=== PATIENT | female | born 1945 | race Caucasian/White ===

== ENCOUNTER → 2017-05-25 11:55 | Outpatient (CLI) | payer MEDICARE, OTHER, SELFPAY | PROVIDERS: Family Provider Internal Medicine; PCP Internal Medicine; Visit Provider Nurse Practitioner Acute Care | DX: J44.1 Chronic obstructive pulmonary disease with (acute) exacerbation (principal) | CPT/HCPCS: 87070; 87077; 87186; 87205 ==

== ENCOUNTER → 2017-07-07 09:36 | Outpatient (CLI) | payer MEDICARE, OTHER, SELFPAY ==
--- NOTE | 2017-07-07 11:09 | PFTCOMP ---
COMPLETE PULMONARY FUNCTION TEST INTERPRETATION Brief HPI: Patient is a 71 year old female, currently under the care of Amelia Lam, who presents to [facility] for complete pulmonary function tests secondary to diagnosis of COPD. Respiratory therapist reports good effort and reproducible results. Interpretation: Forced expiration spirometry shows a severe large airways obstructive ventilatory defect with an FEV1 of 52 % predicted. There is no significant bronchodilator response by strict ATS criteria. Spirograms are of good quality and plateau slowly, indicating slowly emptying areas of the lungs. The respiratory flow volume loop shows decreased expiratory flow rates at all lung volumes consistent with airway obstruction. Lung volumes by body plethysmography show an elevated total lung capacity at 5.13 L, 122 % predicted. FRC and RV are elevated out of proportion. Lung volume measurements are consistent with hyperinflation and air-trapping. Diffusion capacity by carbon monoxide is decreased at 53 % predicted. The airway resistance is elevated. Compared to previous pulmonary function tests from 10/16/2015, there has been no significant change. Impression: Irreversible moderately severe large airways obstructive ventilatory defect with a symmetric reduction diffusing capacity resulting in air trapping with hyperinflation. There is been no significant private branch exchange repairer the last 2 years.
--- NOTE | 2017-07-07 11:12 | PFTCOMP_ITS ---
COMPLETE PULMONARY FUNCTION TEST INTERPRETATION Brief HPI: Patient is a 71 year old female, currently under the care of Amelia Lam, who presents to [facility] for complete pulmonary function tests secondary to diagnosis of COPD. Respiratory therapist reports good effort and reproducible results. Interpretation: Forced expiration spirometry shows a severe large airways obstructive ventilatory defect with an FEV1 of 52 % predicted. There is no significant bronchodilator response by strict ATS criteria. Spirograms are of good quality and plateau slowly, indicating slowly emptying areas of the lungs. The respiratory flow volume loop shows decreased expiratory flow rates at all lung volumes consistent with airway obstruction. Lung volumes by body plethysmography show an elevated total lung capacity at 5.13 L, 122 % predicted. FRC and RV are elevated out of proportion. Lung volume measurements are consistent with hyperinflation and air-trapping. Diffusion capacity by carbon monoxide is decreased at 53 % predicted. The airway resistance is elevated. Compared to previous pulmonary function tests from 10/16/2015, there has been no significant change. Impression: Irreversible moderately severe large airways obstructive ventilatory defect with a symmetric reduction diffusing capacity resulting in air trapping with hyperinflation. There is been no significant exchange mechanic the last 2 years.
== END ==
PROVIDERS: Family Provider Internal Medicine; PCP Internal Medicine; Visit Provider Nurse Practitioner Acute Care
DX: J44.9 Chronic obstructive pulmonary disease, unspecified (principal); R06.00 Dyspnea, unspecified
CPT/HCPCS: 94060; 94726; 94729

== ENCOUNTER → 2017-11-17 09:00 | Outpatient (CLI) | payer MEDICARE, OTHER, SELFPAY | PROVIDERS: Family Provider Internal Medicine; PCP Internal Medicine; Visit Provider Anesthesiology Pain Medicine | DX: M54.9 Dorsalgia, unspecified (principal); M79.606 Pain in leg, unspecified | CPT/HCPCS: 72148 ==

== ENCOUNTER → 2018-08-04 | Outpatient (CLI) | payer MEDICARE, OTHER, SELFPAY ==
[2018-05-08 14:35] VITALS: BMI 24.5
[2018-08-04 11:37] VITALS: PULSE 68; PULSE 70; PULSE 80; PULSE 85; PULSE 87; PULSE 88; PULSE 89; O2SAT 90; O2SAT 91; O2SAT 93; O2SAT 95
--- NOTE | 2018-08-04 14:18 | PCM.PSN.6M ---
PSN 6 Minute Walk Test - 6 Minute Walk Test 6 Minute Walk Test: 6 Minute Walk Test PSN:6-Minute Walk Test Start: 08/04/18 11:33 Freq: Status: Active Protocol: [id number].6MINW Document 08/04/18 11:37 ИВАН (Rec: 08/04/18 11:40 ИВАН [id number]) 6 Minute Walk Test Date Performed 08/04/18 Time Performed 11:20 Height 5 ft 1 in Weight: 61.235 kg Weight in Pounds 135.[address]: Connor Carrera Assistive device used: None Pre-test Oxygen Delivery Method Room Air Pulse Ox (%) 95 Pulse Rate (60-100 beats/min) 68 Dyspnea Amy Scale (0-10) 0 Exertion Amy Scale (6-20) 6 1st minute Oxygen Delivery Method Room Air Pulse Ox (%) 93 Pulse Rate (60-100 beats/min) 80 2nd minute Oxygen Delivery Method Room Air Pulse Ox (%) 91 Pulse Rate (60-100 beats/min) 85 3rd minute Oxygen Delivery Method Room Air Pulse Ox (%) 90 Pulse Rate (60-100 beats/min) 85 4th minute Oxygen Delivery Method Room Air Pulse Ox (%) 91 Pulse Rate (60-100 beats/min) 87 5th minute Oxygen Delivery Method Room Air Pulse Ox (%) 90 Pulse Rate (60-100 beats/min) 89 6th minute Oxygen Delivery Method Room Air Pulse Ox (%) 91 Pulse Rate (60-100 beats/min) 88 Dyspnea Amy Scale (0-10) 1 Exertion Amy Scale (6-20) 13 Post-test Oxygen Delivery Method Room Air Pulse Ox (%) 93 Pulse Rate (60-100 beats/min) 70 Full Laps Walked 14 Partial Lap, Number of Tiles Walked 41 Total Distance Walked (ft) 867 - Interpretation Interpretation: The patient was able to ambulate 867 feet over the course of 6 minutes on room air with no assistive devices or breaks. The patient did have desaturation as low as 90%. These findings are consistent with a respiratory limitation exercise tolerance. - Recommendations Recommendations: No supplemental oxygen is indicated at this time. However, patient will need to be followed closely given level of desaturation.
== END | disposition home or self-care (01) ==
PROVIDERS: Family Provider Internal Medicine; PCP Internal Medicine; Referring Provider Nurse Practitioner Acute Care; Visit Provider Nurse Practitioner Acute Care
DX: J44.9 Chronic obstructive pulmonary disease, unspecified (principal)
CPT/HCPCS: 94618

== ENCOUNTER → 2018-08-08 | Outpatient (CLI) | payer MEDICARE, OTHER, SELFPAY ==
[2018-05-08 14:35] VITALS: BMI 24.5
--- NOTE | 2018-08-09 11:04 | PFT ---
INTRODUCTION: The patient is a 72-year-old female that presents for pulmonary function studies secondary to a diagnosis of COPD. Respiratory therapy reports good patient effort. Bronchodilators were used during testing. INTERPRETATION: Forced expiration spirometry demonstrates the presence of a severe large airways obstructive ventilatory defect. There was no significant response to aerosolized bronchodilators, based upon strict ATS criteria. Spirograms are of fair quality and do not plateau indicating slow emptying of the lungs. Body plethysmography was performed and reveals an elevated TLC and RV, indicative of underlying hyperinflation and air-trapping. Diffusing capacity by single breath CO is reduced at 57% of predicted. IMPRESSION: Irreversible severe large airways obstructive ventilatory defect with associated hyperinflation, air trapping and reduction in diffusing capacity.
== END | disposition home or self-care (01) ==
LOC: PSN 10:51
PROVIDERS: Family Provider Internal Medicine; PCP Internal Medicine; Referring Provider Nurse Practitioner Acute Care; Visit Provider Nurse Practitioner Acute Care
DX: J44.9 Chronic obstructive pulmonary disease, unspecified (principal)
CPT/HCPCS: 94060; 94726; 94729

== ENCOUNTER → 2019-01-01 20:48 | Outpatient (CLI) | payer MEDICARE, SELFPAY ==
[2018-11-28 08:30] VITALS: BMI 25.7
[2018-12-20 11:23] VITALS: BMI 25.7
== END ==
PROVIDERS: Family Provider Internal Medicine; PCP Internal Medicine; Referring Provider Internal Medicine Critical Care Medicine; Visit Provider Internal Medicine Critical Care Medicine
DX: G47.33 Obstructive sleep apnea (adult) (pediatric) (principal)
CPT/HCPCS: 95811

== ENCOUNTER → 2019-01-30 | Outpatient (CLI) | payer MEDICARE, OTHER, SELFPAY ==
[2018-12-20 11:23] VITALS: BMI 25.7
--- NOTE | 2019-01-30 11:02 | BD_ITS ---
STUDY: DUAL ENERGY X-RAY ABSORPTIOMETRY / DXA REASON FOR EXAM: Female, 73 years old. Early menopause. Loss of height. TECHNIQUE: Bone Mineral Density (BMD) measurements of lumbar spine and bilateral hips were obtained. COMPARISON: Comparison is made with prior examination of July 23, 1997. FINDINGS: Lumbar Spine (L1-L4): g/cm2 (0.913) / T-score (-2.1) / Z-score (-0.4) Findings are suggestive of osteopenia with a high fracture risk. Left Femur Total: g/cm2 (0.833) / T-score (-1.4) / Z-score (0.2) Left Femoral Neck: g/cm2 (0.700) / T-score (-2.4) / Z-score (-0.6) Right Femur Total: g/cm2 (0.758) / T-score (-2.0) / Z-score (-0.3) Right Femoral Neck: g/cm2 (0.658) / T-score (-2.7) / Z-score (0.9) The T-Scores on the most recent prior examination were: Left Femur Total: which represents a worsening of 15.2%. BD/Dexa Bone Density Study IMPRESSION: The patient is considered osteoporotic as outlined below according to World [employer] Organization (WHO) criteria with a high fracture risk. There has been worsening of bone density since the previous examination. Reference Information: The T-score is the number of standard deviations above or below the standard which is normal for young adults at their peak bone mineral density. The World Health Organization (WHO) interprets the T-scores as follows: Above -1 Normal bone density Between -1 and -2.5 Osteopenia Equal to / or below -2.5 Osteoporosis As a practical clinical guideline, osteopenia may be graded as follows: Mild -1 through -1.5 Moderate -1.6 through -2.0 Severe -2.1 through -2.4 The Z-score is the number of standard deviations above or below age-matched controls. A Z-score of less than -1.5 would be considered abnormal. References: 1. NIH Osteoporosis and Related Bone Diseases http://www.osteo.org 2. International Society for Clinical Densitometry http://www.iscd.org 3. National Osteoporosis Foundation http://www.nof.org Electronically Signed: Peewee Almodovar, at 11:12 EDT , Service support ,
== END | disposition home or self-care (01) ==
LOC: OPBD 10:33
PROVIDERS: Family Provider Internal Medicine; PCP Internal Medicine; Referring Provider Internal Medicine; Visit Provider Internal Medicine
DX: M85.89 Other specified disorders of bone density and structure, multiple sites (principal)
CPT/HCPCS: 77080

== ENCOUNTER → 2019-06-12 13:42 | Outpatient (CLI) | payer MEDICARE, OTHER, SELFPAY ==
[2019-05-15 06:12] VITALS: BMI 27.1
[2019-06-12 13:17] VITALS: BMI 27.1
--- NOTE | 2019-06-12 13:43 | CT_ITS ---
STUDY: LOW DOSE CT LUNG CANCER SCREENING REASON FOR EXAM: Female, 73 years old. LUNG CANCER SCREENING.40PACK YEAR HISTORY RADIATION DOSAGE (If Supplied By Facility): CTDIvol = ( 3.02 ) mGy, DLP = ( 93.65 ) mGycm TECHNIQUE: No contrast was administered. Low dose technique was utilized (average mAS-38 and kVp 120). 1.25 mm axial source images with a slice interval of 1.25-mm were reconstructed in lung windows. 2.5 mm axial source images with a slice interval of 2.5-mm were reconstructed in lung windows. 5.0 mm axial source images with a slice interval of 5.0-mm were reconstructed in soft tissue windows. Nodule measured using lung windows on PACS and/or independent workstation with automated measurement of minimum and maximum diameter. Nodule measurement reported as average diameter rounded to the nearest whole number. Growth is defined as an increase ins size of greater than 1.5 mm. COMPARISON: Comparison is made with prior examination January 11, 2015. NODULES: No suspicious nodules are seen. Emphysema: Minimal emphysematous changes. Endobronchial lesion: None Aorta: Atherosclerotic calcification of the aortic arch. Coronary arteries: Coronary artery calcification. Heart: Unremarkable. Pulmonary artery: Unremarkable. Mediastinal nodes: Small mediastinal lymph nodes. Other chest and abdominal findings: Degenerative changes of the thoracic spine. CT/Low Dose CT Lung Screening IMPRESSION: Lung-RADS category 2 - Continue annual screening with LDCT in 12 months. IMPORTANT NOTES FOR USE: ACR Lung-RADS Version 1.0 Assessment Categories Release Date: July 30, 2013 Category: Coded 0-4 bases on nodule(s) with highest degree of suspicion. Negative screen is defined as categories 1 and 2; a positive screen is defined as categories 3 and 4. Category 3 and 4A nodules that are unchanged on interval CT should be coded as category 2, and individuals returned to screening in 12 months. Category 4X: Category 3 or 4 nodules with additional imaging findings that increase the suspicion of lung cancer, such as spiculation, GGN that doubles in size in 1 year, enlarged lymph notes, etc. Category Modifiers: S (significant finding unrelated to lung cancer) and C (prior history of treated lung cancer) may be added to the 0-4 Lung-RADS Electronically Signed: Peewee Almodovar, at 14:58 EDT , Service support ,
--- NOTE | 2019-06-12 13:46 | CT_ITS ---
STUDY: CT SOFT TISSUE NECK WITH CONTRAST REASON FOR EXAM: Female, 73 years old. Palpable lumps in the posterior neck per patient. RADIATION DOSAGE (If Supplied By Facility): CTDIvol = ( 17.82 ) mGy, DLP = ( 493.79 ) mGycm TECHNIQUE: The patient was scanned in a multi-detector CT scanner. High resolution transaxial imaging was performed following intravenous administration of 100 mL of Isovue-300. Sagittal and coronal images were reconstructed. Individualized dose optimization techniques were used for this CT. COMPARISON: CT neck without contrast 01/11/2015. FINDINGS: Normal bilateral parotid glands. Normal bilateral table setter spaces. Normal bilateral parapharyngeal spaces. Normal bilateral carotid spaces. Normal bilateral sublingual and submandibular glands and spaces. Normal visualized nasopharynx. Normal retropharyngeal space. Normal perivertebral space. Normal visualized bilateral faucial tonsils. The visualized tongue, tongue base and oropharynx are normal. The visualized cervical lymph nodes (levels I-) are within normal size limits, and maintain normal morphology. There is no demonstrated solid or cystic mass lesion. There is no abnormal contrast enhancement. Normal epiglottis, bilateral vallecula and hypopharynx. The pre-epiglottic and paraglottic adipose spaces are normal. Normal visualized bilateral piriform sinuses, aryepiglottic folds, vocal cords, and arytenoid-cricoid articulations. Normal subglottic trachea. Small hypodense nodules in both lobes of the thyroid gland. Normal visualized pulmonary apices. Normal visualized paranasal sinuses. Pronounced C4-C5 disc space height narrowing with endplate sclerosis and minimal asymmetric osteophytes arising from the uncovertebral joints. Pronounced C6-C7 disc space height narrowing with small anterior and posterior marginal spurs. Moderate C5-C6 disc space height narrowing. Minimal degenerative anterolisthesis of C3 on C4. CT/Soft Tissue Neck WITH Contrast IMPRESSION: 1. No CT evidence of mass or lymphadenopathy in the suprahyoid neck and infrahyoid neck. 2. Small and few benign reactive nodes in the suprahyoid neck are unchanged. 3. Small hypodense nodules in both thyroid lobes were present previously. 4. No significant interval changes when compared to 01/11/2015. Electronically Signed: Chip Flowers MD at 16:16 EDT , Service support ,
[2019-06-12 14:05] LABS: CREATININE FINGERSTICK 0.7 mg/dL (0.55-1.02)
== END ==
PROVIDERS: PCP Internal Medicine; Referring Provider Nurse Practitioner Family; Visit Provider Nurse Practitioner Family
DX: R59.0 Localized enlarged lymph nodes (principal); Z12.2 Encounter for screening for malignant neoplasm of respiratory organs; Z87.891 Personal history of nicotine dependence
CPT/HCPCS: 70491; G0297; Q9967

== ENCOUNTER → 2019-08-28 | Outpatient (CLI) | payer MEDICARE, SELFPAY ==
[2019-08-28 08:41] VITALS: BMI 27.1
== END | disposition home or self-care (01) ==
LOC: LABSPEC 14:08
PROVIDERS: PCP Internal Medicine; Referring Provider Nurse Practitioner Acute Care; Visit Provider Nurse Practitioner Acute Care
DX: J44.9 Chronic obstructive pulmonary disease, unspecified (principal); G47.33 Obstructive sleep apnea (adult) (pediatric)
CPT/HCPCS: 87070; 87077; 87186; 87205

== ENCOUNTER → 2019-11-20 09:38 | Outpatient (CLI) | payer MEDICARE, SELFPAY ==
[2019-08-28 08:41] VITALS: BMI 27.1
== END ==
PROVIDERS: PCP Internal Medicine; Visit Provider Nurse Practitioner Acute Care
DX: J44.9 Chronic obstructive pulmonary disease, unspecified (principal)
CPT/HCPCS: 87070; 87205

== ENCOUNTER → 2019-12-24 13:28 | Outpatient (CLI) | payer MEDICARE, OTHER, SELFPAY ==
[2019-08-28 08:41] VITALS: BMI 27.1
[2019-12-24 14:13] LABS: BNP,B-Type NATRIURETIC PEPTIDE 23.8 pg/mL (0-100)
== END ==
PROVIDERS: PCP Internal Medicine; Referring Provider Internal Medicine Critical Care Medicine; Visit Provider Internal Medicine Critical Care Medicine
DX: I50.32 Chronic diastolic (congestive) heart failure (principal)
CPT/HCPCS: 36415; 83880

== ENCOUNTER → 2020-01-11 12:43 | Outpatient (CLI) | payer MEDICARE, OTHER, SELFPAY ==
[2019-08-28 08:41] VITALS: BMI 27.1
--- NOTE | 2020-01-11 12:43 | ECHOD_ITS ---
Reason For Study: DYSPNEA Procedure This was a 2D Doppler, Color Flow transthoracic echocardiogram. Exam performed in department. Left Ventricle Normal LV size. The estimated ejection fraction is 65 %. No evidence for diastolic dysfunction. No regional wall motion abnormalities noted. Right Ventricle Normal RV size. Normal systolic function. Atria Normal left atrium. Normal right atrium. No doppler evidence for ASD. Mitral Valve There is no mitral valve stenosis. No mitral valve insufficiency. Tricuspid Valve There is no tricuspid stenosis. Trivial tricuspid valve insufficiency. Pulmonary artery systolic pressure is 30-35 mmHg. Aortic Valve Trisinus/trileaflet aortic valve. There is no aortic stenosis. No aortic valve insufficiency. Pulmonic Valve There is no pulmonic valvular stenosis. No pulmonic valve insufficiency. Great Vessels Normal aortic root. Pericardium/Pleural No pericardial effusion. MMode/2D Measurements & Calculations LVIDd: 3.8 cm IVSd: 0.78 cm Ao root diam: 3.2 cm LVIDs: 2.4 cm LVPWd: 0.85 cm FS: 36.2 % LAV(MOD-bp): 29.7 ml LVAd ap4: 21.6 cm2 SV(MOD-sp4): 33.1 ml LAV(MOD-bp) Indexed: 18.6 ml/m2 EDV(MOD-sp4): 55.3 ml LAV(MOD-sp2): 32.4 ml EDV(sp4-el): 55.3 ml LAV(MOD-sp4): 26.9 ml LVAs ap4: 12.2 cm2 ESV(MOD-sp4): 22.2 ml ESV(sp4-el): 21.9 ml EF(MOD-sp4): 59.8 % EF(sp4-el): 60.4 % SV(sp4-el): 33.4 ml LA A4 area: 12.6 cm2 LA dimension(2D): 3.4 cm RA A4 area: 9.9 cm2 Time Measurements MV dec time: 0.30 sec Doppler Measurements & Calculations MV E max barry: 50.7 cm/sec Lat Peak E' Barry: 13.5 cm/sec Med Peak E' Barry: 8.3 cm/sec MV A max barry: 75.9 cm/sec E/E' lat: 3.7 E/E' med: 6.1 MV E/A: 0.67 Ao V2 max: 164.6 cm/sec LV V1 max: 103.2 cm/sec PA V2 max: 118.3 cm/sec Ao max P.8 mmHg LV V1 max P.3 mmHg TR max barry: 274.7 cm/sec TR max P.2 mmHg Interpretation Summary The estimated ejection fraction is 65 %. No evidence for diastolic dysfunction. Ordering Physician: Connor Carrera Referring Physician: ERICK ZULUAGA Performed By: Frances Quiñones, PENNY, RVT
--- NOTE | 2020-01-14 08:57 | PFT ---
INTRODUCTION: The patient is a 74-year-old female that presents for pulmonary function studies secondary to a diagnosis of COPD. Respiratory therapy reports good patient effort. Bronchodilators were used during testing. INTERPRETATION: Forced expiration spirometry demonstrates the presence of a severe large airways obstructive ventilatory defect. There was no significant response to aerosolized bronchodilators. Spirograms are of fair quality and do not plateau indicating slow emptying of the lungs. Body plethysmography was performed and revealed an elevated TLC and RV, indicative of underlying hyperinflation and air trapping. Diffusing capacity by single breath CO was reduced at 55% of predicted. Overall, there has been stability in the patient's PFTs since August 2018. IMPRESSION: Irreversible severe large airways obstructive ventilatory defect with associated hyperinflation, air trapping and symmetric reduction in diffusing capacity.
== END ==
PROVIDERS: PCP Internal Medicine; Referring Provider Internal Medicine Critical Care Medicine; Visit Provider Internal Medicine Critical Care Medicine
DX: R06.00 Dyspnea, unspecified (principal); R06.02 Shortness of breath; I50.32 Chronic diastolic (congestive) heart failure; J44.9 Chronic obstructive pulmonary disease, unspecified
CPT/HCPCS: 93306; 94060; 94726; 94729

== ENCOUNTER → 2020-01-30 11:45 | Outpatient (CLI) | payer MEDICARE, OTHER, SELFPAY ==
[2020-01-30 10:49] VITALS: BMI 25.1
== END ==
PROVIDERS: PCP Internal Medicine; Referring Provider Nurse Practitioner Acute Care; Visit Provider Nurse Practitioner Acute Care
DX: J44.1 Chronic obstructive pulmonary disease with (acute) exacerbation (principal)
CPT/HCPCS: 87070; 87205; 94667

== ENCOUNTER 2020-05-30 11:01 | Inpatient (IN) | payer MEDICARE, OTHER, SELFPAY ==
[2020-03-14 13:13] VITALS: BMI 25.9
[2020-05-30] VITALS (19 sets, daily range): BP systolic 103–139; BP diastolic 56–98; PULSE 81–103; RESP 12–24; TEMP 36.6–36.9; O2SAT 88–99; BMI 25.4; BMI 25.7; BMI 25.8
--- NOTE | 2020-05-30 11:38 | EKG12_ITS ---
Test Reason : SOB Blood Pressure : / mmHG Vent. Rate : 074 BPM Atrial Rate : 074 BPM P-R Int : 146 ms QRS Dur : 080 ms QT Int : 374 ms P-R-T Axes : 079 021 034 degrees QTc Int : 415 ms Normal sinus rhythm Normal ECG Confirmed by LUCRECIA DUARTE, VIVIAN ([id number]), food editor ASH JOHNSON ([id number]) on 06/02/2020 10:11:25 AM Referred By: MAGGY Confirmed By:VIVIAN SINGER MD
--- NOTE | 2020-05-30 11:41 | ED.DCSUM_ITS ---
History of Present Illness Chief Complaint: Shortness of Breath Informant: Patient, Relative Onset: Weeks - 1 Activity at onset: - - gradual and progressively worsening Timing: Continuous Quality: Dyspnea on exertion, Wheezing Current Severity: Moderate Maximum Severity: Moderate Worsened by: Coughing, Exertion Relieved by: Nothing. Not Relieved By: Albuterol, Oxygen Associated Symptoms: Cough, Green sputum. Negative for: Bloody Sputum, Chills, Fever, Rhinorrhea, Sore throat, Sweats Chest Pain: Tightness Narrative: 74-year-old female with COPD had a significant exacerbation about a month ago, treated with antibiotics and steroids, with persistent dyspnea that became noticeably worse about a week ago. She called her laminator hand Dr. Carrera who called [place] in which she has been taking for about a week now, but she is feeling much worse and instead of seen him in the office today she came to the ER because now she is very dyspneic at rest even without exerting herself or walking. Aerosols and turning up her oxygen at home have not helped at all. She states when she is doing well she is on no oxygen but has it at home, and recently has been on to recently moved up to 3 L nasal cannula. She just had her initial/first COVID-19 vaccine, she has not had COVID-19 that she knows of and she has had no contact with anyone that she knows of with COVID-19 recently in the last month or 2. - Past Medical History (1) Restless legs syndrome Status: Chronic (2) Spinal stenosis Status: Chronic (3) Bronchiectasis Status: Chronic Comment: CT chest from January 11, 2015 personally reviewed and shows evidence of bronchiectasis. (4) Chronic diastolic (congestive) heart failure Status: Chronic (5) Chronic hypoxemic respiratory failure Status: Chronic (6) GERD (gastroesophageal reflux disease) Status: Chronic (7) History of sudden cardiac arrest Status: Chronic (8) NOAM (obstructive sleep apnea) Status: Chronic Comment: 18/12 cm water With 1 LPM oxygen bleed (9) Pulmonary valve insufficiency Status: Chronic (10) Seasonal allergies Status: Chronic (11) Stage 3 severe COPD by GOLD classification Status: Chronic Comment: FEV1 46% of predicted Past Medical History - Allergies and Home Meds Allergies/Adverse Reactions: Allergies hydrocodone [From Vicodin] Allergy (Mild, Verified 05/30/20 11:04) Nausea ropinirole Allergy (Verified 05/30/20 11:04) hives azithromycin [From Zithromax] Adverse Reaction (Verified 05/30/20 11:04) Other felt flush/headache/just didnt feel right neck pain Primary Care Physician: Jose Luis Culver MD [Primary Care Provider] - Doctors: Pultere - Deandre Surgical History: cholecystectomy, hysterectomy, tonsillectomy Smoking Status: Former smoker - Family History Paternal Family History: Family History (Last Reviewed 03/14/20 @ 13:29 by Amelia Lam DUMP MOTOR OPERATOR, DUMP MOTOR OPERATOR-C) Father Lung disease Asthma Brother Asthma Heart disease Mother Arthritis Sister Lung Cancer Family History: Reports: Asthma, COPD Maternal Family History: Family History (Last Reviewed 03/14/20 @ 13:29 by Amelia Lam NP, DUMP MOTOR OPERATOR-C) Father Lung disease Asthma Brother Asthma Heart disease Mother Arthritis Sister Lung Cancer Family History: Reports: No pertinent history Review of Systems General: Reports: Malaise. Denies: Chills, Fever, Sweats Eyes: Denies: Visual changes - bilaterally, Diplopia ENT: Reports: - - No loss of taste/smell. Denies: Bilateral ear pain, Rhinorrhea, Sore throat Cardiovascular: Reports: Chest pain - Tightness/wheezing only. Denies: Palpitations, Heart racing Respiratory: Reports: Dyspnea, Cough, Sputum, Dyspnea on exertion. Denies: Orthopnea Gastrointestinal: Denies: Abdominal pain, Nausea, Vomiting, Diarrhea, Melena, Hematochezia Genitourinary: Denies: Dysuria, Hematuria, Frequency Musculoskeletal: Reports: Arthralgias - Chronic and mild, Extremity Pain - Unexplained right arm discomfort x2-3 weeks, mild and bothersome. Denies: Myalgias, Neck pain, Back pain, Swelling Skin: Denies: Rash, Wounds Neurological: Denies: Headache, Weakness, Numbness Physical Exam Vital Signs/Narrative: Vital Signs Temp Pulse Resp BP Pulse Ox 05/30/20 11:03 98.4 F 95 22 H 130/56 H 91 05/30/20 11:01 98.4 F 95 22 H 130/56 H 91 Inital Vital Signs reviewed: Yes General: Well nourished, Well developed, Acute Distress - Mild, respiratory Head: Normocephalic, Atraumatic Eyes: Perrl, EOMI ENT: Moist mucous membranes, No rhinorrhea Neck: Supple, Nontender, No lymphadenopathy, No JVD, - - No stridor Cardiovascular: Regular rate, Regular rhythm, No murmurs Respiratory: Chest nontender, Wheezing - Mild, sounds tight and diminished throughout. Breath sounds symmetric., - - Speaking in 10-20 word sentences. Negative for: Rales, Rhonchi, Retractions Abdomen: Soft, Nontender, Nondistended, Normal bowel sounds Back: Nontender, Normal Inspection Extremities: Nontender, No edema. Negative for: Calf Tenderness Skin: Normal color, No rash, No Trauma Neurological: Alert, Oriented x3, Cranial nerves II-XII grossly intact, Normal Strength, Normal Sensation Psychological: Normal affect, Normal Mood Diagnostic/Tx/Re-eval Chest X-Ray - ED: 1 View, Read by ED Physician, No Acute Disease, Chronic Changes Impressions Chest X-Ray 05/30/20 12:34 IMPRESSION: Hyperinflation. The lungs are clear. Electronically Signed: Peewee Almodovar MD at 12:50 EST , Service support , 05/30/20 12:34 Chest 1 View (Portable) [RAD] Stat 05/30/20 12:00 Mucosa - Nose SARS-CoV-2 Antigen (Rapid) - Final Laboratory Results 05/30/20 05/30/20 05/30/20 11:20 11:20 11:20 WBC 7.8 RBC 4.44 Hgb 12.9 Hct 41.3 MCV 93.0 MCH 29.1 MCHC 31.2 L RDW Std Deviation 45.8 H RDW Coeff of Yaquelin 13.4 Plt Count 378 MPV 10.1 Immature Gran % (Auto) 0.300 Neut % (Auto) 60.3 Lymph % (Auto) 20.1 Garfield % (Auto) 9.0 Eos % (Auto) 9.1 H Baso % (Auto) 1.2 H Absolute Neuts (auto) 4.7 Absolute Lymphs (auto) 1.56 Nucleated RBC % 0 Specimen Type Sample Site pH Bicarbonate Actual Total CO2 Base Excess O2 Saturation ABG pCO2 ABG pO2 O2 Delivery Device Liter Flow Sodium 140 Potassium 4.4 Chloride 107 Carbon Dioxide 27.0 Anion Gap 6 BUN 16 Creatinine 0.80 Estim Creat Clear Calc 46.56 Est GFR (MDRD) Af Amer 90 Est GFR (MDRD) Non-Af 74 BUN/Creatinine Ratio 19.9 Glucose 91 Lactic Acid 0.7 Calcium 8.9 Troponin I < 0.015 B-Natriuretic Peptide 05/30/20 05/30/20 11:20 12:42 WBC RBC Hgb Hct MCV MCH MCHC RDW Std Deviation RDW Coeff of Yaquelin Plt Count MPV Immature Gran % (Auto) Neut % (Auto) Lymph % (Auto) Garfield % (Auto) Eos % (Auto) Baso % (Auto) Absolute Neuts (auto) Absolute Lymphs (auto) Nucleated RBC % Specimen Type ART Sample Site R Radial pH 7.40 Bicarbonate Actual 27.7 H Total CO2 29 Base Excess 3 H O2 Saturation 99 ABG pCO2 45.0 ABG pO2 131 H O2 Delivery Device Cannula Liter Flow 4.0 Sodium Potassium Chloride Carbon Dioxide Anion Gap BUN Creatinine Estim Creat Clear Calc Est GFR (MDRD) Af Amer Est GFR (MDRD) Non-Af BUN/Creatinine Ratio Glucose Lactic Acid Calcium Troponin I B-Natriuretic Peptide 28.3 - Rhythm Strip Rhythm Strip: Sinus Rhythm Rate: 74 Ectopy: None - EKG Initial EKG Interpretation: Sinus Rhythm, No Acute Injury Pattern - normal EKG Treatment - Dyspnea: Albuterol, Atrovent, Steroid, - - terbutaline, Bipap Repeat Evaluation: Improved - very little - Medical Decision Making Initially ordered BiPAP, however it did not get placed and since the patient was a little improved after terbutaline and a duo nebulizer treatment, we skipped. She was still tachypneic and dyspneic at rest although she felt a little better, not very much. She was not real comfortable going home, and I was in agreement despite seeing a normal ABG and the rest of her work-up looks good as well. We turned her oxygen down from 4 L to 2 and she maintained saturations 95%. We took her oxygen off, she desat down to 88% and still dyspneic. Oxygen placed back at 2 L, discussed with hospitalist. ED Disposition - Plan for ED Patient: Disposition: Acute Care Hospital [facility] Diagnosis: COPD exacerbation, Acute respiratory failure with hypoxia Referrals: Jose Luis Culver MD [Primary Care Provider] -
[2020-05-30 12:03] LABS: Absolute Lymphocyte Count 1.56 X10^3/uL (0.83-4.51); Absolute Neutrophil Count 4.7 X10^3/uL (2.0-7.7); Basophil# 0.09 X10^3/uL; Basophil% 1.2 % (0-1); Eosinophil# 0.71 X10^3/uL; Eosinophils% 9.1 % (0-5); Hematocrit 41.3 % (37-47); Hemoglobin 12.9 g/dL (12.0-15.0); Lymphocyte # 1.56 X10^3/ul (4.0); Lymphocyte % 20.1 % (19-41); Mean Corp Hgb Conc 31.2 g/dL (32-36); Mean Corpuscular Hgb 29.1 pg (27.0-32.0); Mean Platelet Vol. 10.1 fl (6.2-12.0); NRBC Flagged by Analyzer 0 % (0-5); Neutrophil # 4.68 X10^3/uL (2.7-7.7); Neutrophil % 60.3 % (47-70); Platelet Count 378 K/mm3 (150-450); RBC Distribution Width CV 13.4 % (11.6-14.6); RBC Distribution Width SD 45.8 fl (35.1-43.9); Red Blood Count 4.44 M/mm3 (4.2-5.4); White Blood Count 7.8 K/mm3 (4.4-11.0)
[2020-05-30] MEDS: Ipratropium/Albuterol Sulfate 3 ML AMPUL.NEB INHALATION ×3 (12:10→22:53)
[2020-05-30 12:14] LABS: Anion Gap 6 (5-15); BUN 16 mg/dL (7-18); BUN/Creat Ratio 19.9 RATIO (10-20); Calcium,Total 8.9 mg/dL (8.5-10.1); Chloride 107 mmol/L (98-107); EST Glomerular Filtration Rate 74 mL/min (>60); Est Glom Filt Rate - Afr Amer 90 mL/min (>60); Estimated Creatinine Clearance 46.56 ml/min; Glucose 91 mg/dL (74-106); Potassium 4.4 mmol/L (3.5-5.1); Sodium Level 140 mmol/L (136-145)
[2020-05-30] MEDS: Terbutaline 1 MG/ML Vial 0.25 MG SC (12:26)
[2020-05-30] MEDS: 0.9% Normal Saline 1,000 ML 150 ML IV (12:26)
[2020-05-30] MEDS: MethylPREDNISolone 125 MG/2 ML Vial IV (12:26)
[2020-05-30 12:29] LABS: BNP,B-Type NATRIURETIC PEPTIDE 28.3 pg/mL (0-100)
[2020-05-30 12:33] LABS: Lactic Acid 0.7 mmol/L (0.4-1.9)
--- NOTE | 2020-05-30 12:34 | RAD_ITS ---
STUDY: X-RAY CHEST REASON FOR EXAM: Female, 74 years old. Sob TECHNIQUE: Single AP portable view of the chest. COMPARISON: Comparison is made with prior study dated 02/16/2016. FINDINGS: EKG electrodes are seen. Hyperinflation. The lungs are clear. There is no demonstrated pleural abnormality. Normal size heart. Normal mediastinum and jaclyn. Normal visualized pulmonary arteries. There is atherosclerotic calcification of the aortic arch with tortuosity. Normal visualized thoracic spine. Normal visualized ribs, clavicles, and shoulders. There is no demonstrated abnormality of the visualized soft tissue structures of the upper abdomen. RAD/Chest 1 View (Portable) IMPRESSION: Hyperinflation. The lungs are clear. Electronically Signed: Peewee Almodovar MD at 12:50 EST , Service support ,
[2020-05-30 12:45] LABS: Base Excess 3 mmol/L (-2 to +2); Bicarbonate 27.7 mmol/L (22-26); Blood Gas Specimen Type ART; O2 Delivery Device Cannula; PO2 131 mmHG (75-100); SITE R Radial; SO2 99 % (95-99); Total Carbon Dioxide 29 mmol/L
[2020-05-30] MEDS: Albuterol 2.5 MG/3 ML VIAL.NEB. INHALATION ×2 (13:17)
--- NOTE | 2020-05-30 14:25 | PCM.HP.STD ---
Problem List (1) Acute respiratory failure with hypoxia Status: Acute (2) Bronchiectasis Status: Chronic Qualifiers: Bronchiectasis type: uncomplicated Qualified Code(s): J47.9 - Bronchiectasis, uncomplicated Comment: CT chest from January 11, 2015 personally reviewed and shows evidence of bronchiectasis. (3) Restless legs syndrome Status: Chronic (4) Spinal stenosis Status: Chronic Qualifiers: Spinal region: thoracolumbar Qualified Code(s): M48.05 - Spinal stenosis, thoracolumbar region (5) PND (post-nasal drip) Status: Acute (6) Status post right inguinal hernia repair Status: Resolved Comment: 04/20/17 (7) Inguinal hernia Status: Resolved Qualifiers: Obstruction and gangrene presence: without obstruction or gangrene Laterality: unilateral Recurrence: non-recurrent Qualified Code(s): K40.90 - Unilateral inguinal hernia, without obstruction or gangrene, not specified as recurrent (8) Stage 3 severe COPD by GOLD classification Status: Chronic (9) History of colonoscopy Status: Resolved (10) History of laparoscopic cholecystectomy Status: Resolved (11) EF 70% Status: Chronic (12) Muscular deconditioning Status: Chronic (13) Chronic diastolic (congestive) heart failure Status: Chronic (14) Seasonal allergies Status: Chronic (15) Epigastric pain Status: Chronic (16) Dyspnea Status: Chronic (17) Hypersomnia Status: Chronic (18) NOAM (obstructive sleep apnea) Status: Chronic Comment: 18/12 cm water With 1 LPM oxygen bleed (19) Stage 3 severe COPD by GOLD classification Status: Chronic Comment: FEV1 46% of predicted (20) Sinus pain Status: Chronic (21) Chronic hypoxemic respiratory failure Status: Chronic (22) History of sudden cardiac arrest Status: Chronic (23) Pulmonary valve insufficiency Status: Chronic (24) Acute cor pulmonale Status: Chronic (25) Chronic diastolic heart failure Status: Chronic (26) COPD exacerbation Status: Acute (27) History of tracheostomy Status: Resolved Comment: 1969 (28) Shortness of breath Status: Chronic (29) GERD (gastroesophageal reflux disease) Status: Chronic History of Present Illness Date of Admission: 05/30/20 Mrs. Honeycutt is a 74 year old WF the H of severe COPD, NOAM, GERD, seasonal allergies, vitamin D deficiency, depression, and insomnia who presented to the emergency department [facility] on 05/30/2020 with a chief complaint of shortness of breath. Patient states that she has been utilizing her supplemental oxygen, which is not a baseline requirement for her, over proximately the last month. She states she had been using 2 L and about a month ago was treated with antibiotics and steroids by Dr. Carrera who is her primary k 12 school professional. She states she was a little bit better after that but then started to get worse again approximately a week ago. At that time she called Dr. Carrera's office again and she was started on Levaquin which she has been taking since Tuesday. She states overall since the initiation of Levaquin she is feeling worse and now is requiring 3 L nasal cannula. She states that her oxygen saturations did drop to 70% at home on 2 L and she just turned her oxygen up instead of coming to the emergency department. Her only complaints are cough which at this time is nonproductive and shortness of breath. She denies fever, chills, myalgias, change in smell or taste, nausea, vomiting, diarrhea, tingling, numbness, weakness, changes in her bowel or bladder habits, and edema. She had her initial Covid vaccine approximately 1 to 2 weeks ago. Her vitals in the emergency department show that she is afebrile, her heart rate is 90-100, blood pressure is stable at 113/66, her respiratory rate is 18-24, and her's oxygen saturations are 95% on 2 L nasal cannula. Oxygen saturation on room air was 88%. Labs show an unremarkable CBC. ABG shows a pH of 7.4 PCO2 of 29 and a PO2 of 131 on 4 L nasal cannula. Since then her oxygen has been reduced to 2 L. Her BMP is normal. Her B BREWERY CELLAR WORKER is 28.3 and her troponin is less than 0.015. Review of records the patient did have an echocardiogram in January 2020 which showed a normal EF at 65% and no diastolic dysfunction on that echo with a normal RV right pulmonary artery systolic pressures were 30-35. He reports compliance with her BiPap at home. In the emergency department she was treated with terbutaline and a nebulizer and did get some resolution of her shortness of breath but remained tach hypnic and dyspneic at rest. She was also given a dose of IV Levaquin today. Past Medical History Past Medical History (Chronic Problems): Chronic Problems (Last Reviewed 03/14/20 @ 13:29 by Amelia Lam BREWERY CELLAR WORKER, BREWERY CELLAR WORKER-C) Bronchiectasis (Chronic) CT chest from January 11, 2015 personally reviewed and shows evidence of bronchiectasis. Restless legs syndrome (Chronic) Spinal stenosis (Chronic) Stage 3 severe COPD by GOLD classification (Chronic) EF 70% (Chronic) Muscular deconditioning (Chronic) Chronic diastolic (congestive) heart failure (Chronic) Seasonal allergies (Chronic) Epigastric pain (Chronic) Dyspnea (Chronic) Hypersomnia (Chronic) NOAM (obstructive sleep apnea) (Chronic) 18/12 cm water With 1 LPM oxygen bleed Stage 3 severe COPD by GOLD classification (Chronic) FEV1 46% of predicted Sinus pain (Chronic) Chronic hypoxemic respiratory failure (Chronic) History of sudden cardiac arrest (Chronic 01/11/15) Pulmonary valve insufficiency (Chronic) Acute cor pulmonale (Chronic) Chronic diastolic heart failure (Chronic) Shortness of breath (Chronic) GERD (gastroesophageal reflux disease) (Chronic) Medical History: Medical History (Last Reviewed 05/30/20 @ 14:[address] Tanya Dukes, DO) Stage 3 severe COPD by GOLD classification (Chronic) J44.9 EF 70% (Chronic) Muscular deconditioning (Chronic) R29.898 Chronic diastolic (congestive) heart failure (Chronic) I50.32 Seasonal allergies (Chronic) J30.2 Epigastric pain (Chronic) R10.13 Dyspnea (Chronic) R06.00 Hypersomnia (Chronic) G47.10 NOAM (obstructive sleep apnea) (Chronic) G47.33 18/12 cm water With 1 LPM oxygen bleed Stage 3 severe COPD by GOLD classification (Chronic) J44.9 FEV1 46% of predicted Sinus pain (Chronic) J34.89 Chronic hypoxemic respiratory failure (Chronic) J96.11 History of sudden cardiac arrest (Chronic) Onset Date: 01/11/15 Z86.74 Pulmonary valve insufficiency (Chronic) I37.1 Acute cor pulmonale (Chronic) I26.09 Chronic diastolic heart failure (Chronic) I50.32 COPD exacerbation (Acute) J44.1 Shortness of breath (Chronic) R06.02 GERD (gastroesophageal reflux disease) (Chronic) K21.9 Allergies hydrocodone [From Vicodin] Allergy (Mild, Verified 05/30/20 11:04) Nausea ropinirole Allergy (Verified 05/30/20 11:04) hives azithromycin [From Zithromax] Adverse Reaction (Verified 05/30/20 11:04) Other felt flush/headache/just didnt feel right neck pain Home Medications: Ambulatory Orders Medication Instructions Recorded Zolpidem Tartrate [Ambien] 5 mg PO QHS PRN PRN 01/12/15 duloxetine 60 mg capsule,delayed 60 mg PO BID cap 07/14/17 release albuterol sulfate 90 mcg/actuation 2 puff INHALATION Q4H PRN PRN #1 08/28/19 aerosol inhaler inhaler fluticasone fur. 100 mcg-umeclid 1 inh INHALATION QDAY #3 ea 08/28/19 62.5 mcg-vilant 25 mcg inhalat.powder ipratropium 0.5 mg-albuterol 3 mg 3 ml INHALATION 4X/DAY #180 vial 12/24/19 (2.5 mg base)/3 mL nebulization soln Cholecalciferol (Vitamin D3) 1,000 unit PO DAILY 05/30/20 [Vitamin D3] levoFLOXacin tablet [Levaquin 750 mg PO DAILY 05/30/20 tablet] Surgical History: Surgical History (Last Reviewed 05/30/20 @ 14:[address] Tanya Dukes DO) Status post right inguinal hernia repair (Resolved) Z98.890, Z87.19 04/20/17 History of colonoscopy (Resolved) Z98.890 History of laparoscopic cholecystectomy (Resolved) Z98.890, Z90.49 History of tracheostomy (Resolved) Z98.890 1969 Surgical History: cholecystectomy, hysterectomy, tonsillectomy Psychiatric History: No pertinent psych hx MSW History: No pertinent MSW history Lives: Spouse/ Significant Other Smoking Status: Former smoker Tobacco Use: Non-smoker Alcohol: None Drugs: None - *Family History Paternal Family History: Family History (Last Reviewed 05/30/20 @ 14:[address] Tanya Dukes DO) Father Lung disease Asthma Brother Asthma Heart disease Mother Arthritis Sister Lung Cancer History Items: Asthma, COPD Maternal Family History: Family History (Last Reviewed 05/30/20 @ 14:[address] Tanya Dukes DO) Father Lung disease Asthma Brother Asthma Heart disease Mother Arthritis Sister Lung Cancer History Items: No pertinent history Review of Systems Constitutional: Reports: Fatigue. Denies: Anorexia, Chills, Fever, Night Sweats, Malaise, Weakness, Weight Change Eyes: Denies: Blurred vision, Cataracts, Conjunctivae Inflammation, Double vision, Drainage, Eyelid Inflammation, Pain, Redness, Vision Change HEENT: Denies: Difficulty Hearing, Difficulty Swallowing, Ear Pain, Eye Pain, Head Aches, Nasal bleeding, Nasal Congestion, Post Nasal Drip, Sinus Congestion, Sinus Drainage, Sore Throat, Visual Changes Cardiovascular: Denies: Chest Pain, Claudication, Chest Pressure, Chest Tightness, Edema, Heaviness, Light Headedness, Orthopnea, Palpitations, Paroxysmal Noc. Dyspnea, Syncope Respiratory: Reports: Cough, Shortness of Breath, Shortness of breath at rest, Shortness of breath upon exertion, Wheezing. Denies: Hemoptysis, Pleuritic Pain, Sputum production Gastrointestinal: Denies: Abdominal Pain, Constipation, Diarrhea, Dyspepsia, Hematemesis, Hematochezia, Nausea, Vomiting Genitourinary: Denies: Dysuria, Frequency, Hematuria, Hesitancy, Incontinence, Nocturia, Retention, Urgency Musculoskeletal: Denies: Back Pain, Joint Pain, Joint stiffness, Joint swelling, Joint Tenderness, Muscle pain, Neck Pain Skin: Denies: Dryness, Jaundice, Lesions, Pruritis, Rash, Skin Changes, Wounds Neurological: Denies: Balance problems, Blurred vision, Double vision, Change in Speech, Slurred speech, Confusion, Difficulty swallowing, Focal weakness, Headaches, Incoordination, Numbness, Tingling, Tremor, Seizures Psychiatric: Denies: Anxiety, Depression Endocrine: Denies: Change in Body Habitus, Heat/ Cold Intolerance, Polydipsia, Polyuria Hematologic/ Lymphatic: Denies: Adenopathy, Anemia, Easy Bruising, Easy Bleeding, Petechiae, Purpura VTE Information - Inpt Only VTE Present on Admission: No VTE Mechan Device Prophylaxis: SCD's VTE Pharm Prophylaxis ordered?: Yes Patient Problems: Active and Suspected Problems (Last Reviewed 03/14/20 @ 13:29 by Amelia Lam BREWERY CELLAR WORKER, BREWERY CELLAR WORKER-C) Acute respiratory failure with hypoxia (Acute) COPD exacerbation (Acute) - Physical Exam Vitals/I&O's: Vital Signs Temp Pulse Resp BP Pulse Ox 98.2 F 100 18 113/66 95 05/30/20 14:00 05/30/20 14:00 05/30/20 14:00 05/30/20 14:00 05/30/20 14:00 Oxygen Flow Rate (L/min) 2 Oxygen Delivery Method Nasal Cannula Weight: 61.235 kg Body Mass Index (BMI) 25.4 Finger Stick Blood Glucose 164 General: Alert, Oriented x3, Cooperative, No apparent distress, Well developed, Well nourished, - - Older white female sitting up in bed, son at bedside, appears comfortable at rest but does get dyspneic with conversation HEENT: Atraumatic, PERRLA, EOMI, Normocephalic Oral: Moist Mucosa, No Gingival or Mucosal Lesions/ Ulcerations, - - Mallampati 2, no thrush Neck: Supple, No JVD, Negative Carotid Bruits, Negative Hepatojugular Reflux, No Nodes, No Nuchal Rigidity, Trachea Midline, Thyroid Normal Size and Texture Lungs: No rhonchi, No rales, Diminished, Wheezes - Diffuse scattered Cardiovascular: Regular rate, Regular Rhythm, Normal S1, Normal S2, No murmurs, No Ectopic Activity, No rub noted, No Gallop Abdomen: Bowel Sounds Present, Soft, Non Tender, Non-Distended, No Hepato-splenomegaly, No hernias noted Extremities: No clubbing, No cyanosis, No edema, Capillary Refill Less than 3 Seconds, Peripheral Pulses Normal Skin: No rashes, No breakdown Musculoskeletal: No Tenderness to Palpation of Joints or Extremities, No Muscle Wasting, Arthritic Changes Lymphatic: No Cervical, Supraclavicular, or Inguinal Adenopathy Neurological: Cranial nerves II-XII grossly intact, Deep Tendon Reflexes 2+/4 and Symmetrical, Neuro grossly intact, Motor Exam 5/5 strength throughout, Muscle tone normal, Sensory exam intact to light touch and pain, Coordination normal Psych/Mental Status: Normal Affect, Appropriate Microbiology Past 72 Hours 05/30/20 12:00 Mucosa - Nose SARS-CoV-2 Antigen (Rapid) - Final Laboratory Results 05/30/20 11:20: WBC 7.8, RBC 4.44, Hgb 12.9, Hct 41.3, MCV 93.0, MCH 29.1, MCHC 31.2 L, RDW Std Deviation 45.8 H, RDW Coeff of Yaquelin 13.4, Plt Count 378, MPV 10.1, Immature Gran % (Auto) 0.300, Neut % (Auto) 60.3, Lymph % (Auto) 20.1, [place] % (Auto) 9.0, Eos % (Auto) 9.1 H, Baso % (Auto) 1.2 H, Absolute Neuts (auto) 4.7, Absolute Lymphs (auto) 1.56, Nucleated RBC % 0 05/30/20 11:20: Sodium 140, Potassium 4.4, Chloride 107, Carbon Dioxide 27.0, Anion Gap 6, BUN 16, Creatinine 0.80, Estim Creat Clear Calc 46.56, Est GFR (MDRD) Af Amer 90, Est GFR (MDRD) Non-Af 74, BUN/Creatinine Ratio 19.9, Glucose 91, Calcium 8.9, Troponin I < 0.015 05/30/20 11:20: Lactic Acid 0.7 05/30/20 11:20: B-Natriuretic Peptide 28.3 05/30/20 12:42: Specimen Type ART, Sample Site R Radial, pH 7.40, Bicarbonate Actual 27.7 H, Total CO2 29, Base Excess 3 H, O2 Saturation 99, ABG pCO2 45.0, ABG pO2 131 H, O2 Delivery Device Cannula, Liter Flow 4.0 Current Medications Sodium Chloride () 1,000 mls @ 150 mls/hr IV .Q6H40M ONE Stop: 05/30/20 18:17 Last Admin: 05/30/20 12:26 Dose: 150 mls/hr Documented by: Assessment/Plan All Active Problems (Last Reviewed 03/14/20 @ 13:29 by Amelia Lam BREWERY CELLAR WORKER, BREWERY CELLAR WORKER-C) Acute respiratory failure with hypoxia (Acute) PND (post-nasal drip) (Acute) Status post right inguinal hernia repair (Resolved) History of colonoscopy (Resolved) History of laparoscopic cholecystectomy (Resolved) COPD exacerbation (Acute) History of tracheostomy (Resolved) Inguinal hernia (Resolved) Acute hypoxic respiratory insufficiency secondary to acute exacerbation of COPD -Patient is currently requiring 2 L nasal cannula -Baseline requirements are no supplemental oxygen -Check sputum culture if able -Check viral PCR-respiratory -Chest x-ray shows no infiltrate -We will continue Levaquin that was initiated as an outpatient -Pulmonary toilet -Continue home inhaler -Check Legionella and strep pneumo urine antigens -No need for pulmonary consultation at this time--> consider if patient worsens or does not improve symptomatically NOAM -Continue BiPAP nightly at 18/12 centimeters of water COPD -FEV1 is 46% predicted on her last PFTs -Gold classification stage 3 -Continue home inhaler -See above GERD -Patient is currently on no therapy at home -Enter Depression -Continue duloxetine 60 mg twice daily Insomnia -Continue Ambien as needed DVT prophylaxis -Lovenox daily CODE STATUS -Full code Inpatient E&M: 15760 Init Hosp L3
[2020-05-30] MEDS: Acetaminophen 325 MG Tablet 650 MG PO (22:06)
[2020-05-30] MEDS: Zolpidem Tartrate 5 MG Tablet PO (22:06)
[2020-05-30] MEDS: guaiFENesin 600 MG Tablet PO (22:07)
[2020-05-30] MEDS: 0.9% Saline Lock 10 ML Syringe IV (22:08)
[2020-05-30] MEDS: DULoxetine Hcl 60 MG Capsule PO (22:08)
[2020-05-31] VITALS (19 sets, daily range): BP systolic 94–119; BP diastolic 49–69; PULSE 88–108; RESP 12–28; TEMP 36.7–37.1; O2SAT 94–97
[2020-05-31] MEDS: 0.9% Saline Lock 10 ML Syringe IV ×3 (05:41→22:05)
[2020-05-31] MEDS: guaiFENesin 10 ML UDC (200MG/10ML) 20 ML PO ×3 (05:57→19:59)
[2020-05-31 05:58] LABS: Absolute Lymphocyte Count 0.86 X10^3/uL (0.83-4.51); Absolute Neutrophil Count 7.9 X10^3/uL (2.0-7.7); Basophil# 0.01 X10^3/uL; Basophil% 0.1 % (0-1); Hematocrit 35.8 % (37-47); Hemoglobin 11.3 g/dL (12.0-15.0); Lymphocyte # 0.86 X10^3/ul (4.0); Lymphocyte % 9.6 % (19-41); Mean Corp Hgb Conc 31.6 g/dL (32-36); Mean Corpuscular Volume 91.8 fL (81-99); Mean Platelet Vol. 9.9 fl (6.2-12.0); Monocyte# 0.16 X10^3/uL; Monocyte% 1.8 % (0-10); NRBC Flagged by Analyzer 0 % (0-5); Neutrophil # 7.93 X10^3/uL (2.7-7.7); Neutrophil % 88.1 % (47-70); Platelet Count 368 K/mm3 (150-450); RBC Distribution Width CV 13.4 % (11.6-14.6); RBC Distribution Width SD 45.6 fl (35.1-43.9)
[2020-05-31 06:37] LABS: Anion Gap 5 (5-15); BUN 17 mg/dL (7-18); BUN/Creat Ratio 26.2 RATIO (10-20); Calcium,Total 8.5 mg/dL (8.5-10.1); Chloride 107 mmol/L (98-107); Creatinine, Serum 0.65 mg/dL (0.55-1.02); EST Glomerular Filtration Rate 95 mL/min (>60); Est Glom Filt Rate - Afr Amer 115 mL/min (>60); Estimated Creatinine Clearance 37.24 ml/min; Glucose 152 mg/dL (74-106); Magnesium 2.5 mg/dL (1.6-2.6); Sodium Level 140 mmol/L (136-145)
[2020-05-31] MEDS: Ipratropium/Albuterol Sulfate 3 ML AMPUL.NEB INHALATION ×5 (06:50→23:14)
[2020-05-31 07:51] LABS: Phosphorus 3.7 mg/dL (2.5-4.9)
[2020-05-31] MEDS: Enoxaparin 40 MG/0.4 ML Syringe SC (08:38)
[2020-05-31] MEDS: guaiFENesin 600 MG Tablet PO ×2 (08:39→22:08)
[2020-05-31] MEDS: levoFLOXacin 750 MG Tablet PO (08:39)
[2020-05-31] MEDS: DULoxetine Hcl 60 MG Capsule PO ×2 (08:39→22:08)
[2020-05-31] MEDS: Acetaminophen 325 MG Tablet 650 MG PO (10:29)
--- NOTE | 2020-05-31 11:23 | CM.UR ---
Attempted to meet with patient as Dr. Vela was changing her to IP status however upon entering room the respiratory therapist was applying BIPAP. She was very sob. Per chart patient has o2 from [employer], that she got years ago. While RT was getting bipap ready, I asked her if she still had that and she confirmed she did. Asked is she had cpap or bipap at home. She confirmed she had cpap from [employer]. Encouraged resp therapist to go ahead and put on bipap and that we would come back another time when she was not in distress. Dane Morales, RN, CCM.
--- NOTE | 2020-05-31 11:56 | PCM.PROGNOTE ---
Patient Problems: Active and Suspected Problems (Last Reviewed 05/30/20 @ 14:[address] Tanya Dukes, DO) Acute respiratory failure with hypoxia (Acute) PND (post-nasal drip) (Acute) COPD exacerbation (Acute) Subjective: Patient was seen and examined today, she appears dyspneic on any exertion, patient has oxygen at home and has been using it throughout the day, this been over the last 2 months she states. Patient denies any fever chills today. - Physical Exam Vitals/I&O's: Vital Signs Temp Pulse Resp BP Pulse Ox 98.0 F 88 28 H 112/69 97 05/31/20 08:27 05/31/20 11:07 05/31/20 11:07 05/31/20 08:27 05/31/20 11:07 Oxygen Flow Rate (L/min) 2 Oxygen Delivery Method Nasal Cannula Weight: 61.87 kg Body Mass Index (BMI) 25.7 Finger Stick Blood Glucose 164 Intake and Output for Last 24 Hours 05/29/20 05/30/20 05/31/20 23:59 23:59 23:59 Intake Total 1150 / 1150 100 / 100 Output Total 400 / 400 Balance 750 / 750 100 / 100 General: Alert, Oriented x3, Cooperative, No apparent distress, Well developed, Well nourished HEENT: Atraumatic, PERRLA, EOMI, Normocephalic Oral: Moist Mucosa Neck: Supple, No JVD, Trachea Midline, Thyroid Normal Size and Texture Lungs: Diminished, Wheezes - Expiratory wheezes are scattered bilaterally Cardiovascular: Regular rate, Regular Rhythm, Normal S1, Normal S2, No murmurs, PMI Normal, No rub noted Abdomen: Bowel Sounds Present, Soft, Non Tender, Non-Distended Extremities: No clubbing, No cyanosis, No edema, Capillary Refill Less than 3 Seconds Skin: No rashes, No breakdown Musculoskeletal: No Tenderness to Palpation of Joints or Extremities Neurological: Cranial nerves II-XII grossly intact, Neuro grossly intact, Sensory exam intact to light touch and pain, Coordination normal Psych/Mental Status: Normal Affect, Appropriate, Alert and oriented to time, place, person, mood and affect Microbiology Past 72 Hours 05/30/20 16:56 Urine, Clean Catch Legionella Antigen - Final 05/30/20 16:56 Urine, Clean Catch Streptococcus pneumoniae Antigen (M - Final 05/30/20 12:00 Mucosa - Nose SARS-CoV-2 Antigen (Rapid) - Final Laboratory Results 05/30/20 11:20: WBC 7.8, RBC 4.44, Hgb 12.9, Hct 41.3, MCV 93.0, MCH 29.1, MCHC 31.2 L, RDW Std Deviation 45.8 H, RDW Coeff of Yaquelin 13.4, Plt Count 378, MPV 10.1, Immature Gran % (Auto) 0.300, Neut % (Auto) 60.3, Lymph % (Auto) 20.1, [place] % (Auto) 9.0, Eos % (Auto) 9.1 H, Baso % (Auto) 1.2 H, Absolute Neuts (auto) 4.7, Absolute Lymphs (auto) 1.56, Nucleated RBC % 0 05/30/20 11:20: Sodium 140, Potassium 4.4, Chloride 107, Carbon Dioxide 27.0, Anion Gap 6, BUN 16, Creatinine 0.80, Estim Creat Clear Calc 46.56, Est GFR (MDRD) Af Amer 90, Est GFR (MDRD) Non-Af 74, BUN/Creatinine Ratio 19.9, Glucose 91, Calcium 8.9, Troponin I < 0.015 05/30/20 11:20: Lactic Acid 0.7 05/30/20 11:20: B-Natriuretic Peptide 28.3 05/30/20 12:42: Specimen Type ART, Sample Site R Radial, pH 7.40, Bicarbonate Actual 27.7 H, Total CO2 29, Base Excess 3 H, O2 Saturation 99, ABG pCO2 45.0, ABG pO2 131 H, O2 Delivery Device Cannula, Liter Flow 4.0 05/31/20 05:00: WBC 9.0, RBC 3.90 L, Hgb 11.3 L, Hct 35.8 L, MCV 91.8, MCH 29.0, MCHC 31.6 L, RDW Std Deviation 45.6 H, RDW Coeff of [place] 13.4, Plt Count 368, MPV 9.9, Immature Gran % (Auto) 0.400, Neut % (Auto) 88.1 H, Lymph % (Auto) 9.6 L, [place] % (Auto) 1.8, Eos % (Auto) 0.0, Baso % (Auto) 0.1, Absolute Neuts (auto) 7.9 H, Absolute Lymphs (auto) 0.86, Nucleated RBC % 0 05/31/20 05:00: Sodium 140, Potassium 4.0, Chloride 107, Carbon Dioxide 28.0, Anion Gap 5, BUN 17, Creatinine 0.65, Estim Creat Clear Calc 37.24, Est GFR (MDRD) Af Amer 115, Est GFR (MDRD) Non-Af 95, BUN/Creatinine Ratio 26.2 H, Glucose 152 H, Calcium 8.5, Magnesium 2.5 05/31/20 05:00: Phosphorus 3.7 Current Medications Acetaminophen (Acetaminophen 325 Mg Tablet) 650 mg PO Q6H PRN PRN PRN Reason: Pain Score 1-10/Temp > 100.7 F Last Admin: 05/31/20 10:29 Dose: 650 mg Documented by: Al Hydroxide/Mg Hydroxide (Mag Hydrox/Al Hydrox/Simeth 30 Ml Udc) 30 ml PO Q6H PRN PRN PRN Reason: Gastric Burning Albuterol Sulfate (Albuterol 2.5 Mg/3 Ml Vial.Neb.) 2.5 mg INHALATION Q2H PRN PRN PRN Reason: SOB/Wheezing Albuterol/Ipratropium (Ipratropium/Albuterol Sulfate 3 Ml Ampul.Neb) 3 ml INHALATION Q4H.RT [facility] Last Admin: 05/31/20 10:57 Dose: 3 ml Documented by: Duloxetine HCl (Duloxetine Hcl 60 Mg Capsule) 60 mg PO BID [facility] Last Admin: 05/31/20 08:39 Dose: 60 mg Documented by: Enoxaparin Sodium (Enoxaparin 40 Mg/0.4 Ml Syringe) 40 mg SC DAILY [facility] Last Admin: 05/31/20 08:38 Dose: 40 mg Documented by: Guaifenesin (Guaifenesin 10 Ml Udc (200mg/10ml)) 20 ml PO Q4H PRN PRN PRN Reason: COUGH Last Admin: 05/31/20 10:28 Dose: 20 ml Documented by: Guaifenesin (Guaifenesin 600 Mg Tablet) 600 mg PO BID [facility] Last Admin: 05/31/20 08:39 Dose: 600 mg Documented by: Levofloxacin (Levofloxacin 750 Mg Tablet) 750 mg PO DAILY [facility] Stop: 06/03/20 10:01 Last Admin: 05/31/20 08:39 Dose: 750 mg Documented by: Melatonin (Melatonin 3 Mg Tablet) 3 mg PO QHS PRN PRN PRN Reason: INSOMNIA Methylprednisolone (Methylprednisolone 40 Mg/Ml Vial) 40 mg IV Q8 [facility] Stop: 05/31/20 22:01 Last Admin: 05/31/20 05:41 Dose: 40 mg Documented by: Ondansetron HCl (Ondansetron 4 Mg/2 Ml Vial) 4 mg IV Q8H PRN PRN PRN Reason: NAUSEA/VOMITING Senna/Docusate Sodium (Senna/Docusate Sodium 1 Tablet) 2 tablet PO BID PRN PRN PRN Reason: Constipation Sodium Chloride (0.9% Saline Lock 10 Ml Syringe) 10 - 40 ml IV UD PRN PRN Reason: SALINE FLUSH Last Admin: 05/31/20 05:41 Dose: 10 ml Documented by: Zolpidem Tartrate (Zolpidem Tartrate 5 Mg Tablet) 5 mg PO QHS PRN PRN PRN Reason: SLEEP Last Admin: 05/30/20 22:06 Dose: 5 mg Documented by: Medical Necessity - Tobacco Use Smoking Status: Former smoker Tobacco Use: Non-smoker Assessment/Plan All Active Problems (Last Reviewed 05/30/20 @ 14:[address] Tanya Dukes DO) Acute respiratory failure with hypoxia (Acute) PND (post-nasal drip) (Acute) Status post right inguinal hernia repair (Resolved) History of colonoscopy (Resolved) History of laparoscopic cholecystectomy (Resolved) COPD exacerbation (Acute) History of tracheostomy (Resolved) Inguinal hernia (Resolved) #1 acute on chronic respiratory failure-I will make the patient a full admission, continue present treatment, respiratory panel is pending at this time. I suspect the patient may have an acute viral infection. #2 exacerbation of chronic obstructive pulmonary disease-continue present treatment #3 obstructive sleep apnea #4 chronic diastolic congestive heart failure #5 bronchiectasis Inpatient E&M: [id number] [facility] Hosp L2
[2020-05-31] MEDS: Zolpidem Tartrate 5 MG Tablet PO (22:14)
[2020-06-01] VITALS (10 sets, daily range): BP systolic 93–145; BP diastolic 58–66; PULSE 88–102; RESP 16–20; TEMP 36.6–37; O2SAT 95–97
[2020-06-01] MEDS: Ipratropium/Albuterol Sulfate 3 ML AMPUL.NEB INHALATION ×2 (06:48→10:37)
[2020-06-01] MEDS: DULoxetine Hcl 60 MG Capsule PO (10:42)
[2020-06-01] MEDS: guaiFENesin 600 MG Tablet PO (10:42)
[2020-06-01] MEDS: Azithromycin 250 MG Tablet 500 MG PO (10:42)
[2020-06-01] MEDS: Enoxaparin 40 MG/0.4 ML Syringe SC (10:43)
--- NOTE | 2020-06-01 11:25 | NURSING ---
1125 pt pox checked on RA sitting 93%, pt walked in room, pox checked after walk-91-92%. will text Dr with pox results Ivette Rizvi RN
--- NOTE | 2020-06-01 11:37 | DCINST_ITS ---
- Discharge Diagnoses Current Active Problems: Current Active and Chronic Problems (Last Reviewed 05/30/20 @ 14:[address] Tanya Dukes, DO) Acute respiratory failure with hypoxia (Acute) Bronchiectasis (Chronic) CT chest from January 11, 2015 personally reviewed and shows evidence of bronchiectasis. Restless legs syndrome (Chronic) Spinal stenosis (Chronic) PND (post-nasal drip) (Acute) Stage 3 severe COPD by GOLD classification (Chronic) EF 70% (Chronic) Muscular deconditioning (Chronic) Chronic diastolic (congestive) heart failure (Chronic) Seasonal allergies (Chronic) Epigastric pain (Chronic) Dyspnea (Chronic) Hypersomnia (Chronic) NOAM (obstructive sleep apnea) (Chronic) 18/12 cm water With 1 LPM oxygen bleed Stage 3 severe COPD by GOLD classification (Chronic) FEV1 46% of predicted Sinus pain (Chronic) Chronic hypoxemic respiratory failure (Chronic) History of sudden cardiac arrest (Chronic 01/11/15) Pulmonary valve insufficiency (Chronic) Acute cor pulmonale (Chronic) Chronic diastolic heart failure (Chronic) COPD exacerbation (Acute) Shortness of breath (Chronic) GERD (gastroesophageal reflux disease) (Chronic) You will use the following diet at home:: No restrictions Your food should be the consistency of: Regular Your liquids should be the consistency of: Regular/Thin Discharge Activity: Return to Normal Activity Weight Bearing Status: Full weight bearing Additional Instructions: Amositsussin DM for cough-2 tsp every 4 hours as needed Allergies/Adverse Reactions: Allergies hydrocodone [From Vicodin] Allergy (Mild, Verified 05/30/20 11:04) Nausea ropinirole Allergy (Verified 05/30/20 11:04) hives azithromycin [From Zithromax] Adverse Reaction (Verified 05/30/20 11:04) Other felt flush/headache/just didnt feel right neck pain Medications to take at Discharge Zolpidem Tartrate [Ambien] 5 mg PO QHS PRN PRN 01/12/15 duloxetine 60 mg capsule,delayed release 60 mg PO BID cap 07/14/17 albuterol sulfate 90 mcg/actuation aerosol inhaler 2 puff INHALATION Q4H PRN PRN #1 inhaler 08/28/19 fluticasone fur. 100 mcg-umeclid 62.5 mcg-vilant 25 mcg inhalat.powder 1 inh INHALATION QDAY #3 ea 08/28/19 ipratropium 0.5 mg-albuterol 3 mg (2.5 mg base)/3 mL nebulization soln 3 ml INHALATION 4X/DAY #180 vial 12/24/19 Cholecalciferol (Vitamin D3) [Vitamin D3] 1,000 unit PO DAILY 05/30/20 Azithromycin [Zithromax] 500 mg PO Q24 #2 tab 06/01/20 predniSONE tablet 40 mg PO DAILY #14 tab 06/01/20 The following prescriptions were given: predniSONE tablet 40 mg PO DAILY #14 tab [id number] Azithromycin [Zithromax] 500 mg PO Q24 #2 tab Transmission [facility] Primary Care Physician: Jose Luis Culver MD [Primary Care Provider] - Please follow up with your Primary Care Physician in: in 7-10 days Test Results: Test results from this visit will be discussed in further detail at your follow- up appointment, if applicable.
--- NOTE | 2020-06-01 12:07 | PCM.DC.SUM ---
Discharge Date and Diagnosis - Problem List Patient Problems: Active and Suspected Problems (Last Reviewed 05/30/20 @ 14:[address] Tanya Dukes DO) Acute respiratory failure with hypoxia (Acute) PND (post-nasal drip) (Acute) COPD exacerbation (Acute) Date of Admission: 05/30/20 Date of Discharge: 06/01/20 - Primary Discharge Diagnosis Acute Problems: Active Problems (Last Reviewed 05/30/20 @ 14:[address] Tanya Dukes DO) #1 acute on chronic respiratory failure #2 exacerbation of chronic obstructive pulmonary disease #3 obstructive sleep apnea #4 chronic diastolic congestive heart failure #5 bronchiectasis - Secondary Discharge Diagnosis Chronic Problems: Chronic Problems (Last Reviewed 05/30/20 @ 14:[address] Tanya Dukes DO) Bronchiectasis (Chronic) CT chest from January 11, 2015 personally reviewed and shows evidence of bronchiectasis. Restless legs syndrome (Chronic) Spinal stenosis (Chronic) Stage 3 severe COPD by GOLD classification (Chronic) EF 70% (Chronic) Muscular deconditioning (Chronic) Chronic diastolic (congestive) heart failure (Chronic) Seasonal allergies (Chronic) Epigastric pain (Chronic) Dyspnea (Chronic) Hypersomnia (Chronic) NOAM (obstructive sleep apnea) (Chronic) 18/12 cm water With 1 LPM oxygen bleed Stage 3 severe COPD by GOLD classification (Chronic) FEV1 46% of predicted Sinus pain (Chronic) Chronic hypoxemic respiratory failure (Chronic) History of sudden cardiac arrest (Chronic 01/11/15) Pulmonary valve insufficiency (Chronic) Acute cor pulmonale (Chronic) Chronic diastolic heart failure (Chronic) Shortness of breath (Chronic) GERD (gastroesophageal reflux disease) (Chronic) Hospital Course and Treatment Operations: None Procedures: None Summary of Care Provided: The patient is a 74 year old F who was seen in the emergency room at [facility] with chief complaint of shortness of breath. Patient wears home O2 at night when sleeping, she recently had a prescription for Levaquin called in-she had been taking that for approximately week prior to coming in the hospital. Patient stated to this examiner that for the past 1 to 2 months he has been short of breath on exertion and had to wear oxygen. Work-up in the emergency room included a chest x-ray which showed no active disease, she was given terbutaline in the emergency room with a DuoNeb aerosol treatment, she remained short of breath and dyspneic at rest. Patient stated she was not comfortable going home and her oxygen in the emergency room was reduced from 4 L to 2 L and her saturations were appropriate. She was admitted to PCU for exacerbation of COPD, she was placed on IV corticosteroids and aggressive aerosol treatments, she was given Zithromax while in the hospital as an additional medication for her treatment and she tolerated this medicine well. On 06/01/2020, patient was seen and examined: On examination she appeared in good health and spirits, she does not appear to be in any distress. Vital signs as documented. Skin warm and dry and without overt rashes. Neck without JVD, thyroid appears normal, trachea is midline, neck is supple. Lungs-scattered expiratory wheezes are noted, normal air movement was noted. Heart exam notable for regular rhythm, normal sounds and absence of murmurs, rubs or gallops. Abdomen unremarkable and without evidence of organomegaly, masses, or abdominal aortic enlargement, bowel sounds are present in all 4 quadrants, no abdominal tenderness was noted. Extremities nonedematous, no cyanosis was noted, no clubbing was noted. Neuro: Cranial nerves II through XII are grossly intact, no focal motor deficits were noted, sensation to light touch and pinprick is intact, motor exam 5/5 throughout. Psych: Patient is alert and oriented x3, she does not appear anxious or depressed, she does not appear agitated. Patient did not require continuous oxygen at the time of discharge either at rest or on ambulation. Her respiratory panel did not indicate she had a viral infection, her Covid antigen test was negative, or Legionella antigen in her urine as well as her Streptococcus antigen in urine was negative. Patient appeared stable for discharge on 06/01/2020. Patient Problems: Active and Suspected Problems (Last Reviewed 05/30/20 @ 14:[address] Tanya Dukes, DO) Acute respiratory failure with hypoxia (Acute) PND (post-nasal drip) (Acute) COPD exacerbation (Acute) - Physical Exam Vitals/I&O's: Vital Signs Temp Pulse Resp BP Pulse Ox 98.6 F 88 20 H 93/58 L 96 06/01/20 08:09 06/01/20 10:37 06/01/20 10:37 06/01/20 08:09 06/01/20 10:00 Oxygen Flow Rate (L/min) 1 Oxygen Delivery Method Nasal Cannula Weight: 61.9 kg Body Mass Index (BMI) 25.7 Finger Stick Blood Glucose 164 Intake and Output for Last 24 Hours 05/30/20 05/31/20 06/01/20 23:59 23:59 23:59 Intake Total 1150 / 1150 600 / 600 300 / 300 Output Total 400 / 400 Balance 750 / 750 600 / 600 300 / 300 Microbiology Past 72 Hours 05/31/20 12:13 Mucosa - Nasopharyngeal Respiratory Panel (PCR) - Final 05/31/20 05:25 Sputum, Expectorated/Coughed Gram Stain - Final 05/30/20 16:56 Urine, Clean Catch Legionella Antigen - Final 05/30/20 16:56 Urine, Clean Catch Streptococcus pneumoniae Antigen (M - Final 05/30/20 12:00 Mucosa - Nose SARS-CoV-2 Antigen (Rapid) - Final Current Medications Acetaminophen (Acetaminophen 325 Mg Tablet) 650 mg PO Q6H PRN PRN PRN Reason: Pain Score 1-10/Temp > 100.7 F Last Admin: 05/31/20 10:29 Dose: 650 mg Documented by: Al Hydroxide/Mg Hydroxide (Mag Hydrox/Al Hydrox/Simeth 30 Ml Udc) 30 ml PO Q6H PRN PRN PRN Reason: Gastric Burning Albuterol Sulfate (Albuterol 2.5 Mg/3 Ml Vial.Neb.) 2.5 mg INHALATION Q2H PRN PRN PRN Reason: SOB/Wheezing Albuterol/Ipratropium (Ipratropium/Albuterol Sulfate 3 Ml Ampul.Neb) 3 ml INHALATION Q4H.RT [facility] Last Admin: 06/01/20 10:37 Dose: 3 ml Documented by: Azithromycin (Azithromycin 250 Mg Tablet) 500 mg PO Q24 [facility] Last Admin: 06/01/20 10:42 Dose: 500 mg Documented by: Duloxetine HCl (Duloxetine Hcl 60 Mg Capsule) 60 mg PO BID [facility] Last Admin: 06/01/20 10:42 Dose: 60 mg Documented by: Enoxaparin Sodium (Enoxaparin 40 Mg/0.4 Ml Syringe) 40 mg SC DAILY [facility] Last Admin: 06/01/20 10:43 Dose: 40 mg Documented by: Guaifenesin (Guaifenesin 10 Ml Udc (200mg/10ml)) 20 ml PO Q4H PRN PRN PRN Reason: COUGH Last Admin: 05/31/20 19:59 Dose: 20 ml Documented by: Guaifenesin (Guaifenesin 600 Mg Tablet) 600 mg PO BID [facility] Last Admin: 06/01/20 10:42 Dose: 600 mg Documented by: Melatonin (Melatonin 3 Mg Tablet) 3 mg PO QHS PRN PRN PRN Reason: INSOMNIA Ondansetron HCl (Ondansetron 4 Mg/2 Ml Vial) 4 mg IV Q8H PRN PRN PRN Reason: NAUSEA/VOMITING Senna/Docusate Sodium (Senna/Docusate Sodium 1 Tablet) 2 tablet PO BID PRN PRN PRN Reason: Constipation Sodium Chloride (0.9% Saline Lock 10 Ml Syringe) 10 - 40 ml IV UD PRN PRN Reason: SALINE FLUSH Last Admin: 05/31/20 22:05 Dose: 10 ml Documented by: Zolpidem Tartrate (Zolpidem Tartrate 5 Mg Tablet) 5 mg PO QHS PRN PRN PRN Reason: SLEEP Last Admin: 05/31/20 22:14 Dose: 5 mg Documented by: Discharge Activity: Return to Normal Activity Weight Bearing Status: Full weight bearing Home Medications: Medications to take at Discharge Zolpidem Tartrate [Ambien] 5 mg PO QHS PRN PRN 01/12/15 duloxetine 60 mg capsule,delayed release 60 mg PO BID cap 07/14/17 albuterol sulfate 90 mcg/actuation aerosol inhaler 2 puff INHALATION Q4H PRN PRN #1 inhaler 08/28/19 fluticasone fur. 100 mcg-umeclid 62.5 mcg-vilant 25 mcg inhalat.powder 1 inh INHALATION QDAY #3 ea 08/28/19 ipratropium 0.5 mg-albuterol 3 mg (2.5 mg base)/3 mL nebulization soln 3 ml INHALATION 4X/DAY #180 vial 12/24/19 Cholecalciferol (Vitamin D3) [Vitamin D3] 1,000 unit PO DAILY 05/30/20 Azithromycin [Zithromax] 500 mg PO Q24 #2 tab 06/01/20 predniSONE tablet 40 mg PO DAILY #14 tab 06/01/20 Following Prescriptions Were Given to Patient: predniSONE tablet 40 mg PO DAILY #14 tab Transmission Status: Received by [facility] Azithromycin [Zithromax] 500 mg PO Q24 #2 tab Transmission Status: Received by [facility] Primary Care Physician: Jose Luis Culver MD [Primary Care Provider] - Please follow up with your Primary Care Physician in: in 7-10 days Disposition: Home Minutes spent on discharge:: 31 Patient Condition:: Stable Medical Necessity - Tobacco Use Smoking Status: Former smoker Tobacco Use: Non-smoker Meaningful Use Info Meaningful Use Diagnoses (Choose all that apply): None applicable Inpatient E&M: 71003 Disch Hosp
[2020-06-01] MEDS: guaiFENesin 10 ML UDC (200MG/10ML) 20 ML PO (12:41)
== END 2020-06-01 13:46 | disposition home or self-care (01) | DRG 190 ==
LOC: ED 13:16 → PCU 14:04
PROVIDERS: Admitting Provider Internal Medicine; Emergency Provider Emergency Medicine; PCP Internal Medicine; Visit Provider Internal Medicine
DX: J44.1 Chronic obstructive pulmonary disease with (acute) exacerbation (principal); J96.21 Acute and chronic respiratory failure with hypoxia; I50.32 Chronic diastolic (congestive) heart failure; G25.81 Restless legs syndrome; M48.05 Spinal stenosis, thoracolumbar region; I37.1 Nonrheumatic pulmonary valve insufficiency; G47.33 Obstructive sleep apnea (adult) (pediatric); K21.9 Gastro-esophageal reflux disease without esophagitis; E55.9 Vitamin D deficiency, unspecified; F32.9 Major depressive disorder, single episode, unspecified; Z87.19 Personal history of other diseases of the digestive system; Z90.49 Acquired absence of other specified parts of digestive tract; Z86.74 Personal history of sudden cardiac arrest; Z79.899 Other long term (current) drug therapy; Z87.891 Personal history of nicotine dependence; Z86.711 Personal history of pulmonary embolism
CPT/HCPCS: 36415; 36600; 71045; 80048; 82803; 83605; 83735; 83880; 84100; 84484; 85025; 87040; 87070; 87205; 87426; 87449; 87633; 93005; 94002; 94003; 94640; 97161; 99251; 99285; J7030; A4216; G0463

== ENCOUNTER → 2020-06-20 17:49 | Outpatient (CLI) | payer MEDICARE, OTHER, SELFPAY ==
[2020-05-30 14:45] VITALS: BMI 25.7
--- NOTE | 2020-06-20 17:50 | CT_ITS ---
STUDY: CT CHEST WITHOUT CONTRAST LUNG CANCER SCREENING REASON FOR EXAM: Female, 74 years old. RADIATION DOSAGE (If Supplied By Facility): CTDIvol = ( 2.01 ) mGy, DLP = ( 72.98 ) mGycm TECHNIQUE: Transaxial imaging was performed without the administration of intravenous contrast material. Individualized dose optimization techniques were used for this CT. COMPARISON: 12 June 2019 FINDINGS: Lungs are moderately emphysematous without focal high risk opacities. There is minor atelectasis/scarring in the periphery. Central airways are patent. Pleural surfaces are intact. Mediastinal contents are suboptimally seen but likely normal. Coronary arteries are at least moderately diseased. Cardiac chambers are normal in size and shape. Aorta and pulmonary artery are normal caliber. Osseous structures are intact. Appearance is stable since prior. CT/Low Dose CT Lung Screening IMPRESSION: 1. Clear lungs. 2. Lung RADS category 1. 3. Moderate emphysema. Electronically Signed: Carisa Booker MD at 20:32 EDT Tel , Service support ,
== END ==
PROVIDERS: PCP Internal Medicine; Referring Provider Nurse Practitioner Acute Care; Visit Provider Nurse Practitioner Acute Care
DX: F17.210 Nicotine dependence, cigarettes, uncomplicated (principal)
CPT/HCPCS: 71271

== ENCOUNTER → 2020-08-01 12:55 | Outpatient (CLI) | payer MEDICARE, OTHER, SELFPAY ==
[2020-07-22 13:12] VITALS: BMI 25.2
--- NOTE | 2020-08-01 12:58 | CT_ITS ---
STUDY: CTA CHEST REASON FOR EXAM: Female, 74 years old. Concern for PE. Shortness of breath. RADIATION DOSAGE (If Supplied By Facility): CTDIvol = ( 10.44 ) mGy, DLP = ( 262.97 ) mGycm TECHNIQUE: The examination was performed with the intravenous administration of IV 100mL [id number]-370. Post-processing of the angiographic images was performed, with multiplanar reformation and 3D reconstruction. Individualized dose optimization techniques were used for this CT. COMPARISON: Comparison is made with prior study dated 06/20/2020. FINDINGS: Normal enhancement of the main pulmonary artery and right and left pulmonary arteries. Normal enhancement of the bilateral peripheral pulmonary arteries. There is no demonstrated pulmonary embolism. There is atherosclerotic calcification of the aortic arch with tortuosity. There is no demonstrated aortic dissection. There are calcifications of the coronary arteries. There are visualized mediastinal lymph nodes, which are within normal size limits, and with normal morphology. Normal hilar regions. Normal visualized trachea and bronchi. The lungs are well expanded. Normal pulmonary parenchyma. Normal pleura. Normal chest wall structures. There are degenerative changes of thoracic spine. Normal visualized upper abdomen. CT/CTA Chest W/WO Contrast IMPRESSION: No evidence of pulmonary embolism. No acute abnormality is seen. Electronically Signed: Peewee Almodovar MD at 15:08 EDT , Service support ,
[2020-08-01 15:15] LABS: EGFR FINGERSTICK > 60.0000 mL/min (>60)
== END ==
PROVIDERS: PCP Internal Medicine; Referring Provider Internal Medicine Critical Care Medicine; Visit Provider Internal Medicine Critical Care Medicine
DX: J96.01 Acute respiratory failure with hypoxia (principal)
CPT/HCPCS: 71275; Q9967

== ENCOUNTER 2020-08-26 09:00 | Day surgery (SDC) | payer MEDICARE, OTHER, SELFPAY ==
[2020-08-13 15:10] VITALS: BMI 25.5
[2020-08-15 11:10] LABS: Absolute Lymphocyte Count 1.54 X10^3/uL (0.83-4.51); Absolute Neutrophil Count 5.1 X10^3/uL (2.0-7.7); Basophil# 0.08 X10^3/uL; Eosinophil# 0.34 X10^3/uL; Eosinophils% 4.4 % (0-5); Lymphocyte # 1.54 X10^3/ul (0.83-4.51); Lymphocyte % 20.1 % (19-41); Mean Corpuscular Hgb 27.9 pg (27.0-32.0); Mean Corpuscular Volume 90.1 fL (81-99); Mean Platelet Vol. 10.5 fl (6.2-12.0); Monocyte# 0.62 X10^3/uL; Monocyte% 8.1 % (0-10); NRBC Flagged by Analyzer 0 % (0-5); Neutrophil # 5.06 X10^3/uL (2.7-7.7); Neutrophil % 65.9 % (47-70); Platelet Count 360 K/mm3 (150-450); RBC Distribution Width CV 13.8 % (11.6-14.6); RBC Distribution Width SD 45.5 fl (35.1-43.9); Red Blood Count 4.66 M/mm3 (4.2-5.4); White Blood Count 7.7 K/mm3 (4.4-11.0)
[2020-08-15 11:18] LABS: Prothrombin Time (Protime)PT. 12.3 SECONDS (11.7-14.9)
[2020-08-15 11:38] LABS: AST(SGOT) 19 U/L (15-37); Alanine Aminotransfer ALT/SGPT 23 U/L (13-56); Albumin, Serum 3.3 g/dL (3.2-5.0); Alkaline Phosphatase 79 U/L (45-117); Anion Gap 6 (5-15); BUN 15 mg/dL (7-18); BUN/Creat Ratio 23.5 RATIO (10-20); Bilirubin, Direct 0.09 mg/dL (0.00-0.30); Calcium,Total 8.7 mg/dL (8.5-10.1); Chloride 105 mmol/L (98-107); Cholesterol 209 mg/dL (200); Creatinine, Serum 0.64 mg/dL (0.55-1.02); EST Glomerular Filtration Rate 96 mL/min (>60); Est Glom Filt Rate - Afr Amer 117 mL/min (>60); Globulin 3.5 g/dL (2.2-4.2); Glucose 98 mg/dL (74-106); High Density Lipoprotein 55 mg/dL; Protein, Total 6.8 g/dL (6.4-8.2); Sodium Level 140 mmol/L (136-145); Triglycerides 119 mg/dL; Very Low Density Lipoprotein 24 mg/dL (5-40)
[2020-08-25 10:20] VITALS: BMI 25.4
--- NOTE | 2020-08-25 11:36 | HP.PCM_ITS ---
History and Physical Date of Admission: 08/26/20 [facility] [address] [place] [address] OFFICE VISIT Date of Service:? 08/13/20 MR#: [id number] Acct: [id number] Name:ANGELIA GUERRA Rep #: [id number] : 1945 Provider: Dr. Mitul Kumar MD Age/Sex:? 74/F Location: [facility] Status: Signed HPI HPI History of Present Illness Surgical H&P: Yes Details: This is a 74-year-old white female who is referred for further evaluation of shortness of breath/dyspnea on exertion superimposed upon findings of underlying coronary artery calcification and significant underlying COPD with associated respiratory failure with a remote history of a arrest which was thought to be related to an underlying pulmonary condition.? She notes that, over the last few months, she has been progressively short of breath and dyspneic especially with exertion which has become more so even with minimal exertion such as walking from the parking lot into the hospital complex.? She has been placed on oxygen therapy by her archives director. She states sometimes she feels with her shortness of breath and dyspnea that there is an uncomfortable sensation or heaviness or tightness in her chest.? She denies classic orthopnea or PND or peripheral pitting edema.? There has been no near syncope or syncope. She states she has been undergoing evaluation by her archives director.? Despite the report saying that she has severe COPD and chronic hypoxic respiratory failure that they reportedly did not believe her symptoms are coming from her underlying pulmonary disease process. She has undergone pulmonary evaluation.? She is undergone cardiovascular evaluation in the past.? She has had ECGs performed.? She most recently had a transthoracic echocardiogram performed on 01-11-2020.? The results are noted below.? It appears she had a pharmacologic stress nuclear imaging study p erformed at [facility] in [place], [place], on 08-12-2014.? At that time her study was considered negative for any evidence of inducible myocardial ischemia and her gated LVEF was reported at 71%. She also had a previous exercise tolerance test/imaging study performed at that same hospital on 09-03-2008.? At that time she had a negative myocardial perfusion study with a gated LVEF reported at 81%. Today in the office she had an ECG performed.? She was noted to be in sinus rhythm with low voltage QRS in the limb leads and poor R wave progression. She had a chest CT scan performed recently.? There were comments of coronary artery calcification as well as no obvious thromboembolic disease process. She is wearing O2 nasal cannula in the offic Intake Vital Signs ? 08/13/2114:10 Height 5 ft 1 in Weight: 135 lb 6 oz BMI 25.5 BP 108/60 Blood Pressure Location Lt brachial Position Sitting Respiration 20 H Pulse 88 Pulse Source Auscultation Intake Visit Reasons:?CHF/KEITA/Ref. Keyonna Lam [employer]rote[employer]er Required: No Accompanied by: Self Allergies hydrocodone [From Vicodin] Allergy (Mild, Verified 08/13/20 15:14) Nausearopinirole Allergy (Verified 08/13/20 15:14) hivesazithromycin [From Zithromax] Adverse Reaction (Verified 08/13/20 15:14) Other Medications zolpidem 5 mg PO QHS PRN PRN 01/12/15 [History Confirmed 08/13/20] duloxetine 60 mg capsule,delayed release 60 mg PO BID? cap 07/14/17 [History Confirmed 08/13/20] albuterol sulfate 90 mcg/actuation aerosol inhaler 2 puff INHALATION Q4H PRN PRN #1 inhaler 08/28/19 [Rx Confirmed 08/13/20] fluticasone fur. 100 mcg-umeclid 62.5 mcg-vilant 25 mcg inhalat.powder 1 inh INHALATION QDAY #3 ea 08/28/19 [Rx Confirmed 08/13/20] ipratropium 0.5 mg-albuterol 3 mg (2.5 mg base)/3 mL nebulization soln 3 ml INHALATION 4X/DAY #180 vial 12/24/19 [Rx Confirmed 08/13/20] albuterol sulfate 90 mcg/actuation aerosol inhaler 2 inh INHALATION Q6H PRN? g 08/13/20 [History Confirmed 08/13/20] aspirin 81 mg tablet,delayed release 81 mg PO DAILY #1 tab 08/13/20 [Rx Confirmed 08/13/20] cholecalciferol (vitamin D3) 50 mcg (2,000 unit) tablet 50 mcg PO DAILY 08/13/20 [History Confirmed 08/13/20] famotidine 20 mg tablet 20 mg PO DAILY PRN 08/13/20 [History Confirmed 08/13/20] loratadine 10 mg tablet 10 mg PO DAILY 08/13/20 [History Confirmed 08/13/20] vit C,E,zinc,copper-nyctw9k 250 mg-lutein 5 mg-zeaxanthin 1 mg capsule 1 cap PO QAM 08/13/20 [History Confirmed 08/13/20] PFSH Medical History?(Updated 08/13/20 @ 16:[address] Mitul Kumar MD) Acute cor pulmonale Chronic diastolic (congestive) heart failure Chronic diastolic heart failure Chronic hypoxemic respiratory failure COPD exacerbation Coronary artery calcification Coronary artery calcification Dyspnea EF 70% Epigastric pain GERD (gastroesophageal reflux disease) History of sudden cardiac arrest (01/11/15) Hypersomnia Muscular deconditioning NOAM (obstructive sleep apnea) Pulmonary valve insufficiency Seasonal allergies Shortness of breath Sinus pain Stage 3 severe COPD by GOLD classification Stage 3 severe COPD by GOLD classification Surgical History? History of colonoscopy History of laparoscopic cholecystectomy History of tracheostomy Status post right inguinal hernia repair Family History? Father Lung disease AsthmaBrother Asthma Heart diseaseMother ArthritisSister Lung CancerBrother CAD (coronary artery disease) Cardiac pacemaker in situ Social History? Smoking Status:? Former smoker quit date: 06/18/04 pack-years: 40? Tobacco: How many years used:? 40? Electronic Cigarette Use:? not used? second hand exposure:? No? quit status:? quit date established? counseling given:? provider counseling? alcohol intake:? never? substance use type:? does not use? caffeine:? Yes (3/day)? what type of physical activity do you participate in:? none? ROS Const Const: Positive for fatigue;? Negative for weakness, body ache, fever(s), headache(s), chills, frequent falls, night sweats, daytime sleepiness, difficulty sleeping, excessive sweating, weight gain, weight loss, increased appetite, poor appetite, anorexia or other Eyes Eyes: Negative for transient loss of vision, blurry vision or change in vision ENT ENT: Positive for dizziness (occasional; random) and balance problems (slight);? Negative for headache(s) Cardio Chest Pain: Yes Character: other (pressure) Onset: at rest and exercise Location: mid sternal and other (across) Duration: brief Relieving: rest Palpitations: No Edema: None Muscle aches with walking: None Resp Respiratory: Positive for SOB with activity (minimal exertion; oxygen @2LNC ), Cough, wheezing (occasional) and other (Wears BIPAP with 1 L NC);? Negative for SOB at rest GI GI: Negative vomiting or vomiting blood/hematemesis : Negative for hematuria Musc Musc: Positive for joint pain (HX arthritis) and balance problems (slight);? Negative for muscle aches/ myalgia or muscle weakness Skin Skin: Negative non-healing lesions or rash Neuro Neuro: Positive for dizziness (occasional; random);? Negative for lightheadedness, orthostatic symptoms, frequent falls, headache(s), weakness or blurry vision Jose Hematologic/Lymphatic: Negative for easy bleeding Endo Endo: Positive for fatigue;? Negative for excessive sweating Psych Psych: Negative for anxiety or depression Allergy Allergy/Immunology: Negative for hives and Negative for rash Cardiology Exam Const Appearance: cooperative, healthy appearing, comfortable, no acute distress, well developed, well groomed and other (Wearing O2 nasal cannula) Nutritional Appearance: average body habitus Orientation: alert, awake and oriented x3 Head Head: normal to inspection, normocephalic and atraumatic Ears: hearing grossly normal bilaterally Nose: external nose normal Face and Sinus: face symmetric Eyes Eyelids: eyelids normal Pupils: PERRL EOM: EOM intact bilaterally Neck Neck: normal visual inspection and full ROM Carotids: normal carotid upstroke Chest Chest inspection: normal inspection of the chest Auscultation: Bilateral: Diminished Lung Sounds Cardio Palpation: normal PMI Rate: regular rate Rhythm: regular rhythm Heart sounds: S1 normal and S2 normal GI GI: normal to inspection, soft and bowel sounds present Neuro General: patient alert, patient awake, patient oriented x3, gait normal and moves all extremities Skin Skin: no rashes or lesions noted Extremities Pulses: Normal: Right Radial Pulse and Left Radial Pulse Lower Extremity Edema: None: Bilateral Psych Psychological: normal affect Assessment and Plan Assessment and Plan (1) Dyspnea on minimal exertion:?Status:?Acute ? ? ? Orders:?Orders: ? 12 Lead EKG performed by [facility] Today ? ? ? Left & Right Heart Cath Today ? ? ? Basic Metabolic Profile (BMP) Today ? ? ? Lipid Profile Today ? ? ? Liver Profile Today ? ? ? Partial Thromboplast Time Today ? ? ? Prothrombin Time w/INR Today ? ? ? CBC W/Diff, Automated Today ?Plan - Dr. Mitul Kumar MD:? Her main concern is shortness of breath and dyspnea especially with any activity. The etiology does raise concerns of being related to her pulmonary disease process.? However the same time there have been concerns related that she may have a nonpulmonary and possible cardiac contribution to this. From a cardiac standpoint there can be concerns of coronary artery disease that would lead to shortness of breath and dyspnea on exertion. She has not been found to have diminished LV systolic function. There is been comments about diminished diastolic function but not on her recent transthoracic echocardiogram. She is not been found to have hemodynamically significant valvular heart disease to explain her symptoms. There is been no comment in the past about any obvious pericardial disease contributing to this. Also there is been no comment in the past of any obvious intracardiac shunting phenomena noted by her noninvasive studies to explain this. From a cardiac standpoint with respect to proceeding further, as she is progressively symptomatic and has undergone noninvasive studies, it may be reasonable to proceed with a more definitive evaluation with a diagnostic ca rdiac catheterization to evaluate for underlying CAD as well as any significant hemodynamic changes and/or oxygen saturation changes that would explain her symptoms. If a cardiovascular evaluation is unremarkable then she would need to return to pulmonology for ongoing evaluation and care. (2) Coronary artery calcification:?Status:?Acute ? ? ? Orders:?Orders: ? Left & Right Heart Cath Today ? ? ? Basic Metabolic Profile (BMP) Today ? ? ? Lipid Profile Today ? ? ? Liver Profile Today ? ? ? Partial Thromboplast Time Today ? ? ? Prothrombin Time w/INR Today ? ? ? CBC W/Diff, Automated Today ?Plan - Dr. Mitul Kumar MD:? Her recent scan suggested coronary artery calcification.? This does increase her risk of having angiographically significant appearing coronary artery disease. Thus in conjunction with her symptoms is reasonable for her to undergo further evaluation care as described above. (3) Chronic diastolic heart failure:?Status:?Chronic ? ? ? Orders:?Orders: ? 12 Lead EKG performed by [facility] Today ? ? ? Left & Right Heart Cath Today ? ? ? Basic Metabolic Profile (BMP) Today ? ? ? Lipid Profile Today ? ? ? Liver Profile Today ? ? ? Partial Thromboplast Time Today ? ? ? Prothrombin Time w/INR Today ? ? ? CBC W/Diff, Automated Today ?Plan - Dr. Mitul Kumar MD:? She states she has been diagnosed with CHF in the past. Based upon her most recent study there was no comment on diminished LV systolic function or diminished diastolic function. At the moment she does not appear to be in any acute CHF findings/events. (4) History of sudden cardiac arrest:?Status:?Chronic ? ? ? Orders:?Orders: ? Left & Right Heart Cath Today ? ? ? Basic Metabolic Profile (BMP) Today ? ? ? Lipid Profile Today ? ? ? Liver Profile Today ? ? ? Partial Thromboplast Time Today ? ? ? Prothrombin Time w/INR Today ? ? ? CBC W/Diff, Automated Today ?Plan - Dr. Mitul Kumar MD:? She states she had a history of a arrest in the past.? This was thought to be oxygen/respiratory related.? She states she did not have to go through any invasive cardiovascular evaluation or care at that time. (5) Chronic hypoxemic respiratory failure:?Status:?Chronic ? ? ? Orders:?Orders: ? Left & Right Heart Cath Today ? ? ? Basic Metabolic Profile (BMP) Today ? ? ? Lipid Profile Today ? ? ? Liver Profile Today ? ? ? Partial Thromboplast Time Today ? ? ? Prothrombin Time w/INR Today ? ? ? CBC W/Diff, Automated Today ?Plan - Dr. Mitul Kumar MD:? She does have underlying COPD and chronic hypoxic respiratory failure. She is wearing O2 nasal cannula at this time. Plan Details Other Medications: ?New: ? aspirin 81 mg? PO DAILY 1 TAB 0RF ? ? Other Orders: ?Orders: ? Lipid Profile Today E78.00 ? ? Liver Profile Today E78.00 ? Additional Comments: The above was discussed with her and she was agreeable to this approach. Thank you for allowing me to participate in the care of your patient.? Please don't hesitate to call if any issues arise.? This note was generated using a voice recognition system and there may be incorrect words, spelling or punctuation that were not noted when reviewing the office note prior to saving. Follow Up: ? ? 3 Months?(PFM) COVID (Procedure Consent) Procedure Criteria Procedure Criteria: Yes Elective?The surgeon/proceduralist and patient have discussed in detail the risk of exposure to and/or potential harm posed by the COVID-19 virus with having a surgery/procedure at this time versus the risk of? delaying the surgery/procedure. It is not possible to know either the risk of delaying the surgery or procedure or chance of getting an infection with perfect accuracy, but a joint decision was made between the patient and the surgeon/proceduralist ?to proceed at this time with the scheduled surgery/procedure as indicated on the consent form. Coding Level of Care Code Off vis,new,level 5 Diagnoses Dyspnea on minimal exertion? R06.00 Coronary artery calcification? I25.10; I25.84 Chronic diastolic heart failure? I50.32 History of sudden cardiac arrest? Z86.74 Chronic hypoxemic respiratory failure? J96.11 Coding Level of Care Code Off vis,new,level 5 Diagnoses Dyspnea on minimal exertion? R06.00 Coronary artery calcification? I25.10; I25.84 Chronic diastolic heart failure? I50.32 History of sudden cardiac arrest? Z86.74 Chronic hypoxemic respiratory failure? J96.11 Supplemental Info Supplemental Information Transthoracic echocardiogram: 06/03/2014 Interpretation Summary Normal LV size. Left ventricular systolic function is hyperdynamic. The estimated ejection fraction is 70 %. Transmitral and pulmonary venous doppler flow suggestive of impaired relaxation of left ventricle Mild (1+) tricuspid valve insufficiency. Pulmonary artery systolic pressure is 32 mmHg. Transthoracic echocardiogram: 01/11/2020 Interpretation Summary The estimated ejection fraction is 65 %. No evidence for diastolic dysfunction. Chest CTA: 08/01/2020 FINDINGS: Normal enhancement of the main pulmonary artery and right and left pulmonary arteries.? Normal enhancement of the bilateral peripheral pulmonary arteries.? There is no demonstrated pulmonary embolism. There is atherosclerotic calcification of the aortic arch with tortuosity. There is no demonstrated aortic dissection. There are calcifications of the coronary arteries. There are visualized? mediastinal lymph nodes, which are within normal size limits, and with normal morphology.? Normal hilar regions. Normal visualized trachea and bronchi.? The lungs are well expanded. Normal pulmonary parenchyma. Normal pleura. Normal chest wall structures. There are degenerative changes of thoracic spine. Normal visualized upper abdomen. CT/CTA Chest W/WO Contrast IMPRESSION: No evidence of pulmonary embolism.? No acute abnormality is seen. ? Electronically Signed: Peewee Almodovar MD at 15:08 EDT Labs:? LDL Cholesterol 95 mg/dL (0-130) ?? ? HDL Cholesterol 65 mg/dL (40-) ?? ? Triglycerides 192 mg/dL (-199) ?? ? VLDL Cholesterol 38 mg/dL (5-40) Diagnostics:? Electrocardiogram ? Echocardiogram ? Chest X-Ray ? Pulmonary:? Pulmonary Function Test ? Pulmonary Exercise Test ? 08/13/20 9087 <Electronically signed by Mitul Kumar MD> Date Mitul Kumar MD Cosigner Signature: Date (if applicable) Addendum: 08/26/2020 I have re-examined the patient. There are no clinical changes since the date of exam. ?
[2020-08-26 10:16] LABS: Blood Gas Specimen Type VEN; VBG BASE EXCESS 2 mmol/L (-1.0-3.5); VBG Bicarbonate 28 mmol/L (22-26); VBG PO2 48 mmHg (25-40); VBG SO2 80 % (50-70); VBG TCO2 30 mmol/L (23-33); VBG pCO2 51.3 mmHg (41-51); VBG pH 7.35 (7.32-7.42)
[2020-08-26 10:16] LABS: Blood Gas Specimen Type VEN; VBG BASE EXCESS 3 mmol/L (-1.0-3.5); VBG Bicarbonate 29 mmol/L (22-26); VBG PO2 43 mmHg (25-40); VBG SO2 74 % (50-70); VBG TCO2 31 mmol/L (23-33); VBG pH 7.33 (7.32-7.42)
[2020-08-26 10:21] LABS: Blood Gas Specimen Type VEN; VBG BASE EXCESS 4 mmol/L (-1.0-3.5); VBG Bicarbonate 30 mmol/L (22-26); VBG PO2 42 mmHg (25-40); VBG SO2 72 % (50-70); VBG TCO2 31 mmol/L (23-33); VBG pCO2 57.3 mmHg (41-51); VBG pH 7.32 (7.32-7.42)
[2020-08-26 10:26] LABS: Base Excess 2 mmol/L (-2 to +2); Bicarbonate 27.3 mmol/L (22-26); Blood Gas Specimen Type ART; PO2 141 mmHG (75-100); SO2 99 % (95-99); Total Carbon Dioxide 29 mmol/L; pCO2 50.1 mmHg (35-45); pH 7.34 (7.35-7.45)
--- NOTE | 2020-08-26 11:18 | CL.D_ITS ---
Patient Name: ANGELIA SIMS Study Date: 08/26/2020 Performing: Mitul Kumar MD Ht: 61.02 inches 155 cm : 1945 Wt: 134.48 lbs 61 kg Age: 74 Gender: female BSA: 1.6 PROCEDURE(S) PERFORMED AI01-ODH/LHC/COR/LV CLINICAL PROFILE AND INDICATIONS Indications: Suspected CAD Heart Failure: NYHA Class: 3, Newly Diagnosed: No, Heart Failure Type: Diastolic Stress/Imaging Stress/Image Study Performed: No Angina Classification Anginal Classification w/in 2 Weeks: Anginal Equivalent Dyspnea CAD Presentations: Other: dyspnea on exertion CONCLUSIONS Right heart pressures - mildly elevated RVSP and PASP The patient has pulmonary hypertension which is mild. Intracardiac shunting: None Elevated Left Ventricular End Diastolic Pressure Normal LV size, wall motion,and systolic function LVEF: by LV gram 65 % Single vessel CAD of the RCA: mild luminal irregularities RECOMMENDATIONS Risk factor modification Medical therapy DESCRIPTION OF PROCEDURE The patient arrived to the procedure lab. The risks and benefits of the procedure as well as a full d escription of our services here and current unavailability of surgical backup were fully explained to the patient and/or their significant other prior to the catheterization. The Timeout was completed, verifying the correct patient and procedure. The patient's procedural site was prepped and draped in the usual fashion. Local anesthetic was given subcutaneously to right groin region with Lidocaine 2%. Using a modified Seldinger technique, arterial access was obtained via the right femoral artery, a 7 Fr sheath was inserted. Venous access was obtained via the right femoral vein, a 7Fr sheath was inser yenny. A 7Fr thermal dilution catheter was inserted and right heart pressures were recorded, it was the n advanced to PA position for cardiac outputs. Thermal dilution cardiac outputs were then recorded. O 2 saturations were then obtained. Left Ventriculography was performed in LOPEZ projection using a 4 Fr. Pigtail catheter. Simultaneous pressures were then recorded. The Thermal dilution gunjan ter was then removed. LV to AO pullback pressures were then recorded. Left Coronary Artery selective angiography was performed in multiple views using a 4 Fr. JL5 catheter. Right Coronary Artery selecti ve angiography was then performed in multiple views using a 4 Fr. 3DRC catheter.The arterial sheath w as pulled and a Perclose closure device was deployed for hemostasis. The venous sheath was then pulle d and manual compression applied until hemostasis achieved CORONARY ANGIOGRAPHY DOMINANCE: Right Dominant LEFT HEART ASSESSMENT Left Ventricular Ejection Fraction: by LV Gram 65 % Normal LV wall motion Elevated Left Ventricular End Diastolic Pressure LVEDP: 17 mmHg RIGHT HEART ASSESSMENT Thermal CO: 4.4 Thermal CI: 2.75 Vadim CO: 6.34 Vadim CI: 3.96 PW: 19/02 10 PA: 33/5 19 RV: 34/2 8 RA: 11/08 6 PVR: 164 SVR: 1673 Right Heart pressures - elevated (mild elevation of the RVSP and PASP) Pulmonary Hypertension Mild Intracardiac shunting: None LEFT MAIN: Angiographically normal LEFT ANTERIOR DESCENDING ARTERY: Angiographically normal CIRCUMFLEX ARTERY: Angiographically normal RIGHT CORONARY ARTERY: Mild calcification Mild luminal irregularities MID RCA: Mild calcification AORTIC ROOT: Angiographically normal COMPLICATIONS No Complications PROCEDURE MEDICATIONS Versed 1 mg IV Oxygen: 2 L/min via nasal cannula SUMMARY OF HEMODYNAMIC DATA Time AIR REST ECG 09:16:37 RA 11/08 (6) SV 10:12:20 RV 34/2, 8 10:12:47 PA 33/5 (19) PA 10:13:47 PW 19/02 (10) PV 10:14:51 LV 143/-7, 17 10:21:10 LV 134/-7, 17 10:21:30 LV 131/-8, 17 10:22:07 PW 11/11 (9) 10:22:07 LV 134/-7, 20 10:23:39 PW / (11) 10:23:39 LV 137/-9, 21 10:24:14 PA 38/6 (24) 10:24:14 LV 136/-8, 20 10:24:52 RV 34/2, 11 10:24:52 LV 137/-8, 19 10:25:16 RA 10 (7) 10:25:16 LV 132/-9, 19 10:25:50 LVp 131/-7, 17 10:25:55 AOp 139/72 (99) 10:26:00 AO 139/69 (98) SA 10:26:03 RM AIR REST 11:06:15 Type SV CO (l/m) CI (l/m/ HR Time AIR REST Thermal 59.50 4.40 2.75 74 09:16:37 Vadim 85.70 6.34 3.96 74 09:16:37 Label % O2 Pres/Loc Time AIR REST AO 99 PV 10:34:17 IVC 80 SV 10:34:33 SVC 74 10:34:41 PA 72 PA 10:35:24 Signed By Mitul Kumar MD On 08/26/2020 11:17:20 Mitul Kumar MD
== END 2020-08-26 15:07 | disposition home or self-care (01) ==
LOC: CLSP 09:00
PROVIDERS: PCP Internal Medicine; Referring Provider Internal Medicine Cardiovascular Disease; Visit Provider Internal Medicine Cardiovascular Disease
DX: I25.10 Atherosclerotic heart disease of native coronary artery without angina pectoris (principal); I27.20 Pulmonary hypertension, unspecified; I25.84 Coronary atherosclerosis due to calcified coronary lesion; J44.9 Chronic obstructive pulmonary disease, unspecified; J96.11 Chronic respiratory failure with hypoxia; I11.0 Hypertensive heart disease with heart failure; I50.32 Chronic diastolic (congestive) heart failure; K21.9 Gastro-esophageal reflux disease without esophagitis; G47.33 Obstructive sleep apnea (adult) (pediatric); Z86.711 Personal history of pulmonary embolism; Z86.74 Personal history of sudden cardiac arrest; Z79.82 Long term (current) use of aspirin; Z79.899 Other long term (current) drug therapy; Z87.891 Personal history of nicotine dependence
CPT/HCPCS: 36415; 80048; 80061; 80076; 82803; 85025; 85610; 85730; 93460; 99152; 99153; J7040; Q9967; C1751; C1760; C1769; C1894

== ENCOUNTER 2021-06-03 12:40 | Outpatient (CLI) | payer MEDICARE, OTHER, SELFPAY ==
--- NOTE | 2021-06-03 12:45 | CT_ITS ---
STUDY: LOW DOSE CT LUNG CANCER SCREENING REASON FOR EXAM: Female, 75 years old. and gt; 20 pack year smoking history RADIATION DOSAGE (If Supplied By Facility): CTDIvol = ( 3.02 ) mGy, DLP = ( 96.66 ) mGycm TECHNIQUE: No contrast was administered. Low dose technique was utilized (average mAS-38 and kVp 120). 1.25 mm axial source images with a slice interval of 1.25-mm were reconstructed in lung windows. 2.5 mm axial source images with a slice interval of 2.5-mm were reconstructed in lung windows. 5.0 mm axial source images with a slice interval of 5.0-mm were reconstructed in soft tissue windows. Nodule measured using lung windows on PACS and/or independent workstation with automated measurement of minimum and maximum diameter. Nodule measurement reported as average diameter rounded to the nearest whole number. Growth is defined as an increase ins size of greater than 1.5 mm. COMPARISON: Comparison is made with prior study dated 06/20/2020 and 06/12/2019.. NODULES: No suspicious nodules are seen. Emphysema: Mild degree of emphysematous changes. Endobronchial lesion: None Aorta: Atherosclerotic calcific plaque formation. Coronary arteries: Coronary arteries calcification. Heart: Unremarkable Pulmonary artery: Unremarkable Mediastinal nodes: Small benign-appearing mediastinal lymph nodes. Other chest and abdominal findings: CT/Low Dose CT Lung Screening IMPRESSION: Lung-RADS category 2 - Continue annual screening with LDCT in 12 months. IMPORTANT NOTES FOR USE: ACR Lung-RADS Version 1.1 Assessment Categories Release Date: 2018 Category: Coded 0-4 bases on nodule(s) with highest degree of suspicion. Negative screen is defined as categories 1 and 2; a positive screen is defined as categories 3 and 4. Category 3 and 4A nodules that are unchanged on interval CT should be coded as category 2, and individuals returned to screening in 12 months. Category 4X: Category 3 or 4 nodules with additional imaging findings that increase the suspicion of lung cancer, such as spiculation, GGN that doubles in size in 1 year, enlarged lymph notes, etc. Category Modifiers: S (significant finding unrelated to lung cancer) Electronically Signed: Peewee Almodovar MD at 13:35 EST ,
== END 2021-06-03 23:59 | disposition home or self-care (01) ==
LOC: CT 12:45
PROVIDERS: PCP Internal Medicine; Referring Provider Nurse Practitioner Acute Care; Visit Provider Nurse Practitioner Acute Care
DX: F17.210 Nicotine dependence, cigarettes, uncomplicated (principal)
CPT/HCPCS: 71271

== ENCOUNTER 2021-07-22 10:38 | Outpatient (CLI) | payer MEDICARE, OTHER, SELFPAY ==
--- NOTE | 2021-07-22 10:41 | BI_ITS ---
MAMMOGRAPHY - BILATERAL SCREENING 3-D TOMOSYNTHESIS REASON FOR EXAM: Female, 75 years old. SCREENING PERTINENT HISTORY: No significant family history. TECHNIQUE: 2-D mammograms and 3-D Tomosynthesis of the breast (s) were performed. CAD was performed. COMPARISON: 12/25/2019 FINDINGS: The breast composition is composed of scattered fibroglandular density. Scattered benign calcifications are seen. No dense spiculated masses or suspicious microcalcifications are identified. No architectural distortion is identified. There is no skin thickening or retraction. There has been no significant change since the prior study. BI/SCRN MAMM (CAD)W/MALIK BILAT IMPRESSION: No mammographic signs of malignancy. Routine yearly mammograms recommended. ASSESSMENT CATEGORY: BIRADS Category 1: Negative. A letter regarding these results will be sent to the patient by the facility within 30 days. FOLLOW UP RECOMMENDATION: Yearly follow up mammogram recommended. (A) Approximately 10% of breast cancers are not detected by mammography. A normal mammogram should not delay biopsy of a clinically suspicious abnormality. Electronically Signed: David Palomino MD at 14:14 EDT ,
--- NOTE | 2021-07-22 10:56 | BD_ITS ---
STUDY: DUAL ENERGY X-RAY ABSORPTIOMETRY / DXA REASON FOR EXAM: Female, 75 years old. M85.89 TECHNIQUE: Bone Mineral Density (BMD) measurements of lumbar spine and bilateral hips were obtained. COMPARISON: Comparison is made with prior examination of 01/30/2019. FINDINGS: Lumbar Spine (L1-L4): g/cm2 (0.870) / T-score (-1.0) / Z-score (1.3) Findings are suggestive of normal bone density with a low fracture risk. Left Femur Total: g/cm2 (0.750) / T-score (-1.6) / Z-score (0.2) Left Femoral Neck: g/cm2 (0.610) / T-score (-2.1) / Z-score (0.0) Right Femur Total: g/cm2 (0.709) / T-score (-1.9) / Z-score (-0.1) Right Femoral Neck: g/cm2 (0.534) / T-score (-2.8) / Z-score (-0.7) The T-Scores on the most recent prior examination were: Lumbar Spine (L1-L4): There has been improvement of bone density since the previous examination. Left Femur Total: which represents a worsening of 2.8%. Right Femur Total: which represents an improvement of 1.4%. BD/Dexa Bone Density Study IMPRESSION: The patient is considered osteoporotic as outlined below according to World [employer] Organization (WHO) criteria with a high fracture risk. There has been improvement of bone density since the previous examination. Reference Information: The T-score is the number of standard deviations above or below the standard which is normal for young adults at their peak bone mineral density. The World Health Organization (WHO) interprets the T-scores as follows: Above -1 Normal bone density Between -1 and -2.5 Osteopenia Equal to / or below -2.5 Osteoporosis As a practical clinical guideline, osteopenia may be graded as follows: Mild -1 through -1.5 Moderate -1.6 through -2.0 Severe -2.1 through -2.4 The Z-score is the number of standard deviations above or below age-matched controls. A Z-score of less than -1.5 would be considered abnormal. References: 1. NIH Osteoporosis and Related Bone Diseases www osteo.org 2. International Society for Clinical Densitometry www iscd.org 3. National Osteoporosis Foundation www nof.org Electronically Signed: Peewee Almodovar MD at 15:26 EDT ,
--- NOTE | 2021-07-23 13:29 | PFT ---
INTRODUCTION: The patient is a 75-year-old female that presents for pulmonary function studies secondary to a diagnosis of COPD. Respiratory therapy reported good patient effort. Bronchodilators were used during testing. INTERPRETATION: Forced expiration spirometry demonstrates the presence of a moderately severe large airways obstructive ventilatory defect. There was a significant response to aerosolized bronchodilators noted. Spirograms are of good quality but do not plateau indicating slow emptying of the lungs. Body plethysmography was performed and revealed an elevated TLC and RV, indicative of underlying hyperinflation and air trapping. Diffusing capacity by single breath CO was reduced at 51% of predicted. IMPRESSION: Partially reversible moderately severe large airways obstructive ventilatory defect with associated hyperinflation, air trapping and symmetric reduction in diffusing capacity.
== END 2021-07-22 23:59 | disposition home or self-care (01) ==
PROVIDERS: PCP Internal Medicine; Visit Provider Nurse Practitioner Acute Care
DX: Z12.31 Encounter for screening mammogram for malignant neoplasm of breast (principal); J44.9 Chronic obstructive pulmonary disease, unspecified; M85.89 Other specified disorders of bone density and structure, multiple sites
CPT/HCPCS: 77063; 77067; 77080; 94060; 94726; 94729

== ENCOUNTER 2022-04-15 12:23 | Inpatient (IN) | payer MEDICARE, OTHER, SELFPAY ==
[2022-04-15] VITALS (13 sets, daily range): BP systolic 105–138; BP diastolic 52–70; PULSE 83–98; RESP 18–30; TEMP 35.7–36.9; O2SAT 86–100; BMI 27.3; BMI 27.4
--- NOTE | 2022-04-15 12:55 | EKG12_ITS ---
Test Reason : SOB Blood Pressure : / mmHG Vent. Rate : 084 BPM Atrial Rate : 084 BPM P-R Int : 146 ms QRS Dur : 074 ms QT Int : 358 ms P-R-T Axes : 052 026 037 degrees QTc Int : 423 ms Normal sinus rhythm Normal ECG Confirmed by SARAH BETH DUARTE, REMY ([id number]), editor house organ ASH JOHNSON ([id number]) on 04/19/2022 12:25:45 PM Referred By: Confirmed By:REMY BURLESON MD
--- NOTE | 2022-04-15 12:56 | ED.VIS.DYS ---
HPI History of Present Illness Chief Complaint: Shortness of Breath Informant: patient and family Narrative Narrative: History of COPD chronic 2 L of oxygen presents worsening dyspnea mild productive cough over the past week. No fevers. No headaches. No chest pains. Symptoms worse with exertion. She saw her barrel cleaner on Tuesday with similar symptoms, she has an echocardiogram ordered. However discussed with pulmonary team that same day was told to go the ER however she declined. They called her and Levaquin 750 mg daily symptoms have progressed. She is using her nebulized aerosol treatments at home. She states she has been wheezing. Used it prior to arrival. Upon presentation was 86% on 3 L. She is COVID vaccinated x2 however hospitalized after both x2 weeks later. She has not had COVID in the past. Last hospitalization was last year. Prior similar symptoms: Yes PFSH PFSH Medical History Chronic hypoxemic respiratory failure COPD exacerbation Coronary artery calcification GERD (gastroesophageal reflux disease) History of sudden cardiac arrest (01/11/15) Muscular deconditioning NOAM (obstructive sleep apnea) Pulmonary valve insufficiency Seasonal allergies Stage 3 severe COPD by GOLD classification Home Medications zolpidem 5 mg tablet 5 mg PO QHS PRN PRN Sleep 01/12/15 [History Last Taken 04/14/22] duloxetine 60 mg capsule,delayed release 60 mg PO BID ARTHRITIS 07/14/17 [History Last Taken 04/15/22] cholecalciferol (vitamin D3) 50 mcg (2,000 unit) tablet 50 mcg PO DAILY 08/13/20 [History Last Taken 04/15/22] famotidine 20 mg tablet 20 mg PO BID GERD 08/13/20 [History Last Taken 04/15/22] vit C,E,zinc,copper-nwapg8d 250 mg-lutein 5 mg-zeaxanthin 1 mg capsule (Ocuvite Adult 50 Plus) 1 cap PO QAM 08/13/20 [History Last Taken 04/15/22] aspirin 81 mg tablet,delayed release 81 mg PO .qod 11/20/20 [History Last Taken 04/15/22] ipratropium 0.5 mg-albuterol 3 mg (2.5 mg base)/3 mL nebulization soln 3 ml inhalation 4X/DAY COPD J44.9 #180 vials 01/07/22 [Rx Last Taken 04/15/22] albuterol sulfate 90 mcg/actuation aerosol inhaler (ProAir HFA) 2 inh inhalation Q6H PRN Wheezing #8.5 grams 10/29/21 [Rx Last Taken 04/12/22] fluticasone fur. 200 mcg-umeclid 62.5 mcg-vilant 25 mcg inhalat.powder (Trelegy Ellipta) 1 inh inhalation DAILY #60 ea 11/02/21 [Rx Last Taken 04/15/22] ascorbate calcium (vitamin C) 500 mg tablet 500 mg PO BID 12/11/21 [History Last Taken 04/15/22] levofloxacin 750 mg tablet 750 mg PO Q24H 7 days #7 tabs 04/12/22 [Rx Last Taken 04/14/22 18:00] loratadine 10 mg tablet (Claritin) 10 mg PO DAILY PRN ALLERGIES 04/12/22 [History Last Taken 04/15/22] calcium carbonate 600 mg calcium (1,500 mg) tablet (Calcium) 600 mg PO BID 04/15/22 [History Last Taken 04/15/22] Allergy/AdvReac Type Severity Reaction Status Date / Time hydrocodone [From Vicodin] Allergy Mild Nausea Verified 04/15/22 12:24 ropinirole Allergy hives Verified 04/15/22 12:24 azithromycin [From Zithromax] AdvReac Other Verified 04/15/22 12:24 Family History Father Lung disease Asthma Brother Asthma Heart disease Mother Arthritis Sister Lung Cancer Brother CAD (coronary artery disease) Cardiac pacemaker in situ Surgical History History of colonoscopy History of laparoscopic cholecystectomy History of right and left heart catheterization (LHC) (~08/26/20) History of tracheostomy Status post right inguinal hernia repair Social History Smoking Status: Former smoker quit date: 06/18/04 pack-years: 40 Tobacco: How many years used: 40 Electronic Cigarette Use: not used second hand exposure: No quit status: quit date established counseling given: provider counseling alcohol intake: never substance use type: does not use caffeine: Yes (3/day) what type of physical activity do you participate in: none ROS ROS ED Constitutional Constitutional ED: Denies chills, fever(s) or sweats Eyes Eyes: Denies change in vision ENT ENT ED: Denies dysphagia or sore throat Cardiovascular Cardiovascular: Denies chest pain, leg edema, palpitations or racing heartbeat Respiratory/Chest Respiratory/Chest: Reports cough, dyspnea and dyspnea on exertion Gastrointestinal Gastrointestinal: Denies abdominal pain, diarrhea, nausea or vomiting Genitourinary Genitourinary ED: Denies dysuria, hematuria or urinary frequency Musculoskeletal Musculoskeletal: Denies back pain, extremity pain or neck pain Integumentary Denies rash or wounds Neurologic Neurologic: Denies headache(s), paresthesias or weakness EXAM Physical Exam Const Vital Signs: 04/15/22 12:24 04/15/22 12:42 04/15/22 13:10 Temperature 96.2 F L Temperature Source Temporal Pulse Rate 97 85 Respiratory Rate 26 H 30 H Respiratory Effort Short of Breath Respiratory Depth Normal Respiratory Pattern Tachypnea Hyperpnea Blood Pressure Blood Pressure Mean Pulse Ox 86 Oxygen Delivery Method Nasal Cannula Nasal Cannula Oxygen Flow Rate (L/min) 3 04/15/22 13:10 04/15/22 13:11 04/15/22 13:33 Temperature Temperature Source Pulse Rate 83 Respiratory Rate 20 H Respiratory Effort Short of Breath Respiratory Depth Normal Respiratory Pattern Normal Blood Pressure 108/69 Blood Pressure Mean 82 Pulse Ox 97 95 Oxygen Delivery Method Nasal Cannula Nasal Cannula Nasal Cannula Oxygen Flow Rate (L/min) 4 4 4 Positive well nourished and well developed Constitutional Narrative: 4 L nasal cannula speaking in short sentences General Appearance ED: well developed and NAD HEENT Reports moist mucous membranes normocephalic and atraumatic Eyes PERRL, EOMs intact bilaterally and conjunctivae normal General Eye ED: Yes normal appearance of both eyes Neck no lymphadenopathy and supple General: Negative for tenderness Chest Wall Chest: Negative for tenderness Resp Resp Narrative: No current wheezing diminished sounds at the bases. Effort and Inspection: symmetric chest movement and respiratory distress Cardio regular rate, regular rhythm and no murmurs Peripheral Pulses: pulses 2+ throughout GI normal to inspection, nondistended, normoactive bowel sounds and non-tender Palpation: Negative for guarding or rebound tenderness present Back/Spine no CVA tenderness and no thoracic nor lumbar tenderness Extremity normal to inspection General Extremety ED: Negative for edema or tenderness General Extremity: Negative for edema Neuro oriented x3 and no sensory deficits noted Sensorium / Orientation: awake and alert Skin no rashes or lesions noted and no wounds MDM MDM MDM Narrative Medical decision making narrative: Patient speaking in short sentences slight tachypnea increasing oxygen demand. Differential pneumonia, COVID infection, COPD exacerbation versus bronchitis. Potential ACS exertional dyspnea. However no chest pains. Work-up initiated with labs aerosol treatment steroids started with COPD history. Chest x-ray ordered. COVID testing. 1330: Reevaluation improving symptoms compared to initial. Slight more comfortable however on 4 L of oxygen. 1 view chest x-ray interpreted myself shows no infiltrates. Her labs reviewed all stable white count 11 creatinine 0.9 troponin was negative. Acute flare last week has been no recent travel, she is not having recurrent COPD flares recently for concerns for PE at this time. She will need pulmonary toilet continue steroids. I will speak with hospitalist for plans for admission. Lab Data Attestation: I reviewed the patient's lab results. Labs: Laboratory Results - last 24 hr 04/15/22 04/15/22 12:40 12:40 WBC 11.1 H RBC 4.13 L Hgb 11.7 L Hct 38.0 MCV 92.0 MCH 28.3 MCHC 30.8 L RDW Std Deviation 45.1 H RDW Coeff of Yaquelin 13.4 Plt Count 360 MPV 9.6 Immature Gran % (Auto) 0.500 Neut % (Auto) 69.9 Lymph % (Auto) 17.9 L [place] % (Auto) 7.9 Eos % (Auto) 3.3 Baso % (Auto) 0.5 Absolute Neuts (auto) 7.8 H Absolute Lymphs (auto) 1.99 Nucleated RBC % 0 Sodium 140 Potassium 3.7 Chloride 104 Carbon Dioxide 31.0 Anion Gap 5 BUN 18 Creatinine 0.90 Estim Creat Clear Calc 40.13 Est GFR (MDRD) Af Amer 79 Est GFR (MDRD) Non-Af 65 BUN/Creatinine Ratio 20.1 H Glucose 109 H Calcium 8.9 Troponin I High Sens 4 Radiography Diagnostic Testing: Clinical Impression(s) from Imaging Studies Chest X-Ray 04/15/22 13:16 IMPRESSION: Hyperinflation. Mild degree of increased linear markings at the left lung base suggestive of linear atelectasis. Electronically Signed: Peewee Almodovar MD at 13:31 EST , EKG Initial EKG: Attestation: I personally reviewed and interpreted this EKG as follows: Comments: Sinus rate of 84, no ST or T wave changes QTC 423. Discharge Plan Dx/Rx/DC Orders Clinical Impression: COPD exacerbation, Hypoxia, Failure of outpatient treatment Disposition Disposition: Acute Care Hospital [facility] Discharge Date/Time: 04/15/22 14:28
[2022-04-15] MEDS: Ipratropium/Albuterol Sulfate 3 ML AMPUL.NEB INHALATION ×3 (13:05→20:01)
[2022-04-15 13:07] LABS: Absolute Lymphocyte Count 1.99 X10^3/uL (0.83-4.51); Absolute Neutrophil Count 7.8 X10^3/uL (2.0-7.7); Basophil# 0.05 X10^3/uL; Basophil% 0.5 % (0-1); Eosinophil# 0.37 X10^3/uL; Eosinophils% 3.3 % (0-5); Hemoglobin 11.7 g/dL (12.0-15.0); Lymphocyte # 1.99 X10^3/ul (0.83-4.51); Lymphocyte % 17.9 % (19-41); Mean Corp Hgb Conc 30.8 g/dL (32-36); Mean Corpuscular Hgb 28.3 pg (27.0-32.0); Mean Platelet Vol. 9.6 fl (6.2-12.0); Monocyte# 0.88 X10^3/uL; Monocyte% 7.9 % (0-10); NRBC Flagged by Analyzer 0 % (0-5); Neutrophil # 7.76 X10^3/uL (2.7-7.7); Neutrophil % 69.9 % (47-70); Platelet Count 360 K/mm3 (150-450); RBC Distribution Width CV 13.4 % (11.6-14.6); RBC Distribution Width SD 45.1 fl (35.1-43.9); Red Blood Count 4.13 M/mm3 (4.2-5.4); White Blood Count 11.1 K/mm3 (4.4-11.0)
[2022-04-15] MEDS: MethylPREDNISolone 125 MG/2 ML Vial IV (13:08)
--- NOTE | 2022-04-15 13:16 | RAD_ITS ---
STUDY: X-RAY CHEST REASON FOR EXAM: Female, 76 years old. Sob TECHNIQUE: Single AP portable view of the chest. COMPARISON: Comparison is made with prior study 05/30/2020. FINDINGS: EKG electrodes are seen. Hyperinflation. Mild increased markings at the left lung base suggestive of underlying atelectasis. There is no demonstrated pleural abnormality. Normal size heart. Normal mediastinum and jaclyn. Normal visualized pulmonary arteries. There is atherosclerotic calcification of the aortic arch with tortuosity. There are diffuse degenerative changes of the visualized thoracic spine. There is degenerative osteoarthritis of the bilateral shoulders. There is no demonstrated abnormality of the visualized soft tissue structures of the upper abdomen. RAD/Chest 1 View (Portable) IMPRESSION: Hyperinflation. Mild degree of increased linear markings at the left lung base suggestive of linear atelectasis. Electronically Signed: Peewee Almodovar MD at 13:31 EST ,
[2022-04-15 13:23] LABS: Anion Gap 5 (5-15); BUN 18 mg/dL (7-18); BUN/Creat Ratio 20.1 RATIO (10-20); Calcium,Total 8.9 mg/dL (8.5-10.1); Chloride 104 mmol/L (98-107); EST Glomerular Filtration Rate 65 mL/min (>60); Est Glom Filt Rate - Afr Amer 79 mL/min (>60); Estimated Creatinine Clearance 40.13 ml/min; Glucose 109 mg/dL (74-106); Potassium 3.7 mmol/L (3.5-5.1); Sodium Level 140 mmol/L (136-145); Troponin-I HS 4 pg/mL (3.0-54.0)
--- NOTE | 2022-04-15 13:42 | HP.PCM.HOS_ITS ---
HPI - General General Date of Admission: 04/15/22 Date of Service: 04/15/22 Chief Complaint: Dyspnea, wheezing. HPI Narrative The patient is a 76 y/o F w/ PMHx: Nonobstructive CAD, COPD with Chronic Hypoxic Respiratory Failure (3L), NOAM, GERD, Chronic normocytic anemia, RLS, Allergic rhinitis, Former tobacco use, History of cardiopulmonary arrest requiring tracheostomy at that time who presents to the [facility] ED on 04/15/22 with history of progressively worsening dyspnea with a mildly productive cough over the last week with no associated fevers, dyspnea worse with exertion with recent cardiology evaluation on Tuesday with similar symptoms at that time with echocardiogram ordered and pending however given ongoing symptoms contacted her pulmonary team and was encouraged to present to the ED however at that time she declined and was started on oral outpatient Levaquin with continued usage of her home aerosol nebulizer treatments but continued to significantly wheeze and became hypoxic on her chronic home oxygen supplementation prompting eventual ED evaluation. She does report some mild events initial ED presentation with treatments but she has not been up and attempted to exert herself as of yet she notes. Work-up in the ED included T96.2, heart rate 97, BP 26, initially 86% on 3 L nasal cannula with improvement to 97% on 4 L nasal cannula, CBC with WC 11.1, hemoglobin 11.7, MCV 92, platelet 360 with left shift, BMP with glucose 109 otherwise not marked appearing, troponin 4, chest x-ray with hyperinflation with mild degree increased linear markings at the left lung base suggestive of linear atelectasis. In the ED patient administered DuoNeb therapies as well as Solu-Medrol 125 mg IV x1. COUNTS INCLUDE 234 BEDS AT THE [facility] Medical History Chronic hypoxemic respiratory failure COPD exacerbation Coronary artery calcification GERD (gastroesophageal reflux disease) History of sudden cardiac arrest (01/11/15) Muscular deconditioning NOAM (obstructive sleep apnea) Pulmonary valve insufficiency Seasonal allergies Stage 3 severe COPD by GOLD classification Home Medications zolpidem 5 mg tablet 5 mg PO QHS PRN PRN Sleep 01/12/15 [History Last Taken 04/14/22] duloxetine 60 mg capsule,delayed release 60 mg PO BID ARTHRITIS 07/14/17 [History Last Taken 04/15/22] cholecalciferol (vitamin D3) 50 mcg (2,000 unit) tablet 50 mcg PO DAILY 08/13/20 [History Last Taken 04/15/22] famotidine 20 mg tablet 20 mg PO BID GERD 08/13/20 [History Last Taken 04/15/22] vit C,E,zinc,copper-vuyqc1n 250 mg-lutein 5 mg-zeaxanthin 1 mg capsule (Ocuvite Adult 50 Plus) 1 cap PO QAM 08/13/20 [History Last Taken 04/15/22] aspirin 81 mg tablet,delayed release 81 mg PO .qod 11/20/20 [History Last Taken 04/15/22] ipratropium 0.5 mg-albuterol 3 mg (2.5 mg base)/3 mL nebulization soln 3 ml inhalation 4X/DAY COPD J44.9 #180 vials 04/10/21 [Rx Last Taken 04/15/22] albuterol sulfate 90 mcg/actuation aerosol inhaler (ProAir HFA) 2 inh inhalation Q6H PRN Wheezing #8.5 grams 10/29/21 [Rx Last Taken 04/12/22] fluticasone fur. 200 mcg-umeclid 62.5 mcg-vilant 25 mcg inhalat.powder (Trelegy Ellipta) 1 inh inhalation DAILY #60 ea 11/02/21 [Rx Last Taken 04/15/22] ascorbate calcium (vitamin C) 500 mg tablet 500 mg PO BID 12/11/21 [History Last Taken 04/15/22] levofloxacin 750 mg tablet 750 mg PO Q24H 7 days #7 tabs 04/12/22 [Rx Last Taken 04/14/22 18:00] loratadine 10 mg tablet (Claritin) 10 mg PO DAILY PRN ALLERGIES 04/12/22 [History Last Taken 04/15/22] calcium carbonate 600 mg calcium (1,500 mg) tablet (Calcium) 600 mg PO BID 04/15/22 [History Last Taken 04/15/22] Allergy/AdvReac Type Severity Reaction Status Date / Time hydrocodone [From Vicodin] Allergy Mild Nausea Verified 04/15/22 12:24 ropinirole Allergy hives Verified 04/15/22 12:24 azithromycin [From Zithromax] AdvReac Other Verified 04/15/22 12:24 Family History Father Lung disease Asthma Brother Asthma Heart disease Mother Arthritis Sister Lung Cancer Brother CAD (coronary artery disease) Cardiac pacemaker in situ Surgical History History of colonoscopy History of laparoscopic cholecystectomy History of right and left heart catheterization (LHC) (~08/26/20) History of tracheostomy Status post right inguinal hernia repair Social History Smoking Status: Former smoker quit date: 06/18/04 pack-years: 40 Tobacco: How many years used: 40 Electronic Cigarette Use: not used second hand exposure: No quit status: quit date established counseling given: provider counseling alcohol intake: never substance use type: does not use caffeine: Yes (3/day) what type of physical activity do you participate in: none ROS ROS Narrative Admission Review of Systems: CONSTITUTIONAL: No weight loss, fever, chills, + weakness or fatigue. HEENT: + Mild congestion. Eyes: No visual loss, blurred vision, double vision or yellow sclerae. Ears, Nose, Throat: No hearing loss, sneezing, sore throat. SKIN: No rash or itching, lesions, wounds. CARDIOVASCULAR: No chest pain, chest pressure or chest discomfort, palpitations, edema, orthopnea, syncopal events. RESPIRATORY: + shortness of breath, cough mildly productive sputum, wheezing, No hemoptysis. GASTROINTESTINAL: No anorexia, nausea, vomiting or diarrhea, abdominal pain, melena, BRBPR. GENITOURINARY: No dysuria, frequency, urgency or retention. NEUROLOGICAL: No headache, dizziness, syncope, paralysis, ataxia, numbness or tingling in the extremities, focal weakness, change in bowel or bladder control, seizure. MUSCULOSKELETAL: + muscle, back pain, joint pain or stiffness. HEMATOLOGIC: + anemia, bleeding or bruising. LYMPHATICS: No enlarged nodes. No history of splenectomy. PSYCHIATRIC: + history of depression or anxiety. ENDOCRINOLOGIC: No reports of sweating, cold or heat intolerance. No polyuria or polydipsia. ALLERGIES: + history of hives, rhinitis. Vital Signs Vital Signs Vital Signs: 04/15/22 12:24 04/15/22 12:42 04/15/22 13:10 Temperature 96.2 F L Temperature Source Temporal Pulse Rate 97 85 Respiratory Rate 26 H 30 H Respiratory Effort Short of Breath Respiratory Depth Normal Respiratory Pattern Tachypnea Hyperpnea Blood Pressure Blood Pressure Mean Pulse Ox 86 Oxygen Delivery Method Nasal Cannula Nasal Cannula Oxygen Flow Rate (L/min) 3 04/15/22 13:10 04/15/22 13:11 04/15/22 13:33 Temperature Temperature Source Pulse Rate 83 Respiratory Rate 20 H Respiratory Effort Short of Breath Respiratory Depth Normal Respiratory Pattern Normal Blood Pressure 108/69 Blood Pressure Mean 82 Pulse Ox 97 95 Oxygen Delivery Method Nasal Cannula Nasal Cannula Nasal Cannula Oxygen Flow Rate (L/min) 4 4 4 Weight Weight: 145 lb Body Mass Index (BMI) 27.3 Physical Exam Narrative Physical Examination: General: Awake, alert, oriented x 3 and cooperative, seated upright in ED bed, fatigued, still increased respiratory rate and some mild accessory muscle usage especially with any deep inspiratory effort attempts or movement. Skin: Normal color, normal turgor, no icterus, no cyanosis. HEENT: AT/NC, EOMI, PERRLA, mildly dry MM, no carotid bruits or JVD noted. Lungs: Severely diminished, mildly improved movement at the bases but notable soft end expiratory wheeze, mildly increased respiratory rate and some accessory muscle usage, no rales or rhonchi. Heart: Regular rate and rhythm; no gallop, rub audible. Abdomen: Soft, overweight, NTTP, ND, distant normal BS, no HSM. Extremities: No cyanosis, clubbing, or edema. Neurological: Patient awake, alert, oriented as noted, cognitive function intact; pupils equally reactive to light and accommodation, cranial nerves II- XII grossly normal, moving all 4 extremities, no focal deficits, strength severely global decrease secondary to acute presentation. Psychiatric: Affect appears fatigued, still ongoing mild respiratory rate increase and some mild accessory muscle usage, no acute evidence of depressive or anxiety feelings. Results Lab / Micro Data Result Diagrams: 04/15/22 12:40 04/15/22 12:40 Labs: Laboratory Results - last 24 hr 04/15/22 12:40: WBC 11.1 H, RBC 4.13 L, Hgb 11.7 L, Hct 38.0, MCV 92.0, MCH 28.3, MCHC 30.8 L, RDW Std Deviation 45.1 H, RDW Coeff of [place] 13.4, Plt Count 360, MPV 9.6, Immature Gran % (Auto) 0.500, Neut % (Auto) 69.9, Lymph % (Auto) 17.9 L, [place] % (Auto) 7.9, Eos % (Auto) 3.3, Baso % (Auto) 0.5, Absolute Neuts (auto) 7.8 H, Absolute Lymphs (auto) 1.99, Nucleated RBC % 0 04/15/22 12:40: Sodium 140, Potassium 3.7, Chloride 104, Carbon Dioxide 31.0, Anion Gap 5, BUN 18, Creatinine 0.90, Estim Creat Clear Calc 40.13, Est GFR (MDRD) Af Amer 79, Est GFR (MDRD) Non-Af 65, BUN/Creatinine Ratio 20.1 H, Glucose 109 H, Calcium 8.9, Troponin I High Sens 4 Micro: Microbiology 04/15/22 13:00 Nasal Secretion SARS-CoV-2 Antigen (Rapid) - Final Radiology Impression Chest X-Ray 04/15/22 13:16 IMPRESSION: Hyperinflation. Mild degree of increased linear markings at the left lung base suggestive of linear atelectasis. Electronically Signed: Peewee Almodovar MD at 13:31 EST , Assessment & Plan Assessment/Plan (1) COPD exacerbation: (2) Hypoxia: PLAN: Plan The patient is a 76 y/o F w/ PMHx: Nonobstructive CAD, COPD with Chronic Hypoxic Respiratory Failure (3L), NOAM, GERD, Chronic normocytic anemia, RLS, Allergic rhinitis, Former tobacco use, History of cardiopulmonary arrest requiring tracheostomy at that time who presents to the [facility] ED on 04/15/22 with history of progressively worsening dyspnea with a mildly productive cough over the last week with no associated fevers. #1. Acute on chronic COPD exacerbation w/ Acute Hypoxia on Chronic Hypoxic Respiratory Failure: Will admit to MS, maintain on oxygen with wean as tolerated to home oxygen supplementation, continue ATC duonebs, PRN albuterol, IV methylprednisolone with prednisone transition, HOB, IS parameters, defer abx pending sputum Cx, full respiratory viral panel, procalcitonin. If any indication bacterial etiology will add abx therapy. Given presentation we will continue treatment of acute COPD exacerbation and if appropriate will obtain echocardiogram following this or may be done outpatient if appropriate at that time. #2. Normocytic anemia: Admission hemoglobin 11.7, baseline appears more recently - however 08/15/2020 hemoglobin was 13 at that time, will repeat level in AM. #3. Nonobstructive CAD: We will continue aspirin, not on statin nor ANA inhibitor/ARB or beta-pillo therapy likely secondary to underlying pulmonary history and low normal BP, encourage continued outpatient follow-up. #4. Allergic rhinitis: We will continue patient home loratadine and fluticasone regimen. #5. Former tobacco use: Encourage continued tobacco cessation. #6. Restless leg syndrome: Per current list not on regimen, add Mirapex if necessary. #7. GERD: We will continue patient on PPI. #8. NOAM: BiPAP nightly. #9. DVT prophylaxis: SCDs, Lovenox. #10. CODE status: Discussed CODE status at length including difference between FULL code, DNR-CCA and DNR-CC status. Following discussions about the differences in these status especially given previous intubation needs and eventual tracheostomy with removal, requested Full Code status. Admission Evaluation Time spent evaluating chart, patient history, patient evaluation, care planning and discussion with specialists: 77 minutes. Charges/Coding Visit Charges Inpatient E&M: 28542 Init Hosp L3
[2022-04-15] MEDS: 0.9% Saline Lock 10 ML Syringe IV ×2 (15:33→22:26)
--- NOTE | 2022-04-15 15:52 | CPS ---
Patient stated that she did not prefer to use our Bipap machine and that she will be ok on the Oxygen for the night. I told patient we have a machine for her if she chooses to use it or she can have a family member bring in her home unit.
[2022-04-15] MEDS: DULoxetine Hcl 60 MG Capsule PO (22:27)
[2022-04-15] MEDS: Ascorbic Acid 500 MG Tablet PO (22:28)
[2022-04-16] VITALS (11 sets, daily range): BP systolic 108–186; BP diastolic 57–88; PULSE 62–108; RESP 16–24; TEMP 36.6–36.9; O2SAT 94–100; BMI 26.8
[2022-04-16] MEDS: Zolpidem Tartrate 5 MG Tablet PO ×2 (00:23→22:31)
[2022-04-16] MEDS: Acetaminophen 325 MG Tablet 650 MG PO (06:17)
[2022-04-16 06:29] LABS: Absolute Lymphocyte Count 0.69 X10^3/uL (0.83-4.51); Absolute Neutrophil Count 9.7 X10^3/uL (2.0-7.7); Basophil# 0.01 X10^3/uL; Basophil% 0.1 % (0-1); Hematocrit 36.3 % (37-47); Hemoglobin 10.6 g/dL (12.0-15.0); Lymphocyte # 0.69 X10^3/ul (0.83-4.51); Lymphocyte % 6.5 % (19-41); Mean Corp Hgb Conc 29.2 g/dL (32-36); Mean Corpuscular Hgb 28.3 pg (27.0-32.0); Mean Corpuscular Volume 97.1 fL (81-99); Mean Platelet Vol. 9.8 fl (6.2-12.0); Monocyte# 0.13 X10^3/uL; Monocyte% 1.2 % (0-10); NRBC Flagged by Analyzer 0 % (0-5); Neutrophil # 9.68 X10^3/uL (2.7-7.7); Neutrophil % 91.4 % (47-70); Platelet Count 328 K/mm3 (150-450); RBC Distribution Width CV 13.4 % (11.6-14.6); RBC Distribution Width SD 48.1 fl (35.1-43.9); Red Blood Count 3.74 M/mm3 (4.2-5.4); White Blood Count 10.6 K/mm3 (4.4-11.0)
[2022-04-16 06:56] LABS: AST(SGOT) 16 U/L (15-37); Alanine Aminotransfer ALT/SGPT 25 U/L (13-56); Albumin, Serum 3.1 g/dL (3.2-5.0); Alkaline Phosphatase 54 U/L (45-117); Anion Gap 8 (5-15); BUN 17 mg/dL (7-18); BUN/Creat Ratio 25.8 RATIO (10-20); Calcium,Total 8.5 mg/dL (8.5-10.1); Chloride 104 mmol/L (98-107); Creatinine, Serum 0.66 mg/dL (0.55-1.02); EST Glomerular Filtration Rate 92 mL/min (>60); Est Glom Filt Rate - Afr Amer 112 mL/min (>60); Estimated Creatinine Clearance 36.12 ml/min; Globulin 3.2 g/dL (2.2-4.2); Glucose 159 mg/dL (74-106); Protein, Total 6.3 g/dL (6.4-8.2); Sodium Level 140 mmol/L (136-145)
[2022-04-16] MEDS: Ipratropium/Albuterol Sulfate 3 ML AMPUL.NEB INHALATION ×5 (07:39→23:05)
--- NOTE | 2022-04-16 07:39 | CPS ---
Pt declined our BIPAP machine, pt will see if her son will bring in her BIPAP.
[2022-04-16] MEDS: Famotidine 20 MG Tablet PO (10:46)
[2022-04-16] MEDS: Loratadine 10 MG Tablet PO (10:46)
[2022-04-16] MEDS: Ascorbic Acid 500 MG Tablet PO ×2 (10:46→22:20)
[2022-04-16] MEDS: Enoxaparin 40 MG/0.4 ML Syringe SC (10:46)
[2022-04-16] MEDS: DULoxetine Hcl 60 MG Capsule PO ×2 (10:46→22:20)
--- NOTE | 2022-04-16 11:57 | PCM.PN.HOSP ---
Subjective Subjective Follow-up for COPD exacerbation Patient is very symptomatic with shortness of breath cough and wheezing. She gets short of breath even walking to bathroom. Objective Data Objective Data Vital Signs: Vital Signs Temp Pulse Resp BP Pulse Ox O2 Del Method O2 Flow Rate 97.9 F 108 H 24 H 186/88 H 94 Nasal Cannula 2 04/16/22 10:00 04/16/22 10:49 04/16/22 10:49 04/16/22 10:00 04/16/22 10:49 04/16/22 10:49 04/16/22 10:49 Oxygen Flow Rate (L/min) 2 Oxygen Delivery Method Nasal Cannula Weight: 142 lb 3.17 oz Body Mass Index (BMI) 26.8 Intake & Output: Intake and Output for Last 24 Hours 04/14/22 04/15/22 04/16/22 23:59 23:59 23:59 Intake Total 600 / 600 Balance 600 / 600 Lab / Micro Data Result Diagrams: 04/16/22 06:05 04/16/22 06:05 Labs: Laboratory Results - last 24 hr 04/15/22 12:40: WBC 11.1 H, RBC 4.13 L, Hgb 11.7 L, Hct 38.0, MCV 92.0, MCH 28.3, MCHC 30.8 L, RDW Std Deviation 45.1 H, RDW Coeff of [place] 13.4, Plt Count 360, MPV 9.6, Immature Gran % (Auto) 0.500, Neut % (Auto) 69.9, Lymph % (Auto) 17.9 L, [place] % (Auto) 7.9, Eos % (Auto) 3.3, Baso % (Auto) 0.5, Absolute Neuts (auto) 7.8 H, Absolute Lymphs (auto) 1.99, Nucleated RBC % 0 04/15/22 12:40: Sodium 140, Potassium 3.7, Chloride 104, Carbon Dioxide 31.0, Anion Gap 5, BUN 18, Creatinine 0.90, Estim Creat Clear Calc 40.13, Est GFR (MDRD) Af Amer 79, Est GFR (MDRD) Non-Af 65, BUN/Creatinine Ratio 20.1 H, Glucose 109 H, Calcium 8.9, Troponin I High Sens 4 04/15/22 13:50: Procalcitonin 0.10 H 04/16/22 06:05: WBC 10.6, RBC 3.74 L, Hgb 10.6 L, Hct 36.3 L, MCV 97.1 D, MCH 28.3, MCHC 29.2 L D, RDW Std Deviation 48.1 H, RDW Coeff of [place] 13.4, Plt Count 328, MPV 9.8, Immature Gran % (Auto) 0.800, Neut % (Auto) 91.4 H, Lymph % (Auto) 6.5 L, [place] % (Auto) 1.2, Eos % (Auto) 0.0, Baso % (Auto) 0.1, Absolute Neuts (auto) 9.7 H, Absolute Lymphs (auto) 0.69 L, Nucleated RBC % 0 04/16/22 06:05: Sodium 140, Potassium 4.0, Chloride 104, Carbon Dioxide 28.0, Anion Gap 8, BUN 17, Creatinine 0.66, Estim Creat Clear Calc 36.12, Est GFR (MDRD) Af Amer 112, Est GFR (MDRD) Non-Af 92, BUN/Creatinine Ratio 25.8 H, Glucose 159 H, Calcium 8.5, Total Bilirubin 0.30, AST 16, ALT 25, Alkaline Phosphatase 54, Total Protein 6.3 L, Albumin 3.1 L, Globulin 3.2, Albumin/Globulin Ratio 1.0 Micro: Microbiology 04/15/22 16:00 Mucosa - Nose Respiratory Panel (PCR) - Final 04/15/22 13:00 Nasal Secretion SARS-CoV-2 Antigen (Rapid) - Final Radiography Diagnostic Testing: Radiology Impression Chest X-Ray 04/15/22 13:16 IMPRESSION: Hyperinflation. Mild degree of increased linear markings at the left lung base suggestive of linear atelectasis. Electronically Signed: Peewee Almodovar MD at 13:31 EST , Physical Exam Narrative History of COPD on 2 L of home oxygen admitted with progressive worsening dyspnea and mild productive cough over the last 1 week. No fever. No chest pain. Patient saw her manpower development specialist manager on Tuesday for similar symptoms. She is started on Levaquin 750 mg by rooming house operator who recommended to go to ED on Tuesday but she did not. Pulse ox was 86% on 3 L of oxygen. Vaccinated with COVID x2. Physical exam General: Alert, Oriented x3, Cooperative HEENT: Atraumatic, PERRLA, EOMI, Normocephalic Oral: Oral mucosa dry. No Gingival or Mucosal Lesions/ Ulcerations Neck: Supple, No JVD, Negative Carotid Bruits Lungs: Air entry diminished in all lung [place]. Diffuse wheezing and rhonchi. Dyspnea on mild exertion Cardiovascular: Regular rate, Regular Rhythm, Normal S1, Normal S2, No murmurs Abdomen: Bowel Sounds Present, Soft, Non Tender, Non-Distended : No renal angle tenderness. No suprapubic tenderness. Extremities: No edema, Capillary Refill Less than 3 Seconds Skin: No rashes, No breakdown Musculoskeletal: No Tenderness to Palpation of Joints or Extremities Neurological: Cranial nerves II-XII grossly intact, DTR 2+/4 and Symmetrical, Neuro grossly intact Psych/Mental Status: Flat affect Assessment & Plan Assessment/Plan (1) COPD exacerbation: (2) Hypoxia: PLAN: Plan The patient is a 76 y/o F w/ PMHx: Nonobstructive CAD, COPD with Chronic Hypoxic Respiratory Failure (3L), NOAM, GERD, Chronic normocytic anemia, RLS, Allergic rhinitis, Former tobacco use, History of cardiopulmonary arrest requiring tracheostomy at that time who presents to the [facility] ED on 04/15/22 with history of progressively worsening dyspnea with a mildly productive cough over the last week with no associated fevers. #1. Acute on chronic COPD exacerbation w/ Acute Hypoxia on Chronic Hypoxic Respiratory Failure: Will admit to MS, maintain on oxygen with wean as tolerated to home oxygen supplementation, continue ATC duonebs, PRN albuterol, IV methylprednisolone with prednisone transition, HOB, IS parameters, defer abx pending sputum Cx, full respiratory viral panel, procalcitonin. If any indication bacterial etiology will add abx therapy. Given presentation we will continue treatment of acute COPD exacerbation and if appropriate will obtain echocardiogram following this or may be done outpatient if appropriate at that time. 04/16: Patient is admitted on MedSurg floor. Oxygen to keep pulse ox 90%. On bronchodilator, IV Solu-Medrol, Mucinex DM, incentive spirometry and Pep. Chest x-ray negative UA shows mild negative nuclear markings abdomen was suggestive of atelectasis, no definite focal infiltrate or consolidation. Respiratory panel negative. #2. Normocytic anemia: Admission hemoglobin 11.7, baseline appears more recently 02-13 however 08/15/2020 hemoglobin was 13 at that time. Hemoglobin 10.6 g%. #3. Nonobstructive CAD: continue aspirin, not on statin nor ANA inhibitor/ARB or beta-pillo therapy likely secondary to underlying pulmonary history and low normal BP, encourage continued outpatient follow-up. #4. Allergic rhinitis: We will continue patient home loratadine and fluticasone regimen. #5. Former tobacco use: Encourage continued tobacco cessation. #6. Restless leg syndrome: Per current list not on regimen, add Mirapex if necessary. #7. GERD: We will continue patient on PPI. #8. NOAM: BiPAP nightly. #9. DVT prophylaxis: SCDs, Lovenox. #10. CODE status: Discussed CODE status at length including difference between FULL code, DNR-CCA and DNR-CC status. Following discussions about the differences in these status especially given previous intubation needs and eventual tracheostomy with removal, requested Full Code status. Charges/Coding Visit Charges Inpatient E&M: 45833 Subs Hosp L2
--- NOTE | 2022-04-16 12:45 | CASEMGMT ---
DONTA QUINONES DC Planning Assessment: Face to face with pt at bedside for initial transition planning/care coordination assessment. SEAMUS QUINONES introduced self and role at [facility]. Pt voiced understanding. Pt alert, oriented x4 and agreeable to participating in assessment. Pt sitting on edge of bed visiting with family. Pt's son Albert and grandson at bedside. Pt provided permission to speak in front of family. Care providers, pharmacy, and demographics verified. Admitting Dx: COPD exac PCP: Dr. Culver Specialists: Dr. Carrera (pulm), Dr. Kumar (cardio) Preferred Pharmacy: [facility] Insurance: [employer], [employer] Prescription benefit: yes Living Will/HPOA: Yes/Yes-blas Price LNOK: blas Price, blas Pierre Living arrangements: Pt lives alone in a one story home with 5 steps w/handrail to enter. Pt is independent with ADLS including household tasks. Family able to assist if needed. Transportation: pt drives, family able to drive if pt unable. DME: [facility], grab bars, hand held shower, nebulizer, pulse oximeter, oxygen 2l/min from [employer], Bipap from [facility] SNF/HHC: none previous Plan: Pt plans to return home alone with support of family. States she is active with [facility]. Pt states she is not homebound. Will continue to monitor pt's O2 needs and assist with any discharge needs as identified. Denton Isaac RN CM
--- NOTE | 2022-04-16 13:54 | CASEMGMT ---
Email to palliative care, received confirmation from Yaima Mas that pt is active with their services. She is aware pt is hospitalized.
[2022-04-16] MEDS: 0.9% Saline Lock 10 ML Syringe IV (14:04)
[2022-04-17] VITALS (8 sets, daily range): BP systolic 116–128; BP diastolic 58–70; PULSE 88–100; RESP 16–20; TEMP 36.6–36.8; O2SAT 94–98
[2022-04-17] MEDS: Ipratropium/Albuterol Sulfate 3 ML AMPUL.NEB INHALATION ×3 (07:27→19:52)
[2022-04-17] MEDS: Ascorbic Acid 500 MG Tablet PO ×2 (09:28→21:06)
[2022-04-17] MEDS: DULoxetine Hcl 60 MG Capsule PO ×2 (09:28→21:06)
[2022-04-17] MEDS: Enoxaparin 40 MG/0.4 ML Syringe SC (09:28)
[2022-04-17] MEDS: Aspirin E.C. 81 MG Tablet PO (09:28)
[2022-04-17] MEDS: Famotidine 20 MG Tablet PO (09:29)
[2022-04-17] MEDS: Loratadine 10 MG Tablet PO (09:29)
[2022-04-17] MEDS: 0.9% Saline Lock 10 ML Syringe IV (14:31)
--- NOTE | 2022-04-17 15:00 | PN.HOSP_ITS ---
Subjective Subjective Follow-up for COPD exacerbation. Patient is still very short of breath and wheezy. Dyspnea on minimal exertion.. Objective Data Objective Data Vital Signs: Vital Signs Temp Pulse Resp BP Pulse Ox O2 Del Method O2 Flow Rate 97.9 F 96 20 H 125/65 H 94 Nasal Cannula 2 04/17/22 14:20 04/17/22 14:20 04/17/22 14:20 04/17/22 14:20 04/17/22 14:20 04/17/22 14:25 04/17/22 14:25 Oxygen Flow Rate (L/min) 2 Oxygen Delivery Method Nasal Cannula Weight: 144 lb 9.972 oz Body Mass Index (BMI) 26.8 Intake & Output: Intake and Output for Last 24 Hours 04/15/22 04/16/22 04/17/22 23:59 23:59 23:59 Intake Total 1200 / 1200 1000 / 1000 Balance 1200 / 1200 1000 / 1000 Lab / Micro Data Result Diagrams: 04/16/22 06:05 04/16/22 06:05 Micro: Microbiology 04/16/22 13:30 Sputum, Expectorated/Coughed Gram Stain - Final 04/16/22 13:30 Sputum, Expectorated/Coughed Respiratory Culture - Preliminary Appears to be normal respiratory jocelyn. Further studies to follow. 04/15/22 16:00 Mucosa - Nose Respiratory Panel (PCR) - Final 04/15/22 13:00 Nasal Secretion SARS-CoV-2 Antigen (Rapid) - Final Physical Exam Narrative Dyspnea on mild exertion. Difficulty in catching her breath sometimes even at rest. Has productive cough. Physical exam General: Alert, Oriented x3, Cooperative HEENT: Atraumatic, PERRLA, EOMI, Normocephalic Oral: Oral mucosa dry. No Gingival or Mucosal Lesions/ Ulcerations Neck: Supple, No JVD, Negative Carotid Bruits Lungs: Air entry diminished in all lung frederick. Diffuse wheezing and rhonchi. Dyspnea on mild exertion Cardiovascular: Regular rate, Regular Rhythm, Normal S1, Normal S2, No murmurs Abdomen: Bowel Sounds Present, Soft, Non Tender, Non-Distended : No renal angle tenderness. No suprapubic tenderness. Extremities: No edema, Capillary Refill Less than 3 Seconds Skin: No rashes, No breakdown Musculoskeletal: No Tenderness to Palpation of Joints or Extremities Neurological: Cranial nerves II-XII grossly intact, DTR 2+/4 and Symmetrical, Neuro grossly intact Psych/Mental Status: Flat affect Assessment & Plan Assessment/Plan (1) COPD exacerbation: (2) Hypoxia: PLAN: Plan The patient is a 76 y/o F w/ PMHx: Nonobstructive CAD, COPD with Chronic Hypoxic Respiratory Failure (3L), NOAM, GERD, Chronic normocytic anemia, RLS, Allergic rhinitis, Former tobacco use, History of cardiopulmonary arrest requiring tracheostomy at that time who presents to the [facility] ED on 04/15/22 with history of progressively worsening dyspnea with a mildly productive cough over the last week with no associated fevers. #1. Acute on chronic COPD exacerbation w/ Acute Hypoxia on Chronic Hypoxic Respiratory Failure: Will admit to MS, maintain on oxygen with wean as tolerated to home oxygen supplementation, continue ATC duonebs, PRN albuterol, IV methylprednisolone with prednisone transition, HOB, IS parameters, defer abx pending sputum Cx, full respiratory viral panel, procalcitonin. If any indication bacterial etiology will add abx therapy. Given presentation we will continue treatment of acute COPD exacerbation and if appropriate will obtain echocardiogram following this or may be done outpatient if appropriate at that time. 04/16: Patient is admitted on MedSurg floor. Oxygen to keep pulse ox 90%. On bronchodilator, IV Solu-Medrol, Mucinex DM, incentive spirometry and Pep. Chest x-ray negative UA shows mild negative nuclear markings abdomen was suggestive of atelectasis, no definite focal infiltrate or consolidation. Respiratory panel negative. 04/17: Continue all treatment. Patient still has shortness of breath, dyspnea and needs more treatment here. #2. Normocytic anemia: Admission hemoglobin 11.7, baseline appears more recently 02-13 however 08/15/2020 hemoglobin was 13 at that time. Hemoglobin 10.6 g%. #3. Nonobstructive CAD: continue aspirin, not on statin nor ANA inhibitor/ARB or beta-pillo therapy likely secondary to underlying pulmonary history and low normal BP, encourage continued outpatient follow-up. #4. Allergic rhinitis:continue patient home loratadine and fluticasone regimen. #5. Former tobacco use: Encourage continued tobacco cessation. #6. Restless leg syndrome: Per current list not on regimen, add Mirapex if necessary. #7. GERD: continue patient on PPI. #8. NOAM: BiPAP nightly. #9. DVT prophylaxis: SCDs, Lovenox. #10. CODE status: Discussed CODE status at length including difference between FULL code, DNR-CCA and DNR-CC status. Following discussions about the dif ferences in these status especially given previous intubation needs and eventual tracheostomy with removal, requested Full Code status. Charges/Coding Visit Charges Inpatient E&M: 84871 Subs Hosp L2
[2022-04-17] MEDS: Zolpidem Tartrate 5 MG Tablet PO (21:14)
[2022-04-18] VITALS (8 sets, daily range): BP systolic 105–140; BP diastolic 59–77; PULSE 89–101; RESP 18–20; TEMP 36.6–37.1; O2SAT 94–96
[2022-04-18] MEDS: 0.9% Saline Lock 10 ML Syringe IV ×3 (05:40→18:44)
[2022-04-18] MEDS: Ipratropium/Albuterol Sulfate 3 ML AMPUL.NEB INHALATION ×4 (07:03→20:29)
--- NOTE | 2022-04-18 10:47 | PCM.PN.HOSP ---
Subjective Subjective Follow-up for severe COPD exacerbation. Patient is still very short of breath and wheezy. Dyspnea on mild exertion. Objective Data Objective Data Vital Signs: Vital Signs Temp Pulse Resp BP Pulse Ox O2 Del Method O2 Flow Rate 97.9 F 89 19 H 105/67 95 Nasal Cannula 2 04/18/22 03:45 04/18/22 07:04 04/18/22 07:04 04/18/22 03:45 04/18/22 07:04 04/18/22 07:04 04/18/22 07:04 Oxygen Flow Rate (L/min) 2 Oxygen Delivery Method Nasal Cannula Weight: 146 lb 2.664 oz Body Mass Index (BMI) 26.8 Intake & Output: Intake and Output for Last 24 Hours 04/16/22 04/17/22 04/18/22 23:59 23:59 23:59 Intake Total 1200 / 1200 1000 / 1300 300 / 300 Balance 1200 / 1200 1000 / 1300 300 / 300 Lab / Micro Data Result Diagrams: 04/16/22 06:05 04/16/22 06:05 Micro: Microbiology 04/16/22 13:30 Sputum, Expectorated/Coughed Gram Stain - Final 04/16/22 13:30 Sputum, Expectorated/Coughed Respiratory Culture - Preliminary Appears to be normal respiratory jocelyn. Further studies to follow. 04/15/22 16:00 Mucosa - Nose Respiratory Panel (PCR) - Final 04/15/22 13:00 Nasal Secretion SARS-CoV-2 Antigen (Rapid) - Final Physical Exam Narrative Dyspnea on mild exertion. Mild productive cough. No fever Physical exam General: Alert, Oriented x3, Cooperative HEENT: Atraumatic, PERRLA, EOMI, Normocephalic Oral: Oral mucosa dry. No Gingival or Mucosal Lesions/ Ulcerations Neck: Supple, No JVD, Negative Carotid Bruits Lungs: Air entry diminished in all lung frederick. Diffuse wheezing and rhonchi. Dyspnea on mild exertion Cardiovascular: Regular rate, Regular Rhythm, Normal S1, Normal S2, No murmurs Abdomen: Bowel Sounds Present, Soft, Non Tender, Non-Distended : No renal angle tenderness. No suprapubic tenderness. Extremities: No edema, Capillary Refill Less than 3 Seconds Skin: No rashes, No breakdown Musculoskeletal: No Tenderness to Palpation of Joints or Extremities Neurological: Cranial nerves II-XII grossly intact, DTR 2+/4 and Symmetrical, Neuro grossly intact Psych/Mental Status: Flat affect Assessment & Plan Assessment/Plan (1) COPD exacerbation: (2) Hypoxia: PLAN: Plan The patient is a 76 y/o F w/ PMHx: Nonobstructive CAD, COPD with Chronic Hypoxic Respiratory Failure (3L), NOAM, GERD, Chronic normocytic anemia, RLS, Allergic rhinitis, Former tobacco use, History of cardiopulmonary arrest requiring tracheostomy at that time who presents to the [facility] ED on 04/15/22 with history of progressively worsening dyspnea with a mildly productive cough over the last week with no associated fevers. #1. Acute on chronic COPD exacerbation w/ Acute Hypoxia on Chronic Hypoxic Respiratory Failure: Will admit to MS, maintain on oxygen with wean as tolerated to home oxygen supplementation, continue ATC duonebs, PRN albuterol, IV methylprednisolone with prednisone transition, HOB, IS parameters, defer abx pending sputum Cx, full respiratory viral panel, procalcitonin. If any indication bacterial etiology will add abx therapy. Given presentation we will continue treatment of acute COPD exacerbation and if appropriate will obtain echocardiogram following this or may be done outpatient if appropriate at that time. 04/16: Patient is admitted on MedSur floor. Oxygen to keep pulse ox 90%. On bronchodilator, IV Solu-Medrol, Mucinex DM, incentive spirometry and Pep. Chest x-ray negative UA shows mild negative nuclear markings abdomen was suggestive of atelectasis, no definite focal infiltrate or consolidation. Respiratory panel negative. 04/17: Continue all treatment. Patient still has shortness of breath, dyspnea and needs more treatment here. 04/18: Solu-Medrol dose increased to 60 mg every 6 hourly total 3 to 4 days. Doxycycline 100 mg p.o. twice daily. If patient feels better, transition to prednisone 60 mg daily patient will need long taper. Anticipate discharge in 1 to 2 days. Patient glucose also high and expected to go high on high-dose of Solu-Medrol therefore started on Lantus 10 units subcutaneous daily and Accu-Cheks AC needs coverage with Humalog sliding scale. #2. Normocytic anemia: Admission hemoglobin 11.7, baseline appears more recently - however 08/15/2020 hemoglobin was 13 at that time. Hemoglobin 10.6 g%. 1/treatment: Hemoglobin is stable. #3. Nonobstructive CAD: continue aspirin, not on statin nor ANA inhibitor/ARB or beta-pillo therapy likely secondary to underlying pulmonary history and low normal BP, encourage continued outpatient follow-up. #4. Allergic rhinitis:continue patient home loratadine and fluticasone regimen. #5. Former tobacco use: Encourage continued tobacco cessation. #6. Restless leg syndrome: Per current list not on regimen, add Mirapex if necessary. #7. GERD: continue patient on PPI. #8. NOAM: BiPAP nightly. #9. DVT prophylaxis: SCDs, Lovenox. #10. CODE status: Discussed CODE status at length including difference between FULL code, DNR-CCA and DNR-CC status. Following discussions about the differences in these status especially given previous intubation needs and eventual tracheostomy with removal, requested Full Code status. Charges/Coding Visit Charges Inpatient E&M: 23182 Subs Hosp L2
[2022-04-18] MEDS: Insulin Glargine-YFGN 100 UNIT/ML Pen 10 UNIT SC (11:01)
[2022-04-18] MEDS: DULoxetine Hcl 60 MG Capsule PO ×2 (11:02→21:05)
[2022-04-18] MEDS: Loratadine 10 MG Tablet PO (11:02)
[2022-04-18] MEDS: Enoxaparin 40 MG/0.4 ML Syringe SC (11:03)
[2022-04-18] MEDS: Pantoprazole Sodium 40 MG Tablet PO ×2 (11:03→21:05)
[2022-04-18] MEDS: Doxycycline 100 MG CAPSULE PO ×2 (11:03→21:05)
[2022-04-18] MEDS: Ascorbic Acid 500 MG Tablet PO ×2 (11:04→21:05)
[2022-04-18] MEDS: Insulin Lispro 100 UNIT/ML INSULN.PEN SC ×2 (11:11→21:05)
[2022-04-18 11:40] LABS: Bedside Glucose 218 mg/dL (74-106)
[2022-04-18] MEDS: MethylPREDNISolone 125 MG/2 ML Vial 60 MG IV ×3 (12:44→23:56)
[2022-04-18 16:50] LABS: Bedside Glucose 120 mg/dL (74-106)
[2022-04-18] MEDS: Zolpidem Tartrate 5 MG Tablet PO (21:59)
[2022-04-19] LABS: Bedside Glucose 157 mg/dL (74-106)
[2022-04-19 03:38] VITALS: BP 120/81; PULSE 94; RESP 18; TEMP 36.9; O2SAT 95
[2022-04-19] MEDS: Ipratropium/Albuterol Sulfate 3 ML AMPUL.NEB INHALATION ×2 (05:47→11:24)
[2022-04-19 05:50] VITALS: PULSE 86; RESP 20; O2SAT 97
--- NOTE | 2022-04-19 05:52 | CPS ---
PEP was not done with @05:52 Tx due to patient being short of breath
[2022-04-19 06:25] LABS: Bedside Glucose 119 mg/dL (74-106)
[2022-04-19 07:22] VITALS: O2SAT 96; O2SAT 99
[2022-04-19 07:31] VITALS: BP 114/74; PULSE 95; RESP 18; TEMP 36.7; O2SAT 91
[2022-04-19] MEDS: DULoxetine Hcl 60 MG Capsule PO (07:37)
[2022-04-19] MEDS: predniSONE 20 MG Tablet 60 MG PO (07:37)
[2022-04-19] MEDS: Doxycycline 100 MG CAPSULE PO (07:37)
[2022-04-19] MEDS: Ascorbic Acid 500 MG Tablet PO (07:37)
[2022-04-19] MEDS: Aspirin E.C. 81 MG Tablet PO (07:37)
[2022-04-19] MEDS: Pantoprazole Sodium 40 MG Tablet PO (07:37)
[2022-04-19] MEDS: Loratadine 10 MG Tablet PO (07:37)
[2022-04-19] MEDS: Enoxaparin 40 MG/0.4 ML Syringe SC (07:38)
--- NOTE | 2022-04-19 11:21 | DCINST_ITS ---
Discharge Instructions Diet Discharge Diet: Low fat / Low cholesterol Activity Discharge Activity: Return to Normal Activity Dressing / Incision Call your doctor if you observe: Fever of 101 or Higher, Shortness of breath, Dizziness, Fainting spells, Swelling in the ankles, Chest pain and Increased palpitations (irregular heartbeat) Follow Up Care Test Results: Test results from this visit will be discussed in further detail at your follow- up appointment, if applicable. Discharge Plan Admission Admit Date/Time: 04/15/22 13:43 Attending Provider: Shabbir Wetzel Primary Care Provider: Jose Luis Culver Consulting Providers: Verona Adair ; Kirill Clark Discharge Orders/Prescriptions Prescriptions: New doxycycline monohydrate 100 mg Capsule 100 mg PO BID 3 Days Qty: 6 0RF prednisone 10 mg tablet 10 mg PO DAILY Qty: 52 0RF Rx Instructions: Take 4 tablets daily for 5 days then 3 tablets daily for 5 days then 2 tablets daily for 5 days then 1 tablet daily for 5 days then half tablet daily for 4 days Continued duloxetine 60 mg capsule,delayed release(DR/EC) 60 mg PO BID Ocuvite Adult 50 Plus 250-5-1 mg capsule 1 cap PO QAM cholecalciferol (vitamin D3) 50 mcg (2,000 unit) tablet 50 mcg PO DAILY famotidine 20 mg tablet 20 mg PO BID loratadine [Claritin] 10 mg tablet 10 mg PO DAILY PRN (Reason: ALLERGIES) aspirin 81 mg tablet,delayed release (DR/EC) 81 mg PO .qod ipratropium-albuterol 0.5 mg-3 mg(2.5 mg base)/3 mL solution for nebulization 3 ml INHALATION 4X/DAY Qty: 180 3RF Label Comments: BREATHING Rx Instructions: may use Q 2 hrs if needed albuterol sulfate [ProAir HFA] 90 mcg/actuation HFA aerosol inhaler 2 inh inhalation Q6H PRN (Reason: Wheezing) Qty: 8.5 3RF ascorbate calcium (vitamin C) 500 mg tablet 500 mg PO BID zolpidem 5 MG tablet 5 mg PO QHS PRN PRN (Reason: Sleep) Label Comments: sleep calcium carbonate [Calcium 600] 600 mg calcium (1,500 mg) Tablet 600 mg PO BID Trelegy Ellipta 200-62.5-25 mcg blister with device 1 inh inhalation DAILY Qty: 60 5RF levofloxacin 750 mg tablet 750 mg PO Q24H 7 Days Qty: 7 0RF Referrals / Follow Up: Connor Carrera MD [Med Staff - Active Staff] - Within 3 Months Jose Luis Culver MD [Primary Care Provider] - Within 1 Week Disposition Disposition (needs filled in before D/C Order can be placed): Home, Self Care
[2022-04-19 11:24] VITALS: PULSE 95; RESP 20; O2SAT 98
--- NOTE | 2022-04-19 12:10 | DS.PCM_ITS ---
Providers Date of Admission: 04/15/22 Primary Care Physician: Dr. Jose Luis Culver MD Reason For Visit: COPD EXACERBATION, HYPOXIA ON CHRONIC Diagnosis Discharge Diagnosis (1) COPD exacerbation: Status: Chronic Code(s): J44.1 - Chronic obstructive pulmonary disease with (acute) exacerbation (2) Hypoxia: Status: Acute Code(s): R09.02 - Hypoxemia Medications at Discharge Home Medications zolpidem 5 mg tablet 5 mg PO QHS PRN PRN Sleep 01/12/15 duloxetine 60 mg capsule,delayed release 60 mg PO BID ARTHRITIS 07/14/17 cholecalciferol (vitamin D3) 50 mcg (2,000 unit) tablet 50 mcg PO DAILY 08/13/20 famotidine 20 mg tablet 20 mg PO BID GERD 08/13/20 vit C,E,zinc,copper-[id number] 250 mg-lutein 5 mg-zeaxanthin 1 mg capsule (Ocuvite Adult 50 Plus) 1 cap PO QAM 08/13/20 aspirin 81 mg tablet,delayed release 81 mg PO .qod 11/20/20 ipratropium 0.5 mg-albuterol 3 mg (2.5 mg base)/3 mL nebulization soln 3 ml inhalation 4X/DAY COPD J44.9 #180 vials 04/10/21 albuterol sulfate 90 mcg/actuation aerosol inhaler (ProAir HFA) 2 inh inhalation Q6H PRN Wheezing #8.5 grams 10/29/21 fluticasone fur. 200 mcg-umeclid 62.5 mcg-vilant 25 mcg inhalat.powder (Trelegy Ellipta) 1 inh inhalation DAILY #60 ea 11/02/21 ascorbate calcium (vitamin C) 500 mg tablet 500 mg PO BID 12/11/21 levofloxacin 750 mg tablet 750 mg PO Q24H 7 days #7 tabs 04/12/22 loratadine 10 mg tablet (Claritin) 10 mg PO DAILY PRN ALLERGIES 04/12/22 calcium carbonate 600 mg calcium (1,500 mg) tablet (Calcium) 600 mg PO BID 04/15/22 doxycycline monohydrate 100 mg capsule 100 mg PO BID 3 days #6 caps 04/19/22 prednisone 10 mg tablet 10 mg PO DAILY #52 tabs 04/19/22 Hospital Course Operations None Procedures None Summary of Care Provided Minutes Spent on Discharge: 38 Hospital Course: Per HPI: The patient is a 76 y/o F w/ PMHx: Nonobstructive CAD, COPD with Chronic Hypoxic Respiratory Failure (3L), NOAM, GERD, Chronic normocytic anemia, RLS, Allergic rhinitis, Former tobacco use, History of cardiopulmonary arrest requiring tracheostomy at that time who presents to the [facility] ED on 04/15/22 with history of progressively worsening dyspnea with a mildly productive cough over the last week with no associated fevers, dyspnea worse with exertion with recent cardiology evaluation on Tuesday with similar symptoms at that time with echocardiogram ordered and pending however given ongoing symptoms contacted her pulmonary team and was encouraged to present to the ED however at that time she declined and was started on oral outpatient Levaquin with continued usage of her home aerosol nebulizer treatments but continued to significantly wheeze and became hypoxic on her chronic home oxygen supplementation prompting eventual ED evaluation.? She does report some mild events initial ED presentation with treatments but she has not been up and attempted to exert herself as of yet she notes.? Work-up in the ED included T96.2, heart rate 97, BP 26, initially 86% on 3 L nasal cannula with improvement to 97% on 4 L nasal cannula, CBC with WC 11.1, hemoglobin 11.7, MCV 92, platelet 360 with left shift, BMP with glucose 109 otherwise not marked appearing, troponin 4, chest x-ray with hyperinflation with mild degree increased linear markings at the left lung base suggestive of linear atelectasis.? In the ED patient administered DuoNeb therapies as well as Solu-Medrol 125 mg IV x1. Hospital Course: 1. Acute on chronic COPD exacerbation with acute on chronic hypoxic respiratory failure/NOAM?76-year-old female who has chronic hypoxic respiratory failure at 3 L presented with increased work of breathing and needing a higher level of oxygen. She was started on breathing treatment well as doxycycline and prednisone. She is improved today and is currently back to her baseline oxygen both with ambulation and at rest. She is feeling much better though not quite back to baseline. I discussed with her the possibility for discharge today she expressed understanding of the risk benefits of going home and she would like to go home today. Respiratory panel was negative for any virus and her sputum culture only grew Nikki. We will continue with doxycycline and a long prednisone taper on discharge. I do recommend that she follow-up with her PCP as well as her clinical quality rn on discharge. 2. Nonobstructive CAD, normocytic anemia, former tobacco use, restless leg syndrome, GERD are all chronic medical conditions which complicate her care. Her home medications were continued where appropriate Physical Exam Narrative General: Alert, Oriented x3, Cooperative, No apparent distress HEENT: Atraumatic, PERRLA, EOMI, Normocephalic Oral: Moist Mucosa Neck: Supple, No JVD Lungs: Diminished, Normal air movement, No rhonchi, bilateral wheeze, No rales Cardiovascular: Regular rate, Regular Rhythm, Normal S1, Normal S2, No murmurs Abdomen: Soft, Non Tender, Non-Distended, No Hepato-splenomegaly Extremities: No edema, Capillary Refill Less than 3 Seconds Skin: No rashes, No breakdown Musculoskeletal: No Tenderness to Palpation of Joints or Extremities Neurological: Cranial nerves II-XII grossly intact, Motor Exam 5/5 strength thro ughout, Sensory exam intact to light touch and pain Psych/Mental Status: Normal Affect, Appropriate Weight / BMI Weight Weight: 146 lb 9.718 oz Body Mass Index (BMI) 26.8 ABG / Lab / Microbiology Data Result Diagrams: 04/16/22 06:05 04/16/22 06:05 Laboratory: Laboratory Results - last 24 hr 04/18/22 16:27: POC Glucose 120 H 04/18/22 21:03: POC Glucose 157 H 04/19/22 06:07: POC Glucose 119 H Microbiology: Microbiology 04/16/22 13:30 Sputum, Expectorated/Coughed Gram Stain - Final 04/16/22 13:30 Sputum, Expectorated/Coughed Respiratory Culture - Final Presumptive C albicans 04/15/22 16:00 Mucosa - Nose Respiratory Panel (PCR) - Final 04/15/22 13:00 Nasal Secretion SARS-CoV-2 Antigen (Rapid) - Final D/C Instructions Discharge Diet: Low fat / Low cholesterol Call your doctor if you observe: Fever of 101 or Higher, Shortness of breath, Dizziness, Fainting spells, Swelling in the ankles, Chest pain and Increased palpitations (irregular heartbeat) Meaningful Use Info Meaningful Use Diagnoses (Choose all that apply): None applicable Discharge Plan Admission Admit Date/Time: 04/15/22 13:43 Attending Provider: Shabbir Wetzel Primary Care Provider: Jose Luis Culver Consulting Providers: Verona Adair ; Kirill Clark Discharge Orders/Prescriptions Prescriptions: New doxycycline monohydrate 100 mg Capsule 100 mg PO BID 3 Days Qty: 6 0RF prednisone 10 mg tablet 10 mg PO DAILY Qty: 52 0RF Rx Instructions: Take 4 tablets daily for 5 days then 3 tablets daily for 5 days then 2 tablets daily for 5 days then 1 tablet daily for 5 days then half tablet daily for 4 days Continued duloxetine 60 mg capsule,delayed release(DR/EC) 60 mg PO BID Ocuvite Adult 50 Plus 250-5-1 mg capsule 1 cap PO QAM cholecalciferol (vitamin D3) 50 mcg (2,000 unit) tablet 50 mcg PO DAILY famotidine 20 mg tablet 20 mg PO BID loratadine [Claritin] 10 mg tablet 10 mg PO DAILY PRN (Reason: ALLERGIES) aspirin 81 mg tablet,delayed release (DR/EC) 81 mg PO .qod ipratropium-albuterol 0.5 mg-3 mg(2.5 mg base)/3 mL solution for nebulization 3 ml INHALATION 4X/DAY Qty: 180 3RF Label Comments: BREATHING Rx Instructions: may use Q 2 hrs if needed albuterol sulfate [ProAir HFA] 90 mcg/actuation HFA aerosol inhaler 2 inh inhalation Q6H PRN (Reason: Wheezing) Qty: 8.5 3RF ascorbate calcium (vitamin C) 500 mg tablet 500 mg PO BID zolpidem 5 MG tablet 5 mg PO QHS PRN PRN (Reason: Sleep) Label Comments: sleep calcium carbonate [Calcium 600] 600 mg calcium (1,500 mg) Tablet 600 mg PO BID Trelegy Ellipta 200-62.5-25 mcg blister with device 1 inh inhalation DAILY Qty: 60 5RF levofloxacin 750 mg tablet 750 mg PO Q24H 7 Days Qty: 7 0RF Referrals / Follow Up: Connor Carrera MD [Med Staff - Active Staff] - Within 3 Months Jose Luis Culver MD [Primary Care Provider] - Within 1 Week Disposition Disposition (needs filled in before D/C Order can be placed): Home, Self Care Charges/Coding Visit Charges Inpatient E&M: 22031 Disch Hosp >30min
--- NOTE | 2022-04-19 12:49 | CASEMGMT ---
Pt does not qualify for increased oxygen rx.
== END 2022-04-19 13:00 | disposition home or self-care (01) | DRG 191 ==
LOC: ED 13:54 → MS3 13:57
PROVIDERS: Internal Medicine; Admitting Provider Family Medicine; Emergency Provider Emergency Medicine; PCP Internal Medicine; Visit Provider Family Medicine
DX: J44.1 Chronic obstructive pulmonary disease with (acute) exacerbation (principal); J96.11 Chronic respiratory failure with hypoxia; D64.9 Anemia, unspecified; G47.33 Obstructive sleep apnea (adult) (pediatric); I25.10 Atherosclerotic heart disease of native coronary artery without angina pectoris; G25.81 Restless legs syndrome; J30.9 Allergic rhinitis, unspecified; K21.9 Gastro-esophageal reflux disease without esophagitis; Z87.891 Personal history of nicotine dependence; Z79.82 Long term (current) use of aspirin
CPT/HCPCS: 36415; 71045; 80048; 80053; 82962; 84145; 84484; 85025; 87070; 87205; 87633; 87811; 93005; 94640; 94667; 94668; 94762; 99252; 99284; A4216; G0463

== ENCOUNTER → 2022-05-04 | Outpatient (CLI) | payer MEDICARE, OTHER, SELFPAY ==
--- NOTE | 2022-05-05 15:23 | ECHOD_ITS ---
Reason For Study: DYSPNEA/SOB Procedure This was a 2D Doppler, Color Flow transthoracic echocardiogram. The exam was of adequate technical quality. Exam performed in department. Left Ventricle Normal LV size. Left ventricular systolic function is normal. The estimated ejection fraction is 65 %. No evidence for diastolic dysfunction. No regional wall motion abnormalities noted. Right Ventricle Normal RV size. Normal systolic function. Atria Normal left atrium. Normal right atrium. Intact atrial septum. Mitral Valve There is no mitral annular calcification. Normal mitral valve. Trivial mitral valve insufficiency. Tricuspid Valve Normal tricuspid valve. Trivial tricuspid valve insufficiency. Unable to estimate RV systolic pressure due to insufficient tricuspid regurgitant envelope. Aortic Valve Trisinus/trileaflet aortic valve. Normal aortic valve. Pulmonic Valve The pulmonic valve is not well visualized. Trivial pulmonic valve insufficiency. Great Vessels Normal sized aortic root. Pericardium/Pleural No pericardial effusion. MMode/2D Measurements & Calculations LVIDd: 4.0 cm IVSd: 0.94 cm Ao root diam: 3.4 cm LVIDs: 2.6 cm LVPWd: 0.99 cm LA dimension: 3.3 cm FS: 33.8 % LAV(MOD-bp): 40.6 ml LVAd ap4: 22.2 cm2 LVAd ap2: 17.9 cm2 LAV(MOD-bp) Indexed: 24.4 ml/m2 LVLd ap4: 7.5 cm LVLd ap2: 7.0 cm LAV(MOD-sp2): 38.7 ml EDV(MOD-sp4): 56.1 ml EDV(MOD-sp2): 39.5 ml LAV(MOD-sp4): 38.6 ml EDV(sp4-el): 55.8 ml EDV(sp2-el): 38.8 ml LVAs ap4: 10.3 cm2 LVAs ap2: 8.0 cm2 LVLs ap4: 5.6 cm LVLs ap2: 5.1 cm ESV(MOD-sp4): 16.3 ml ESV(MOD-sp2): 11.6 ml ESV(sp4-el): 15.9 ml ESV(sp2-el): 10.7 ml EF(MOD-sp4): 70.9 % EF(MOD-sp2): 70.5 % EF(sp4-el): 71.6 % SV(MOD-sp4): 39.8 ml SV(MOD-sp2): 27.8 ml SV(sp4-el): 40.0 ml LA A4 area: 15.1 cm2 RA A4 area: 11.9 cm2 Time Measurements MV dec time: 0.21 sec Doppler Measurements & Calculations MV E max barry: 61.4 cm/sec Lat Peak E' Barry: 10.6 cm/sec Med Peak E' Barry: 7.4 cm/sec MV A max barry: 87.8 cm/sec E/E' lat: 5.8 E/E' med: 8.3 MV E/A: 0.70 Ao V2 max: 170.1 cm/sec LV V1 max: 123.6 cm/sec Ao max P.6 mmHg LV V1 max P.1 mmHg Ao V2 mean: 112.8 cm/sec LV V1 mean P.9 mmHg Ao mean P.8 mmHg LV V1 mean: 78.5 cm/sec Ao V2 VTI: 31.3 cm LV V1 VTI: 21.8 cm AV (velocity ratio): 0.70 ECHO/Echo Complete Interpretation Summary Left ventricular systolic function is normal. The estimated ejection fraction is 65 %. Trivial mitral valve insufficiency. Trivial tricuspid valve insufficiency. Trivial pulmonic valve insufficiency. Unable to estimate RV systolic pressure due to insufficient tricuspid regurgita nt envelope. No evidence for diastolic dysfunction. Ordering Physician: Mitul Kumar Referring Physician: Jose Luis Culver Performed By: Val Hernandez, PENNY, RVT
== END | disposition home or self-care (01) ==
LOC: CVS 10:41
PROVIDERS: PCP Internal Medicine; Referring Provider Internal Medicine Cardiovascular Disease; Visit Provider Internal Medicine Cardiovascular Disease
DX: G47.33 Obstructive sleep apnea (adult) (pediatric) (principal); J44.9 Chronic obstructive pulmonary disease, unspecified; I27.20 Pulmonary hypertension, unspecified; I25.10 Atherosclerotic heart disease of native coronary artery without angina pectoris; I25.84 Coronary atherosclerosis due to calcified coronary lesion; R06.00 Dyspnea, unspecified
CPT/HCPCS: 93306

== ENCOUNTER → 2022-08-05 | Outpatient (CLI) | payer MEDICARE, OTHER, SELFPAY ==
--- NOTE | 2022-08-05 09:28 | PCM.PR.HP ---
History of Present Illness Arrival date:: 08/05/22 Arrival time:: 09:29 Date of Referral:: 07/22/22 Date of Evaluation: 08/05/22 Referring Physician: Dr. Connor Carrera Primary Diagnosis: COPD Gold III: Severe History of Present Illness: COPD [facility] Breathless Scale: When is the patient short of breath? Y/N Grade: Description of Breathlessness: 0 I only get breathless with strenuous exercise. 1 I get short of breath when hurrying on level ground or walking up a slight hill. 2 On level ground, I walk slower than people of the same age because of breathless, or have to stop for breath when walking at my own pace. 3 I stop for breath after walking 100 yards or after a few minutes on level ground. 4 I am too breathless to leave the house or I am breathless when dressing. Respiratory Problems: Yes: Fatigue, Wheezing, Able to Speak in Full Sentences, Dizziness, Anxiety, Panic, Dyspnea with Activity No: Chest Pain, Ankle Swelling, Hoarseness, Dyspnea Lying Down Flat, Cough with Secretions - Secretions Thick:: No Thin:: No Hx of Sleep Apnea: Yes Do you snore loudly (louder than talking or can be heard through closed doors)?: Yes Do you often feel tired/ fatigued/ sleepy during daytime?: Yes - Diagnosed with Obstructive Sleep Apnea Has anyone observed you stop breathing during sleep?: Yes History of Hypertension (for STOP score): Yes STOP Results: Positive Home Medications: Home Medications zolpidem 5 mg tablet 5 mg PO QHS PRN PRN Sleep 01/12/15 duloxetine 60 mg capsule,delayed release 60 mg PO BID ARTHRITIS 07/14/17 famotidine 20 mg tablet 20 mg PO BID GERD 08/13/20 aspirin 81 mg tablet,delayed release 81 mg PO .qod 11/20/20 albuterol sulfate 90 mcg/actuation aerosol inhaler (ProAir HFA) 2 inh inhalation Q6H PRN Wheezing #8.5 grams 10/29/21 loratadine 10 mg tablet (Claritin) 10 mg PO DAILY PRN ALLERGIES 04/12/22 doxycycline monohydrate 100 mg capsule 100 mg PO BID 3 days #6 caps 04/19/22 prednisone 10 mg tablet 10 mg PO DAILY #52 tabs 04/19/22 albuterol sulfate 2.5 mg/3 mL (0.083 %) solution for nebulization 2.5 mg (3 mL) inhalation Q4H PRN Sob &/Or Wheezing #180 mL 05/11/22 ipratropium bromide 0.02 % solution for inhalation 2.5 ml inhalation Q6H PRN shortness of breath or wheezing #150 mL 05/11/22 azithromycin 250 mg tablet 250 mg PO DAILY #36 tabs 06/17/22 fluticasone fur. 200 mcg-umeclid 62.5 mcg-vilant 25 mcg inhalat.powder (Trelegy Ellipta) 1 inh inhalation DAILY #60 ea 07/15/22 Allergies/Adverse Reactions: Allergies hydrocodone [From Vicodin] Allergy (Mild, Verified 06/17/22 13:16) Nausea ropinirole Allergy (Verified 06/17/22 13:16) hives azithromycin [From Zithromax] Adverse Reaction (Verified 06/17/22 13:16) Other felt flush/headache/just didnt feel right neck pain Medical Utilization Do you use a peak flow meter at home?: No Do you use a spacer device with your inhalers?: Yes Number of hospital visits in the last year?: 2 Number of emergency room visits in the last year?: 2 Do you see your physician on a regular schedule?: Yes How often?: 3 to 6 months Advanced Directives - Advanced Directives Power of Wage And [employer] Investigator: Yes Living Will: Yes Advance Directives Information Provided: No Advance Directives on File: No DNR Order?:: No - MOLST See MOLST form: No Past Medical History - Covid-19 Screening Fever: No Unexplained muscle aches: No Current respiratory symptoms: Yes - Continuous dyspnea due to COPD Upper respiratory infections symptoms: No Gastro-intestinal symptoms: Yes - H/O GERD Ciw-Kpce-Apnpgo symptoms: No Has tested positive for COVID-19 in last 30 days: No Date of testin08/05/22 - Two of the vaccinations Had contact w/person w/symptoms or Covid-19 (+) last 14 days: No Has High Risk Exposures ID'd by Health dept/Inf Control team: No 65 years or older:: Yes Lives in Assisted Living facility:: No Has a chronic lung disease or moderate to severe asthma:: Yes Has a serious heart condition:: Yes Immunocompromised:: No Severely obese (Body Mass Index of 40 or higher):: No Diabetic:: No Has chronic kidney disease undergoing dialysis:: No Has liver disease:: No Medical History: Past Medical History (Last Reviewed 06/17/22 @ 13:23 by Amelia Lam GROUND CONTROL APPROACH TECHNICIAN, GROUND CONTROL APPROACH TECHNICIAN-C) Chronic hypoxemic respiratory failure J96.11 COPD exacerbation J44.1 Coronary artery calcification I25.10, I25.84 GERD (gastroesophageal reflux disease) K21.9 History of sudden cardiac arrest Onset Date: 01/11/15 Z86.74 Muscular deconditioning R29.898 NOAM (obstructive sleep apnea) G47.33 18/12 cm water With 1 LPM oxygen bleed Pulmonary valve insufficiency 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.1 Seasonal allergies J30.2 Stage 3 severe COPD by GOLD classification J44.9 FEV1 46% of predicted Surgical History: Past Surgical History (Last Reviewed 06/17/22 @ 13:23 by Amelia Lam GROUND CONTROL APPROACH TECHNICIAN, GROUND CONTROL APPROACH TECHNICIAN-C) History of colonoscopy Z98.890 History of laparoscopic cholecystectomy Z98.890, Z90.49 History of right and left heart catheterization (LHC) Onset Date: ~08/26/20 Z98.890 RIGHT HEART ASSESSMENT Thermal CO: 4.4 Thermal CI: 2.75 Vadim CO: 6.34 Vadim CI: 3.96 PW: 18/11 10 PA: 33/5 19 RV: 34/2 8 RA: 8/7 6 PVR: 164 SVR: 1673 Right Heart pressures - elevated (mild elevation of the RVSP and PASP) Pulmonary Hypertension Mild Intracardiac shunting: None LEFT MAIN: Angiographically normal; LEFT ANTERIOR DESCENDING ARTERY: Angiographically normal; CIRCUMFLEX ARTERY: Angiographically normal; RIGHT CORONARY ARTERY: Mild calcification Mild luminal irregularities; MID RCA: Mild calcification; AORTIC ROOT: Angiographically normal per cardiac cath Dr. Kumar 08/26/20 History of tracheostomy Z98.890 1969 Status post right inguinal hernia repair Z98.890, Z87.19 04/20/17 Family History: Family History (Last Reviewed 06/17/22 @ 13:23 by Amelia Lam GROUND CONTROL APPROACH TECHNICIAN, GROUND CONTROL APPROACH TECHNICIAN-C) Father Lung disease Asthma Brother Asthma Heart disease Mother Arthritis Sister Lung Cancer Brother CAD (coronary artery disease) Cardiac pacemaker in situ - Current/ Previous Services Pulmonary Rehab:: Yes - Comments Comments: aprox in 2015 Social History - Smoking History Smoking Status: Former smoker - Quit smoking in 2004 Hx Tobacco Use: No Hx Smoking Exposure: No - Alcohol Use Alcohol Usage: No - Substance Abuse Hx Substance Use: No - Occupation Occupation (List type of work in comments):: Retired - Hobbies, Recreation, Social Activities Hobbies: Reading, Watch TV, Other - games with family Recreational Activities: I am able to engage in a few activities - has to do ADLs in stages with rest breaks. Functioning ADL/IADL - Current Ability Current Ability: Independent Self-Care (e.g.,grooming, dressing, & bathing), Independent Ambulation, Independent Transfer, Independent Household tasks (e.g., light meal prep, laundry, shopping) - Pt Functioning Prior to Problem Prior Functioning: Self-Care (e.g.,grooming, dressing, & bathing): Independent, Ambulation: Independent, Transfer: Independent, Household tasks (e.g., light meal prep, laundry, shopping): Independent Social Environment - Status Marital Status: - Current Living Arrangements Living Environment:: Alone - Children How many children do you have?: 3 Do any of your children live nearby?: Yes - Safety Do you feel safe in your surroundings?: Yes Review of Systems Review of Systems: Right click = Denies ([place]). Left click = Reports ([place]) Respiratory: Reports: SOB upon Exertion, Wheezing, Appetite, Normal - Prednisone, Dizziness/Lightheadedness, Fatigue, Sleep, Normal. Denies: Cough, SOB at Rest, Sputum production, Sexual changes Is Patient Pain Free?: Yes Pain Location: lower extremity - arthritis type pain. Associated with weather Pain Level: 06/11 Risk Factor Assessment - Vital Signs Temperature: 98.2 F Pulse Rate: 91 Pulse Rhythm: Regular Respiratory Rate: 22 Pulse Ox: 95 - 2 liters Blood Pressure: 125/69 - Diabetes Nutrition Referral for Diabetes: No - Obesity Height: 5 ft 1 in Weight:: 149 lb Weight in Pounds: 149.0 lbs Weight Source: Estimated by Patient Body Mass Index (BMI): 28.1 Nutritional Referral for Obesity: No - Physical Activity Physical Inactivity: None - Risk Stratification Risk Guidelines: Lowest Risk: Risk Factor for Smoking, Risk Factor for Dyslipidemia, Risk Factor for Diabetes, Risk Factor for Hypertension - 125/69, Risk Factor for Depression, Moderate Risk: Risk Factor for Obesity - 28, Risk Factor for Sedentary Lifestyle - does very little except for light housework/daily ADLs Motivation - Motivation to Participate On a scale of 1 to 10, how prepared are you to commit to attending program?: 8 What do you see as barriers to successfully being able to complete the program?: not sure if able to do it What do you see as the benefits of succesfully completing the program? In other words, what do you hope to get out of participating in the program?: breath better, get stronger Are there issues you are dealing with that will interfere with completing the program?: no Do you have a spouse or signficant other, family or friends who will help support you to complete the program?: Yes Diagnostic Data Review - Pulmonary Function Test FEV1:: 0.72 FVC:: 1.84 FEV1/FVC%:: 39
--- NOTE | 2022-08-05 09:29 | PCM.PR.TP ---
General Information2 - General Information Admitting Diagnosis: COPD Secondary Diagnosis: Pulmonary HTN, [place] CHF, NOAM, CAD calcification, Sudden Cardiac Arrest 01/11/2015, GERD Gold Classification:: GOLD 3: Severe - PFT FEV1:: 0.72 FVC:: 1.84 FEV1/FVC%:: 39 - Personal Learning Style/Barriers Personal Learning Style:: Audio/Visual, Written Barriers to Learning: Vision impaired, Hearing impaired Stage of change r/t lifestyle modifications: Prepared Educational Classes AL: Living with Chronic Lung Disease: Initial Assessment, Breathing Retraining: Initial Assessment, Exercise: Initial Assessment, Preventing infection: Initial Assessment, Oxygen therapy: Initial Assessment - Education/Goals Individual Counseling: Initial Assessment: High Blood Pressure, Overweight/Obesity - 28, Sedentary Lifestyle AL Patient Goals: Increase muscle strength: Initial Assessment, Experience less dyspnea: Initial Assessment, Improve energy level: Initial Assessment, Participate in home exercise: Initial Assessment, Improve the ability to cope with ADLs: Initial Assessment, Control panic/anxiety: Initial Assessment, Improve my quality of life: Initial Assessment, Reduce Stress/relaxation techniques: Initial Assessment Exercise - Initial Assessment - Visit Date of Eval: 08/05/22 Session Number:: 0 - pre-pulmonary rehab evaluation - Problem/Goals Problems: Deconditioning, No regular exercise, Knowledge deficit exercise guidelines, Knowledge deficit exercise safety Goals:: Aerobic exercise 30-60 mins x 12 weeks [36 sessions] - Physician Prescribed Exercise Modalities: Treadmill, NuStep, SciFit Intensity: 60-80% of age predicted maximum heart rate reserve Current METSs:: 3.0 Target HR:: 108 - THRR 86-108 Resting Blood Pressure: 125/69 EKG Type: Normal Sinus Rhythm - Plan Plan and Plan to Review:: Benefits of exercise, Core components of exercise, How to measure dyspnea level, How to monitor dyspnea level, Exercise intensity, Exercise safety guideline, Home exercise guidelines, Amy: 3-4/11-13 Home Exercise Mode: Walking - increase daily activity sit < 3 hours daily. Nutrition/Wt Mgmt - Initial - Visit Date of Eval: 08/05/22 Session Number:: 0 - Pre-Pulmonary Rehab evaulation - Problems/Goals Problems: Overweight Goals: BMI 21-25, Wt Loss 1-2 lbs per week - Weight Management Knowledge Deficit Management of:: Overweight Admit Height:: 5 ft 1 in Admit Weight:: 149 lb Admit BMI:: 28.1 - Intervention Referral to dietitian:: Yes - Medical Nutrition Therapy Will attend diet classes:: Yes Intervention/Plan: Instruct on ideal BMI & set weight loss goal w/patient, Assist pt to ID & incorporate diet changes for weight loss by S9, Refer to Structured Weight Loss program as appropriate, Encourage goal of using 250-300dcal per session for weight loss - Plan Nutrition Plan: Yes Nutrition education class:, Yes Weight control education class: Psychosocial - Initial Assess - Visit Date of Eval: 08/05/22 Session Number:: 0 - Pre-Pulmonary Rehab Evaluation - Problems/Goals History of Emotional Disorders: Anxious, Depression Self-reported stressors: Medical/Health - Psychosocial Test Tool Used:: Pulmonary QOL, PHQ-9 Questionnaire - Referral to Behavioral Health PS - Interventions: Yes Attend Stress Management Classes, No Referral to Behavioral Health if PHQ-9 score >9:, No Referral to [facility], No Referral to Physician if PHQ-9 if score is 5-9: - Intervention/Plan: See List Interventions/Plan:: Assess stressors,coping strategies & signs of derpression on admission, Instruct/assist pt to develop coping & personal stress Mgt strategies, Instruct patient to recognize signs & symptoms of depression, Instruct patient to recog Oxygen & Oxygen Titration Init - Visit Date of Eval: 08/05/22 Session Number:: 0 - Pre-Pulmonary Rehab evaluation - Initial Assessment Oxygen on Admission: Continuous home use SpO2:: 95 Port O2:: 2 liters Patient Reports:: No cough - Goal Oxygen & Oxygen Tritration Goals: Effective hypoxemia control, Uses O2 as Rx'd/safely - Plans Plan: Monitor SpO2 rest & with exercise, Train appropriate O2 use with exercise, Train O2 safety & systems Reviewed prescribed medications:: Purpose, Schedule, Side effects, Importance of compliance Instruct correct technique/timing & care:: MDI, DPI, Nebulizer, Return demo use of inhaler Bronchial Hygiene Plan: Vibratory PEP device, Hydration, Hand hygiene, When to call MD, Signs/symptoms to report: Core Components - Initial - Visit Date of Eval: 08/05/22 Session Number:: 0 - Pre-Pulmonary Rehab evaluation - Hypertension Hypertension Diagnosis:: Hypertension ICD-10 I10 BP: 125/69 [employer] Hypertension Guidelines: [place] [employer] Hypertension Guidelines. Normal BP Less than 120/80. Elevated BP 120/80. Hypertension Stage 1: BP 130-139/80-89. Hypertesnion Stage 2: BP 140 or higher/90 or higher. Hypertension Crisis: BP higher than 180/120 Blood Pressure: 125/69 Low Sodium diet: No Outcomes/Goals: Able to verbalize/achieve optimal blood pressure <130/80, Incorporates diet changes & exercise for blood pressure control by DC - Tobacco - Initial Assessment Tobacco Program Goals: Complete smoking cessation. Attend education classes. Improve Knowledge Test score Do you use smokeless tobacco?: No Smoking Cessation Referral:: No Individual Education/Counseling:: No Education Schedule Given:: No Gave Education Materials For:: Pulmonary Disease, Risk Factors, Breathing Techniques, Medical Compliance, Pulmonary A&P, Exacerbation Signs & Symptoms, Stress & Relaxation - Exacerbation Mgmt & Airway Clearance Problems:: Hypoxemia Hypoxemia Goals:: Hypoxemia managed, Port system, Using O2 as Rx's safely Bronchial Hygiene Problems:: Ineffective secretion clearance, Respiratory infection Prevention/Management Goals: Pt demonstrates effective cough, effective secretion clearance., Pt describes signs and symptoms of infection. Patient Reports:: No cough Plan: Monitor SpO2 rest & with exercise, Train appropriate O2 use with exercise, Train O2 safety & systems Instruct correct technique/timing & care:: MDI, DPI, Nebulizer, Return demo use of inhaler Bronchial Hygiene Plan: Vibratory PEP device, Hydration, Hand hygiene, Evaluate sputum, Signs/symptoms to report: - Medication Interventions/plans: Instruct on medication effects & side effects, Review medication list w/patient every two weeks, Instruct importance of taking meds as ordered & assist problem solving Medication Goals: Correct technique/timing & care of MDI, DPI, nebulizer, and spacer. Does pt report taking home meds as prescribed?: Yes Medications: Yes MDI, Yes DPI, Yes NEB, No Spacer Reviewed prescribed medications:: Purpose, Schedule, Side effects - Diabetes Diabetes:: No - Heart Failure Ejection fraction %:: 65 - 05/04/2022 Documenting weight daily for CHF: No Core Components - 30 DAYS Core Components - 60 DAYS Core Components - 90 DAYS Core Components - Final Patient Health Questionnaire Initial Assessment 1. Little interest or pleasure in doing things: More than half the days 2. Feeling down, depressed, or hopeless: More than half the days 3. Trouble falling or staying asleep, or sleeping too much: Not at all 4. Feeling tired or having little energy: More than half the days 5. Poor appetite or overeating: More than half the days 6. Feeling bad about yourself -- or that you are a failure or have let yourself or your family down: Several days 7. Trouble concentrating on things, such as reading the newspaper or watching television: Several days 8. Moving or speaking so slowly that other people could have noticed. Or the opposite - being so fidgety or restless that you have been moving around a lot more than usual: Not at all 9. Thoughts that you would be better off , or of hurting yourself in some way: Not at all How difficult have these problems made it for you to do your work, take care of things at home, or get along with other people?: Very difficult Total Score: 10 Knowledge Questionaire (BCKQ) - Information Information: [place] COPD Knowledge Questionnaire (BCKQ) This questionnaire is designed to find out what you know about your lung problem. It should be completed without help form anyone else. This usually takes between 10 and 20 minutes. Your answers will help us to find out what information you need to help you to understand and manage your lung condition. [place] which you think is the correct answer. - Questions b. COPD can only be confirmed by breathing tests: False c. In COPD ther is usually gradual worsening over time: True d. In COPD oxygen levels in the blood are always low: True e. COPD is usually in people less than 40 years old: False [place] than 80% of COPD cases are caused by cigarette smoking: True b. COPD can be caused by occupational dust exposure: True c. Longstanding asthma can develop into COPD: Don't know d. COPD is commonly an inherited disease: False e. Women are less vunerable to the effects of cigarette than men: False a. Swelling of the ankles is common in COPD:: True b. Fatigue [tiredness] is common in COPD: True c. Wheezing is common in COPD: True d. Crushing chest pain is common in COPD: False e. Rapid weight loss is common in COPD: False a. Severe breathlessness prevents travel by air: False b. Breathlessness can be worsened by eating large meals: True c. Breathlessness means that your oxygen levels are low: True d. Breathlessness is a normal response to exercise: Don't know e. Breathlessness is primarily caused by a narrowing of the bronchial tubes: True a. Coughing phlegm is a common symptom in COPD: True b. Clearing phlegm is more difficult if you get dehydrated: True c. Bronchodilator inhalers can help clear phlegm: False d. Phlegm causes harm if swallowed: False e. Clearing phlegm can be assisted by breathing exercises: True a. Chest infections often cause coughing of blood: False b. Chest infection phlegm usually becomes coloured (ylw/grn): True cExerbations (episodes of worsening) can occur in the absence of chest infection: True d. Chest infections are always accompanied by a high temperature: False e. Steroid tablets should be taken whenever there is an exacerbation: True aWalking excercises better than breathing to improve fitness: False b. Exercise should be avoided as it strains the lungs: False c. Exercise can help maintain your bone density: True d. Exercise helps relieve depression: True e. Exercise should be stopped if it makes you breathless: False a. Stopping smoking will reduce the risk of heart disease: True b. Stopping smoking will slow down further lung damage: False c. Stopping smoking is pointless as the damage is done: False d.Stopping smoking usually results in improved lung function: True eNicotine replacement therapy only available on prescription: Don't know a. A flu jab is recommended every year: True b. You can get flu from having a flu jab: False c. You can only have a flu jab if you are 65 or over: False d. A pneumonia jab protects against all forms of pneumonia: True e.You can have a pneumonia jab and a flu job on the same day: Don't know a. Bronchodilators act quickly (within 10 minutes): False b. Both short & long acting bronchodilators can be taken on the same day: True c. Spacers (volumatic,nebuhaler,serochamber)should be dried w/atowel after washing: False d. A spacer device increases the medication to the lungs: True e. Tremor may be a side effect of bronchodilators: True a. To be effective, the course should last at least 10 days: False b. Excessive use of antibiotics can cause resistant bacteria (germs): False c. Antibiotics will clear all chest infections: False d. Antibiotic treatment is necessary for an exacerbation (worsening) however mild: True e. Seek advice if antibiotics cause severe diarrhoea: True a. Steroid tablets help strengthen muscles: True b. Steroid tablets should be avoided if there is a chest infection: False c. The risk of long-term side effects due to steroids is less w/short courses then w/continous treatment: False dIndigestion is common side effect from using steroid tablet: False e. Steroid tablets can increase your appetite: True a. Inhaled steroids should be stopped if you are given steroid tablets: False bSteroid inhalers can be used for rapid relief breathlessnes: True c. Spacer devices reduce the risk of getting thrush in the mouth: Don't know d.Steroid inhaler should be taken before your bronchodilator: True e. Inhaled steroids improve lung function in COPD: False COPD Assessment Test [CAT] - Questions Never cough = 0, Cough all the time = 5: 3 No phlegm = 0, Chest full of phlegm = 5: 3 No chest tightness = 0, Chest very tight = 5: 3 No breathless w/exertion = 0, Very breathless w/exertion = 5: 5 No limitations w/activity = 0, Very limited w/activity = 5: 5 Confident leaving home = 0, Not at all confident = 5: 3 Sleep soundly = 0, Don't sleep soundly = 5: 1 Self-Efficacy Initial Assessment We would like to know how confident you are in doing certain activities. Please select your confidence level for:: Select your confidence level for the following using the scale 1-10 where 1 is not at all confident and 10 is totally confident. Your score is the average of all 6 responses. Fatigue: How confident are you that you can keep the fatigue caused by your disease from interfering with the things you want to do? Select Number: 3 Physical Discomfort or Pain: How confident are you that you can keep the physical discomfort or pain of your disease from interfering with the things you want to do? Select Number: 3 Emotional Distress: How confident are you that you can keep the emotional distress caused by your disease from interfering with the things you want to do? Select Number: 4 Other Symptoms or Health Problems: How confident are you that you can keep other symptoms or health problems from interfering with the things you want to do? Select Number: 4 Different Tasks and Activities: How confident are you that you can do the different tasks and activities needed to manage your health condition so as to reduce your need to see a doctor? Select Number: 2 Medication: How confident are you that you can do things other than just taking medication to reduce how much your illness affects your everyday life? Select Number: 6 Total Score:: 3 Nutrition Survey - Nutrition Survey Initial Have you lost >10 lbs over the past 2 months without trying?: No Are you following a special diet at home for diabetes, low fat, or low salt?: No Are you interested in meeting with a dietitian for help understanding your diet?: No Do you eat less than 3 meals a day?: No Do you eat fatty meats (fregoso, sausage, ribs, etc), fried foods, desserts, large amounts of salad dressings, margarine, butter, or cheese most days?: No Do you have food allergies? [Enter types in comment field]: No Do you eat in restaurants more than 3 times a week?: No Do you season food with salt, seasoning salt, or garlic salt?: Yes Do you used canned, boxed, frozen meals, or soups, seasoning packets?: No Total Score:: 1
[2022-08-05 10:07] VITALS: BP 125/69; PULSE 91; RESP 22; TEMP 36.8; O2SAT 95; BMI 28.1
[2022-08-05 10:13] VITALS: BP 125/69; O2SAT 95; BMI 28.1
== END | disposition home or self-care (01) ==
LOC: PR 09:17
PROVIDERS: PCP Internal Medicine; Referring Provider Internal Medicine Critical Care Medicine; Visit Provider Internal Medicine Critical Care Medicine
DX: J44.9 Chronic obstructive pulmonary disease, unspecified (principal); I27.20 Pulmonary hypertension, unspecified; I50.9 Heart failure, unspecified; G47.33 Obstructive sleep apnea (adult) (pediatric); I25.10 Atherosclerotic heart disease of native coronary artery without angina pectoris; K21.9 Gastro-esophageal reflux disease without esophagitis; Z86.74 Personal history of sudden cardiac arrest; E66.3 Overweight; F32.A Depression, unspecified; Z99.81 Dependence on supplemental oxygen

== ENCOUNTER 2022-09-01 13:00 | Outpatient (RCR) | payer MEDICARE, OTHER, SELFPAY | END 2022-09-01 23:59 | LOC: PR 13:00 | PROVIDERS: PCP Internal Medicine; Referring Provider Internal Medicine Critical Care Medicine; Visit Provider Internal Medicine Critical Care Medicine | DX: J44.9 Chronic obstructive pulmonary disease, unspecified (principal); I37.1 Nonrheumatic pulmonary valve insufficiency; R06.00 Dyspnea, unspecified; I27.20 Pulmonary hypertension, unspecified | CPT/HCPCS: 97150; 94626 ==

== ENCOUNTER 2022-09-27 13:00 | Outpatient (RCR) | payer MEDICARE, OTHER, SELFPAY ==
--- NOTE | 2022-09-06 08:56 | PCM.PR.TP ---
Exercise - 30-Day Assessment - Visit Date of Eval: 09/06/22 Session Number:: 9 - Physician Prescribed Exercise Modalities: Treadmill, Biodyne, NuStep Intensity: 60-80% of age predicted maximum heart rate reserve Aerobic Exercise [30-60 min 3-7x/week]:: Progressing Amy-13 Current METSs:: 3.0 Target HR:: 108 - THRR 86-108 Current RPD:: 3 Maximum Exercise HR:: 113 Resting Blood Pressure: 112/60 Maximum Exercise Blood Pressure: 132/68 Minimum SpO2 with exercise: 91 EKG Type: NSRto sinus tach with rare PAC - Home Exercise Home Exercise:: No Mode: Walking - patient encouraged to increase walking 30 minutes twice daily using her oxygen at 4 liters Nutrition/Wt Mgmt - 30-Day - Visit Date of Eval: 09/06/22 Session Number:: 9 - Weight Management Height: 5 ft 1 in Weight:: 149 lb BMI: 28.1 Weight Goals Progress:: Progressing Psychosocial - 30-Day - Visit Date of Eval: 09/06/22 Session Number:: 9 - Psychosocial Test Tool Used:: PHQ-9 Questionnaire Referred to MD for counseling:: No - Referral to Behavioral Health PS - Interventions: Yes Attend Stress Management Classes, No Referral to Behavioral Health if PHQ-9 score >9:, No Referral to [facility], No Referral to Physician if PHQ-9 if score is 5-9: - Plan Interventions/Plan:: Assess stressors,coping strategies & signs of derpression on admission, Instruct/assist pt to develop coping & personal stress Mgt strategies, Instruct patient to recognize signs & symptoms of depression, Instruct patient to recog Oxygen & Oxygen Titration 30D - Visit Date of Eval: 09/06/22 Session Number:: 9 - Reassessment Reassessment- 30 Days: Demonstrate knowledge of O2 Rx at rest & w/exercise, Using O2 as Rx'd, Has home O2 as Rx'd, Uses port O2 as Rx'd Breath Sounds:: Diminished, Insp. & Exp. Wheezing SpO2:: 94 - when at rest on 3 liters Core Components - Initial Core Components - 30 DAYS - Visit Date of Eval: 09/06/22 Session Number:: 9 - Hypertension Hypertension Diagnosis:: Hypertension ICD-10 I10 Resting Blood Pressure:: 112/60 [place] [employer] Hypertension Guidelines: [place] [employer] Hypertension Guidelines. Normal BP Less than 120/80. Elevated BP 120/80. Hypertension Stage 1: BP 130-139/80-89. Hypertesnion Stage 2: BP 140 or higher/90 or higher. Hypertension Crisis: BP higher than 180/120 Peak Exercise Blood Pressure:: 132/68 Change in medication: No Outcomes/Goals: Able to verbalize/achieve optimal blood pressure <130/80, Incorporates diet changes & exercise for blood pressure control by DC Interventions/plan: Instruct on optimal blood pressure, hypertension & medications, Instruct on effects of sodium, alcohol, stress, exercise &hypertension 30 day Reassessments:: Met - Exacerbation Mgmt & Airway Clearance Reassessment: Demonstrates knowledge of O2 Rx at rest, Demonstrates knowledge of O2 Rx with exercise, Using O2 as prescribed, Has home O2 as prescribed, Uses port O2 as prescribed - Medication Medication list reviewed:: Yes Taking medications 100% of the time:: Met - Diabetes Diabetes:: No - Heart Failure Documenting weight monie: No Core Components - 60 DAYS Core Components - 90 DAYS Core Components - Final Patient Health Questionnaire 30-Day Re-eval Assessment 1. Little interest or pleasure in doing things: Several days 2. Feeling down, depressed, or hopeless: Several days 3. Trouble falling or staying asleep, or sleeping too much: Not at all 4. Feeling tired or having little energy: More than half the days 5. Poor appetite or overeating: More than half the days 6. Feeling bad about yourself -- or that you are a failure or have let yourself or your family down: Several days 7. Trouble concentrating on things, such as reading the newspaper or watching television: Not at all 8. Moving or speaking so slowly that other people could have noticed. Or the opposite - being so fidgety or restless that you have been moving around a lot more than usual: Not at all 9. Thoughts that you would be better off , or of hurting yourself in some way: Not at all How difficult have these problems made it for you to do your work, take care of things at home, or get along with other people?: Somewhat difficult Total Score: 7 Knowledge Questionaire (BCKQ) - Information Information: [place] COPD Knowledge Questionnaire (BCKQ) This questionnaire is designed to find out what you know about your lung problem. It should be completed without help form anyone else. This usually takes between 10 and 20 minutes. Your answers will help us to find out what information you need to help you to understand and manage your lung condition. [place] the [place] which you think is the correct answer. COPD Assessment Test [CAT] - Questions Never cough = 0, Cough all the time = 5: 2 No phlegm = 0, Chest full of phlegm = 5: 2 No chest tightness = 0, Chest very tight = 5: 3 No breathless w/exertion = 0, Very breathless w/exertion = 5: 4 No limitations w/activity = 0, Very limited w/activity = 5: 4 Confident leaving home = 0, Not at all confident = 5: 3 Sleep soundly = 0, Don't sleep soundly = 5: 1 Lots of energy = 0, No energy at all = 5: 3 Total CAT score:: 22 Self-Efficacy 30-Day Re-eval Assessment We would like to know how confident you are in doing certain activities. Please select your confidence level for:: Select your confidence level for the following using the scale 1-10 where 1 is not at all confident and 10 is totally confident. Your score is the average of all 6 responses. Fatigue: How confident are you that you can keep the fatigue caused by your disease from interfering with the things you want to do? Select Number: 5 Physical Discomfort or Pain: How confident are you that you can keep the physical discomfort or pain of your disease from interfering with the things you want to do? Select Number: 5 Emotional Distress: How confident are you that you can keep the emotional distress caused by your disease from interfering with the things you want to do? Select Number: 5 Other Symptoms or Health Problems: How confident are you that you can keep other symptoms or health problems from interfering with the things you want to do? Select Number: 5 Different Tasks and Activities: How confident are you that you can do the different tasks and activities needed to manage your health condition so as to reduce your need to see a doctor? Select Number: 4 Medication: How confident are you that you can do things other than just taking medication to reduce how much your illness affects your everyday life? Select Number: 7 Total Score:: 5 Nutrition Survey
[2022-09-06 09:03] VITALS: BP 112/60; BP 132/68; O2SAT 94; BMI 28.1
== END 2022-10-01 23:59 ==
LOC: PR 13:00
PROVIDERS: PCP Internal Medicine; Referring Provider Internal Medicine Critical Care Medicine; Visit Provider Internal Medicine Critical Care Medicine
DX: J44.9 Chronic obstructive pulmonary disease, unspecified (principal); I37.1 Nonrheumatic pulmonary valve insufficiency; R06.00 Dyspnea, unspecified; I27.20 Pulmonary hypertension, unspecified
CPT/HCPCS: 97150; 94626

== ENCOUNTER → 2022-10-01 | Outpatient (CLI) | payer MEDICARE, OTHER, SELFPAY ==
[2022-09-06 09:03] VITALS: BMI 28.1
--- NOTE | 2022-10-01 11:40 | RAD_ITS ---
INDICATION: dyspnea EXAMINATION/TECHNIQUE: X-RAY - XR Chest 2 Views COMPARISON: Prior study dated: April 15, 2022 FINDINGS: LINES/DEVICES: None. LUNGS: No consolidation, edema or effusion. No pneumothorax. MEDIASTINUM AND CARDIOVASCULAR STRUCTURES: Cardiac silhouette not enlarged. Central airways and mediastinal contour are unremarkable. BONES AND SOFT TISSUES: Unremarkable. RAD/Chest PA and Lateral IMPRESSION: No radiographic evidence of acute cardiopulmonary disease. Electronically Signed: Mary Evans MD at 11:59 EDT ,
[2022-10-01 12:12] LABS: Anion Gap 3 (5-15); BUN 14 mg/dL (7-18); BUN/Creat Ratio 21.1 RATIO (10-20); Calcium,Total 8.8 mg/dL (8.5-10.1); Chloride 103 mmol/L (98-107); Creatinine, Serum 0.66 mg/dL (0.55-1.02); EST Glomerular Filtration Rate 92 mL/min (>60); Est Glom Filt Rate - Afr Amer 111 mL/min (>60); Glucose 125 mg/dL (74-106); Potassium 4.2 mmol/L (3.5-5.1); Sodium Level 138 mmol/L (136-145)
[2022-10-01 12:13] LABS: BNP,B-Type NATRIURETIC PEPTIDE 33.9 pg/mL (0-100)
== END | disposition home or self-care (01) ==
PROVIDERS: PCP Internal Medicine; Referring Provider Nurse Practitioner Acute Care; Visit Provider Nurse Practitioner Acute Care
DX: R06.00 Dyspnea, unspecified (principal)
CPT/HCPCS: 36415; 71046; 80048; 83880

== ENCOUNTER 2022-10-04 07:07 | Outpatient (RCR) | payer MEDICARE, OTHER, SELFPAY ==
[2022-09-06 09:03] VITALS: BMI 28.1
[2022-10-02 01:29] VITALS: BP 112/60; BP 132/68
--- NOTE | 2022-10-04 08:07 | PR.ITP_ITS ---
Exercise - Initial Assessment Visit Session Number:: 17 Physician Prescribed Exercise Maximum Exercise HR:: 118 Resting Blood Pressure: 124/62 Maximum Exercise Blood Pressure: 148/76 Minimum SpO2 with exercise: 91 EKG Type: NSR to ST Nutrition/Wt Mgmt - Initial Visit Session Number:: 17 Weight Management Admit Height:: 5 ft 1 in Admit Weight:: 149 lb Admit BMI:: 28.1 Nutrition/Wt Mgmt - 30-Day Visit Date of Eval: 10/04/22 Session Number:: 17 Weight Management Height: 5 ft 1 in Weight:: 149 lb BMI: 28.1 Nutrition/Wt Mgmt - 60-Day Visit Date of Eval: 10/04/22 Session Number:: 17 Weight Management Height: 5 ft 1 in Weight:: 149 lb BMI: 28.1 Weight Goals Progress:: Progressing Nutrition/Wt Mgmt - 90-Day Visit Session Number:: 17 Weight Management Height: 5 ft 1 in Weight:: 149 lb BMI: 28.1 Weight Goals Progress:: Progressing Nutrition/Wt Mgmt - Final Visit Session Number:: 17 Weight Management Height: 5 ft 1 in Weight:: 149 lb BMI: 28.1 Psychosocial - Initial Assess Visit Session Number:: 17 Problems/Goals History of Emotional Disorders: None Psychosocial - 30-Day Visit Date of Eval: 10/04/22 Session Number:: 17 Problems/Goals History of Emotional Disorders: None Psychosocial - 60-Day Visit Date of Eval: 10/04/22 Session Number:: 17 Problems/Goals History of Emotional Disorders: None Psychosocial - 90-Day Visit Session Number:: 17 Problems/Goals History of Emotional Disorders: None Psychosocial - Final Assess Visit Session Number:: 17 Problems/Goals History of Emotional Disorders: None Oxygen & Oxygen Titration Init Visit Session Number:: 17 Initial Assessment SpO2:: 91 Oxygen & Oxygen Titration 30D Visit Date of Eval: 10/04/22 Session Number:: 17 Reassessment SpO2:: 91 Oxygen & Oxygen Titration 60D Visit Date of Eval: 10/04/22 Session Number:: 17 Reassessment Reassessment- 60 Days: Demonstrate knowledge of O2 Rx at rest & w/exercise SpO2:: 91 Oxygen & Oxygen Titration 90D Visit Date of Eval: 10/04/22 Session Number:: 17 Reassessment SpO2:: 91 Oxygen & Oxygen Titration BETTY Visit Date of Eval: 10/04/22 Session Number:: 17 Reassessment SpO2:: 91 Core Components - Initial Visit Session Number:: 17 Core Components - 30 DAYS Visit Date of Eval: 10/04/22 Session Number:: 17 Core Components - 60 DAYS Visit Date of Eval: 10/04/22 Session Number:: 17 Core Components - 90 DAYS Visit Session Number:: 17 Core Components - Final Visit Session Number:: 17 Knowledge Questionaire (BCKQ) Information Information: [place] COPD Knowledge Questionnaire (BCKQ) This questionnaire is designed to find out what you know about your lung problem. It should be completed without help form anyone else. This usually takes between 10 and 20 minutes. Your answers will help us to find out what information you need to help you to understand and manage your lung condition. [place] the [place] which you think is the correct answer. Nutrition Survey Nutrition Survey Instructions Scoring Instructions
[2022-10-04 08:14] VITALS: BMI 28.1
[2022-10-04 08:18] VITALS: BP 124/62; O2SAT 91
== END 2022-11-01 23:59 ==
LOC: PR 07:07
PROVIDERS: PCP Internal Medicine; Referring Provider Internal Medicine Critical Care Medicine; Visit Provider Internal Medicine Critical Care Medicine
DX: J44.9 Chronic obstructive pulmonary disease, unspecified (principal); I37.1 Nonrheumatic pulmonary valve insufficiency; R06.00 Dyspnea, unspecified; I27.20 Pulmonary hypertension, unspecified
CPT/HCPCS: 97150; 94626

== ENCOUNTER → 2022-11-15 | Outpatient (CLI) | payer MEDICARE, OTHER, SELFPAY ==
[2022-10-04 08:14] VITALS: BMI 28.1
--- NOTE | 2022-11-15 12:38 | RAD_ITS ---
STUDY: X-RAY - RIGHT SHOULDER REASON FOR EXAM: Female, 77 years old. New onset of shoulder pain. No known injury. TECHNIQUE: 4 view(s) of the shoulder. COMPARISON: None. FINDINGS: There is mild degenerative arthrosis of the glenohumeral articulation. Normal acromioclavicular joint. Normal acromion. Decreased distance between the humeral head and acromion in keeping with rotator cuff pathology. Normal humeral head and visualized proximal humerus. The soft tissue structures are unremarkable. Normal visualized pulmonary apex. RAD/Shoulder min 2 Views IMPRESSION: Mild degree of degenerative changes. Decreased distance between the humeral head and acromion suggestive of rotator cuff pathology. Electronically Signed: Peewee Almodovar MD at 13:20 EDT ,
--- NOTE | 2022-11-15 12:38 | RAD_ITS ---
STUDY: X-RAY - CERVICAL SPINE REASON FOR EXAM: Female, 77 years old. New onset of neck pain. No known injury. TECHNIQUE: 5 view(s) of the cervical spine were obtained including oblique views. COMPARISON: None FINDINGS: There are degenerative changes of the anterior atlantoaxial articulation. Normal odontoid process. There is straightening of the normal cervical lordosis. There is multi-level endplate spondylosis. There is multi-level degenerative disc disease with multilevel disc space narrowing. Normal visualized intervertebral neuroforamina. The soft tissue structures are unremarkable. RAD/Cerv Spine 4 or 5 Views IMPRESSION: Loss of the normal cervical lordosis. Multilevel degenerative changes. Facet joint osteoarthritis. Electronically Signed: Peewee Almodovar MD at 13:19 EDT ,
== END | disposition home or self-care (01) ==
PROVIDERS: PCP Internal Medicine; Referring Provider Physician Assistant; Visit Provider Physician Assistant
DX: M25.511 Pain in right shoulder (principal); M54.2 Cervicalgia
CPT/HCPCS: 72050; 73030